=== PATIENT | female | born 1950 | race Caucasian/White ===

== ENCOUNTER 2024-07-17 14:57 | Outpatient (AMB) | payer MEDICARE, SELFPAY ==
[2024-07-17 15:01] VITALS: BP 164/80; PULSE 113; O2SAT 94; BMI 40.4
--- NOTE | 2024-07-17 15:01 | A.OFFVIS_ITS ---
Vital Signs 07/17/24 15:01 Height 5 ft 1 in Weight 213 lb 13.574 oz BMI 40.4 BP 164/80 H Blood Pressure Location Lt brachial Position Sitting Pulse 113 H Pulse Source Pulse Oximeter Pulse Oximetry (%) 94 Oxygen Delivery Method Room Air Intake Visit Reasons: Abnormal CT scan Auto Glass Worker Required: No Manager Personal: Manager Personal offered & declined Allergies aspirin Allergy (Verified 07/17/24 15:17) bleeding iodine Allergy (Verified 07/17/24 15:17) Nausea and Vomiting Penicillins Allergy (Verified 07/17/24 15:17) hives Sulfa (Sulfonamide Antibiotics) Allergy (Verified 07/17/24 15:17) hives Medication List - Last Reconciled 07/17/24 by Mary Kay Pham LPN albuterol sulfate 90 mcg/actuation 1 inh inhalation Q4H PRN fluticasone propionate 50 mcg/actuation (Flonase Allergy Relief) 1 spray intranasal DAILY omeprazole 40 mg PO DAILY HPI Comments Details: 07/17/2024 the patient is here for pulmonary evaluation. The patient is a 74 year woman with a known history of worsening cough. Apparently she was in his usual state health until sometime in April when she started developing significant weakness to the point that she could not even stand. EMS was called to the scene and she was brought to the [facility] ED where she was briefly admitted. The patient did have a a full workup and finally discovered that she had COVID-19. The patient did have a CT scan of the chest during that admission. Initially noncontrast. I did personally reviewed. It appears that she does have enlarged thyroid gland left more than right. In addition to that she has a very narrow trachea with a crescent panchal signs suggesting some degree of proximal tracheomalacia. The resident mid trachea and distal trachea appeared to be completely fine. She also has a 1.3 cm elongated nodule in the right middle lobe area. The next day she did have a CTA that ruled out that this was a vascular structure. Therefore was recommended she have a CT scan 6 months from prior just to make sure to follow it up. The patient has not had any CT scans previously to review. Ultimately she started developing a significant cough after that. The cough is persistent. Is for the most part nonproductive although sometimes she does have some chest congestion. She has had significant laryngospasm that occur after the coughing spells. And sometimes she has loses her breath. She was placed on Breo and also given a course few courses of prednisone. In the Breo she seems to be tolerating okay she also has been using her rescue inhaler often to the point that she tends to be little tachycardic. She is also having some daytime drowsiness. The patient has an elevated [place] score 07/26. Her does state that she has significant snoring. Therefore sleep study will be helpful as well. We did teach her how to use a nebulizer in the office. I do believe a nebulizer will help her with mucus clearance. An Acapella valve will also be requested for c hest PT. will provide her with cough suppressant therapy to keep her from coughing to minimize further injury to her larynx and also proximal trachea. 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 Chronic cough Social History (Updated 07/17/24 @ 15:08 by Mary Kay Pham LPN) Patient Tobacco Use Status: Never used Tobacco Physical Exam Vital Signs: Last Vital Signs Pulse 113 H 07/17/24 15:01 BP 164/80 H 07/17/24 15:01 Pulse Ox 94 07/17/24 15:01 Oxygen Delivery Method Room Air 07/17/24 15:01 BMI result Body Mass Index 40.4 Results Reviewed Results Reviewed: personally review CT chest and CTA 04/2024 with tracheomalecia/crescent panchal sign in the proximal trachea and 1.3 elongated RML density Assessment & Plan Assessment & Plan (1) Chronic cough: Code(s): R05.3 - Chronic cough Category: Medical (2) 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: Code(s): U09.9 - Post COVID-19 condition, unspecified Category: Medical (3) Tracheomalacia: Comment: proximal trachea Code(s): J39.8 - Other specified diseases of upper respiratory tract Category: Medical (4) Pulmonary nodule: Comment: RML 1.3cm, not vascular anomaly based on CTA Code(s): R91.1 - Solitary pulmonary nodule Category: Medical (5) VIOLETTE (obstructive sleep apnea): Code(s): G47.33 - Obstructive sleep apnea (adult) (pediatric) Category: Medical Plan Breo daily start nebulizer with xopenex BID CPT with acapella valve BID cough medicine PSG PFTs Will need a repeat CT chest in 2-3 months F/U 6-8 weeks Orders: Orders RT home sleep study Today G47.33 - Obstructive sleep apnea (adult) (pediatric) PFT pulmonary function test Today R05.3 - Chronic cough Medications: New xsbvnlldzoh-ydgwgqaef-ppbxecve 100-62.5-25 mcg (Trelegy Ellipta) 1 inh inhalation DAILY 30 days 60 ea 11RF J44.9 - Chronic obstructive pulmonary dise ase, unspecified codeine-guaifenesin 10-100 mg/5 mL 10 mL PO Q6H 10 days PRN 300 mL 0RF cough levalbuterol HCl 1.25 mg (3 mL) inhalation BID 30 days 180 mL 6RF J44.9 - Chronic obstructive pulmonary disease, unspecified benzonatate 200 mg PO BID 30 days PRN 60 caps 6RF cough Coding Level of Care Code New Pt Level 5 (50408) Diagnoses Chronic cough R05.3 [id number] syndrome U09.9 Tracheomalacia J39.8 Pulmonary nodule R91.1 VIOLETTE (obstructive sleep apnea) G47.33 Time Spent (min) 60
== END 2024-07-17 16:02 | disposition home or self-care (01) ==
PROVIDERS: PCP Hospitalist; Visit Provider Hospitalist
DX: R05.3 Chronic cough (principal); U09.9 Post COVID-19 condition, unspecified; J39.8 Other specified diseases of upper respiratory tract; R91.1 Solitary pulmonary nodule; G47.33 Obstructive sleep apnea (adult) (pediatric)
CPT/HCPCS: 99205

== ENCOUNTER → 2024-07-17 14:57 | Outpatient (BNVA) | payer MEDICARE, SELFPAY | PROVIDERS: PCP Hospitalist; Visit Provider Hospitalist | DX: R05.3 Chronic cough (principal); R91.1 Solitary pulmonary nodule; J39.8 Other specified diseases of upper respiratory tract; G47.33 Obstructive sleep apnea (adult) (pediatric); U09.9 Post COVID-19 condition, unspecified | CPT/HCPCS: 99202 ==

== ENCOUNTER 2024-07-21 10:33 | Outpatient (REF) | payer MEDICARE, SELFPAY ==
--- NOTE | ~2024-07-21 | US_ITS ---
EXAMINATION: US THYROID CLINICAL INFORMATION: Nontoxic multinodular goiter. COMPARISON: None available. TECHNIQUE: Linear transducer grayscale and color Doppler examination with attention to the region of the thyroid. FINDINGS: SIZE: Measurements of the thyroid lobes and nodules are given in sagittal, anteroposterior and transverse dimensions respectively. Right Thyroid Lobe: 5.0 x 2.3 x 2.8 cm, volume 17.1 mL. Parenchyma: The gland echotexture is heterogeneous. Thyroid vascularity is normal. Left Thyroid Lobe: 5.1 x 3.2 x 3.2 cm, volume 27.6 mL. Parenchyma: The gland echotexture is heterogeneous. Thyroid vascularity is normal. Isthmus: 1.1 cm in maximum AP dimension. Estimated total number of nodules greater than or equal to 1 cm: 3. [employer] nodules are described as follows: 1. Location: Right mid. Size: 1.5 x 1.1 x 1.2 cm, volume 1.0 mL. Nodule characteristics: Composition: Solid (2). Echogenicity: Hypoechoic (2). Shape: Not taller than wide (0). Margins: Smooth (0). Echogenic Foci: None (0). ACR TI-RADS total points: 4 ACR TI-RADS category: 4 2. Location: Right mid/inferior. Size: 0.9 x 1.1 x 0.9 cm, volume 0.5 mL. Nodule characteristics: Composition: Solid (2). Echogenicity: Hyperechoic (1). Shape: Taller than wide (3). Margins: Smooth (0). Echogenic Foci: None (0). ACR TI-RADS total points: 6 ACR TI-RADS category: 4 3. Location: Left inferior. Size: 3.0 x 3.4 x 3.2 cm, volume 17.0 mL. Nodule characteristics: Composition: Solid (2). Echogenicity: Hypoechoic (2). Shape: Taller than wide (3). Margins: Extrathyroidal extension (3). Echogenic Foci: None (0). ACR TI-RADS total points: 10 ACR TI-RADS category: 5 NODES: No lymphadenopathy is seen in the tissue surrounding the thyroid gland. US/US thyroid IMPRESSION: 3.4 cm LEFT TR 5 thyroid nodule and 1.5 cm RIGHT TR 4 thyroid nodule Needs criteria for biopsy. Fine-needle aspiration recommended. Enlarged, heterogeneous multinodular thyroid gland This study was [facility] on [facility], [facility]24 for interpretation. PSA staff will provide results to referring provider at this time. ACR TI-RADS RECOMMENDATION REFERENCE: Ultrasound-guided fine-needle aspiration, followup ultrasound, no further follow up. * TR1 (0 point) and TR2 (2 points): No FNA or follow up. * TR3 (3 points): FNA if more than or equal to 2.5 cm in maximum dimension, followup ultrasound in 1, 3 and 5 years if 1.5 to 2.4 cm in maximum dimension. * TR4 (4-6 points): FNA if more than or equal to 1.5 cm in maximum dimension, followup ultrasound in 1, 2, 3 and 5 years if 1 to 1.4 cm in maximum dimension. * TR5 (more than or equal to 7 points): FNA if more than or equal to 1 cm in maximum dimension, followup ultrasound every year for 5 years if 0.5 to 0.9 cm in maximum dimension. * TR3, TR4 or TR5 nodules that are below the size threshold for followup receive no follow up. Electronically signed by: Edith Moreira MD 09/15/2024 09:11 AM [facility]
== END 2024-07-21 10:34 | disposition home or self-care (01) ==
LOC: HO.US 10:33
PROVIDERS: PCP Hospitalist
DX: E04.2 Nontoxic multinodular goiter (principal)
CPT/HCPCS: 76536

== ENCOUNTER 2024-09-10 12:18 | Outpatient (REF) | payer MEDICARE, SELFPAY ==
--- NOTE | 2024-09-10 12:28 | PFT_ITS ---
Flows: FEV1: 87 % of predicted at 1.62 L FVC: 80 % of predicted at 1.94 L FEV1/FVC: 84 % Bronchodilator response: Bronchodilator testing not performed as patient took albuterol approximately 60 minutes prior to testing. Volumes: Patient unable to perform lung volumes maneuvers. Diffusion capacity: Mildly decreased Impression: No obstructive ventilatory defect. Bronchodilator testing not performed as patient took albuterol approximately 60 minutes prior to testing. Patient unable to perform lung volumes maneuvers. Decreased diffusion capacity suggests emphysema. MTDD
== END 2024-09-10 12:19 | disposition home or self-care (01) ==
LOC: HO.RESP 12:18
PROVIDERS: PCP Hospitalist; Visit Provider Hospitalist
DX: G47.33 Obstructive sleep apnea (adult) (pediatric) (principal); R05.3 Chronic cough
CPT/HCPCS: 94010; 94640; 94727; 94729; 95806

== ENCOUNTER → 2024-09-10 12:28 | Outpatient (BNV) | payer MEDICARE, SELFPAY | PROVIDERS: PCP Hospitalist; Visit Provider Internal Medicine Pulmonary Disease | DX: R05.3 Chronic cough (principal) | CPT/HCPCS: 94060; 94729 ==

== ENCOUNTER 2024-09-17 09:15 | Outpatient (AMB) | payer MEDICARE, SELFPAY ==
--- NOTE | 2024-09-17 09:22 | MHC.OFFVIS ---
Vital Signs 09/17/24 09:25 Weight 200 lb 9.93 oz BP 118/58 L Blood Pressure Location Lt brachial Position Sitting Pulse 86 Pulse Oximetry (%) 96 Oxygen Delivery Method Room Air Intake Visit Reasons: abnormal CT scan Allergies aspirin Allergy (Verified 09/17/24 09:28) bleeding iodine Allergy (Verified 09/17/24 09:) Nausea and Vomiting Penicillins Allergy (Verified 09/17/24 09:28) hives Sulfa (Sulfonamide Antibiotics) Allergy (Verified 09/17/24 09:) hives Medication List - Last Reconciled 09/17/24 by Erika Huerta LPN albuterol sulfate 90 mcg/actuation 1 inh inhalation Q4H PRN benzonatate 200 mg PO BID PRN 30 days fluticasone furoate-vilanterol 200-25 mcg/dose (Breo Ellipta) 1 inh inhalation DAILY fluticasone propionate 50 mcg/actuation (Flonase Allergy Relief) 1 spray intranasal DAILY levalbuterol HCl 1.25 mg (3 mL) inhalation BID 30 days metoprolol succinate ER 25 mg PO DAILY HPI Comments Details: The patient is a 74 year woman with a known history of worsening cough. Apparently she was in his usual state health until sometime in April when she started developing significant weakness to the point that she could not even stand. EMS was called to the scene and she was brought to the [facility] ED where she was briefly admitted. The patient did have a a full workup and finally discovered that she had COVID-19. The patient did have a CT scan of the chest during that admission. Initially noncontrast. I did personally reviewed. It appears that she does have enlarged thyroid gland left more than right. In addition to that she has a very narrow trachea with a crescent panchal signs suggesting some degree of proximal tracheomalacia. The resident mid trachea and distal trachea appeared to be completely fine. She also has a 1.3 cm elongated nodule in the right middle lobe area. The next day she did have a CTA that ruled out that this was a vascular structure. Therefore was recommended she have a CT scan 6 months from prior just to make sure to follow it up. The patient has not had any CT scans previously to review. Ultimately she started developing a significant cough after that. The cough is persistent. Is for the most part nonproductive although sometimes she does have some chest congestion. She has had significant laryngospasm that occur after the coughing spells. And sometimes she has loses her breath. She was placed on Breo and also given a course few courses of prednisone. In the Breo she seems to be tolerating okay she also has been using her rescue inhaler often to the point that she tends to be little tachycardic. She is also having some daytime drowsiness. The patient has an elevated [place] score 11/24. Her does state that she has significant snoring. Therefore sleep study will be helpful as well. We did teach her how to use a nebulizer in the office. I do believe a nebulizer will help her with mucus clearance. An Acapella valve will also be requested for chest PT. will provide her with cough suppressant therapy to keep her from coughing to minimize further injury to her larynx and also proximal trachea. 07/18/2025 the patient is here for a pulmonary follow-up visit. Overall she is feeling better. She is using the nebulizer and also the CPT with a Acapella valve. This has been affecting beneficial. She is also using the inhaler. Her cough is overall better. She is trying the cough technique. She is also using the cough suppressant. She does have evidence of tracheomalacia. In addition to that she does have daytime drowsiness. Her [place] score is elevated 11/24. She did have a sleep study in demonstrated significant sleep apnea. Therefore based on her cardiovascular risk factors with heart disease and has significant daytime drowsiness will be important for her to start CPAP therapy. I briefly spoke to her about it and will go ahead and send a script to the local [facility] in order to provide with the supplies in the expertise. The patient will come back in 3-4 months. I which point the patient will also need a CT scan to follow-up with the pulmonary nodules that she had before. She prefers to have this at [facility]. [facility] Medical History (Updated 07/19/24 @ 20:34 by Raz Amos MD) VIOLETTE (obstructive sleep apnea) Pulmonary nodule Tracheomalacia Oarn-[id number]-[id number] syndrome Chronic cough Social History (Updated 07/17/24 @ 15:08 by Mary Kay Pham LPN) Patient Tobacco Use Status: Never used Tobacco Review of Systems Const Reports daytime sleepiness and Reports snoring Eyes Reports no additional complaints ENT Denies change in voice Card Denies chest pain Resp Reports cough, Reports snoring and Denies wheezing GI Reports no additional complaints Musc Reports myalgias Skin/Breast Denies rash Endo Reports no additional complaints Ricki/Lymph Reports no additional complaints Aller/Immun Denies wheezing Physical Exam Vital Signs: Last Vital Signs Pulse 86 09/17/24 09:25 BP 118/58 L 09/17/24 09:25 Pulse Ox 96 09/17/24 09:25 Oxygen Delivery Method Room Air 09/17/24 09:25 Const General: comfortable HEENT Head: Yes normocephalic Neck Neck: Yes supple Chest Chest palpation & inspection: normal inspection of the chest Resp Effort & Inspection: normal respiratory effort and Actively coughing Auscultation: diminished lung sounds Cardio Heart sounds: S1 normal heart sound present and S2 normal heart sound present GI Palpation (GI): Soft to palpation Skin General skin exam: no rashes or lesions noted Extrem General: No cyanosis Assessment & Plan Assessment & Plan (1) Chronic cough: Code(s): R05.3 - Chronic cough Category: Medical (2) [id number] syndrome: Code(s): U09.9 - Post COVID-19 condition, unspecified Category: Medical (3) Tracheomalacia: Comment: proximal trachea Code(s): J39.8 - Other specified diseases of upper respiratory tract Category: Medical (4) Pulmonary nodule: Comment: RML 1.3cm, not vascular anomaly based on CTA Code(s): R91.1 - Solitary pulmonary nodule Category: Medical (5) VIOLETTE (obstructive sleep apnea): Code(s): G47.33 - Obstructive sleep apnea (adult) (pediatric) Category: Medical Plan Breo daily nebulizer with xopenex BID CPT with acapella valve BID cough medicine start APAP Will need a repeat CT chest. Pt prefers [facility] F/U 3-4 months Orders: Orders CT chest wo IV con 6 Weeks R91.1 - Solitary pulmonary nodule Coding Level of Care Code Est Pt Level 4 (15772) Complex EM visit Add On G2211 Diagnoses Chronic cough R05.3 [id number] syndrome U09.9 Tracheomalacia J39.8 Pulmonary nodule R91.1 VIOLETTE (obstructive sleep apnea) G47.33 Time Spent (min) 17
[2024-09-17 09:25] VITALS: BP 118/58; PULSE 86; O2SAT 96
== END 2024-09-17 09:58 | disposition home or self-care (01) ==
PROVIDERS: PCP Hospitalist; Visit Provider Hospitalist
DX: R05.3 Chronic cough (principal); U09.9 Post COVID-19 condition, unspecified; J39.8 Other specified diseases of upper respiratory tract; R91.1 Solitary pulmonary nodule; G47.33 Obstructive sleep apnea (adult) (pediatric)
CPT/HCPCS: 99214; G2211

== ENCOUNTER → 2024-09-17 09:15 | Outpatient (BNVA) | payer MEDICARE, SELFPAY | PROVIDERS: PCP Hospitalist; Visit Provider Hospitalist | DX: R05.3 Chronic cough (principal); R91.1 Solitary pulmonary nodule; U09.9 Post COVID-19 condition, unspecified; G47.33 Obstructive sleep apnea (adult) (pediatric); J39.8 Other specified diseases of upper respiratory tract | CPT/HCPCS: 99212 ==

== ENCOUNTER 2024-10-30 10:38 | Outpatient (AMB) | payer MEDICARE, SELFPAY ==
[2024-10-30 10:42] VITALS: BP 112/70; PULSE 73; O2SAT 96; BMI 38.3
--- NOTE | 2024-10-30 10:42 | MHC.OFFVIS ---
Vital Signs 10/30/24 10:42 Height 5 ft 1 in Weight 202 lb 13.204 oz BMI 38.3 BP 112/70 Blood Pressure Location Rt brachial Position Sitting Pulse 73 Pulse Source Pulse Oximeter Pulse Oximetry (%) 96 Oxygen Delivery Method Room Air Intake Visit Reasons: Cough Allergies aspirin Allergy (Verified 10/30/24 10:48) bleeding iodine Allergy (Verified 10/30/24 10:48) Nausea and Vomiting Penicillins Allergy (Verified 10/30/24 10:48) hives Sulfa (Sulfonamide Antibiotics) Allergy (Verified 10/30/24 10:48) hives HPI Comments Details: The patient is a 74 year woman with a known history of worsening cough. Apparently she was in his usual state health until sometime in April when she started developing significant weakness to the point that she could not even stand. EMS was called to the scene and she was brought to the [facility] ED where she was briefly admitted. The patient did have a a full workup and finally discovered that she had COVID-19. The patient did have a CT scan of the chest during that admission. Initially noncontrast. I did personally reviewed. It appears that she does have enlarged thyroid gland left more than right. In addition to that she has a very narrow trachea with a crescent panchal signs suggesting some degree of proximal tracheomalacia. The resident mid trachea and distal trachea appeared to be completely fine. She also has a 1.3 cm elongated nodule in the right middle lobe area. The next day she did have a CTA that ruled out that this was a vascular structure. Therefore was recommended she have a CT scan 6 months from prior just to make sure to follow it up. The patient has not had any CT scans previously to review. Ultimately she started developing a significant cough after that. The cough is persistent. Is for the most part nonproductive although sometimes she does have some chest congestion. She has had significant laryngospasm that occur after the coughing spells. And sometimes she has loses her breath. She was placed on Breo and also given a course few courses of prednisone. In the Breo she seems to be tolerating okay she also has been using her rescue inhaler often to the point that she tends to be little tachycardic. She is also having some daytime drowsiness. The patient has an elevated [place] score 11/24. Her does state that she has significant snoring. Therefore sleep study will be helpful as well. We did teach her how to use a nebulizer in the office. I do believe a nebulizer will help her with mucus clearance. An Acapella valve will also be requested for chest PT. will provide her with cough suppressant therapy to keep her from coughing to minimize further injury to her larynx and also proximal trachea. 07/18/2025 the patient is here for a pulmonary follow-up visit. Overall she is feeling better. She is using the nebulizer and also the CPT with a Acapella valve. This has been affecting beneficial. She is also using the inhaler. Her cough is overall better. She is trying the cough technique. She is also using the cough suppressant. She does have evidence of tracheomalacia. In addition to that she does have daytime drowsiness. Her [place] score is elevated 07/26. She did have a sleep study in demonstrated significant sleep apnea. Therefore based on her cardiovascular risk factors with heart disease and has significant daytime drowsiness will be important for her to start CPAP therapy. I briefly spoke to her about it and will go ahead and send a script to the local [employer] company in order to provide with the supplies in the expertise. The patient will come back in 3-4 months. I which point the patient will also need a CT scan to follow-up with the pulmonary nodules that she had before. She prefers to have this at [facility]. 10/30/2024 the patient is here for a pulmonary follow-up visit. She started the CPAP as she has been having hard time tolerating it. Will bring back and forth trying to find her a pressure that she can not tolerate. But her coughing gets worse when she is exhaling and therefore has a hard time. They are wondering a BiPAP but she is already on the lowest pressure 4 cm water so therefore BiPAP would not really play a role. She did have the ERS activated but that did not help either. She has a very sensitive cough right now and therefore would have to control the cough before trying it again. She has responded well to the Tessalon Perles that does not keep her from coughing at nighttime. Therefore will have her try codeine cough syrup will give her a small dose and see if she can tolerate it safely in his she can that we can consider using at nighttime along with her CPAP. She also apparently needs a CT scan of the chest and she has a hard time lying flat. I did have lay flat in the office and she did have some coughing episodes but at least her oxygen and her heart rate were stable. The family has been concerned because she does have some lower extremity edema. This is more than before. Will go ahead and request blood work including a BNP especially with a history heart disease. In addition to this the patient does have a hiatal hernia based on the CT scan that we did review. The patient is already sleeping elevated. She is already stopping her eating at 07:00 o'clock at nighttime and she has has small meals. She has some underlying neurological issues going on in her primary care doctor does wanting to get an MR of the brain but again she has a hard time lying flat so will have to wait for her cough and shortness of breath symptoms to improve before undergoing an MRI. We did again look at the CT scan of the chest that she had a [facility] demonstrating the nodular density in the right middle lobe. And she does have a scheduled CT scan for early December which hopefully the cough is better by then we can have that CT scan done. 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 Chronic cough Social History Patient Tobacco Use Status: Never used Tobacco Review of Systems Const Reports daytime sleepiness and Reports snoring Eyes Reports no additional complaints ENT Denies change in voice Card Denies chest pain and Reports leg edema Resp Reports cough, Reports snoring and Denies wheezing GI Reports no additional complaints Musc Reports myalgias Skin/Breast Denies rash Endo Reports no additional complaints Ricki/Lymph Reports no additional complaints Aller/Immun Denies wheezing Physical Exam Vital Signs: Last Vital Signs Pulse 73 10/30/24 10:42 BP 112/70 10/30/24 10:42 Pulse Ox 96 10/30/24 10:42 Oxygen Delivery Method Room Air 10/30/24 10:42 BMI result Body Mass Index 38.3 Const General: comfortable HEENT Head: Yes normocephalic Neck Neck: Yes supple Chest Chest palpation & inspection: normal inspection of the chest Resp Effort & Inspection: normal respiratory effort and Actively coughing Auscultation: diminished lung sounds Cardio Heart sounds: S1 normal heart sound present and S2 normal heart sound present GI Palpation (GI): Soft to palpation Skin General skin exam: no rashes or lesions noted Extrem General: No cyanosis Results Reviewed Results Reviewed: personally review CT chest and CTA 04/2024 with tracheomalecia/crescent panchal sign in the proximal trachea and 1.3 elongated RML density Assessment & Plan Assessment & Plan (1) Chronic cough: Code(s): R05.3 - Chronic cough Category: Medical (2) 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, unspecified Category: Medical (3) Tracheomalacia: Comment: proximal trachea Code(s): J39.8 - Other specified diseases of upper respiratory tract Category: Medical (4) Pulmonary nodule: Comment: RML 1.3cm, not vascular anomaly based on CTA Code(s): R91.1 - Solitary pulmonary nodule Category: Medical (5) VIOLETTE (obstructive sleep apnea): Code(s): G47.33 - Obstructive sleep apnea (adult) (pediatric) Category: Medical (6) Allergy: Code(s): T78.40XA - Allergy, unspecified, initial encounter Category: Medical Qualifiers: Encounter type: initial encounter Qualified Code(s): T78.40XA - Allergy, unspecified, initial encounter (7) CHF (congestive heart failure): Comment: LE edema, basilar crackles, elevated BNP Code(s): I50.9 - Heart failure, unspecified Category: Medical Qualifiers: Heart failure type: other Qualified Code(s): I50.9 - Heart failure, unspecified Plan Breo daily nebulizer with xopenex BID CPT with acapella valve BID cough medicine: trial codeine cough medicine holding APAP, hopefully retry if codeine helps Will need a repeat CT chest. Once she can lay flat safely bloodwork/allergy testing Diuretics x 3 days F/U 2 months Orders: Orders Resp Allergy Profile Region I 10/30/24 I50.9 - Heart failure, unspecified, R91.1 - Solitary pulmonary nodule, T78.40XA - Allergy, unspecified, initial encounter Basic Metabolic Panel 10/30/24 I50.9 - Heart failure, unspecified, T78.40XA - Allergy, unspecified, initial encounter Erythrocyte Sedimentation Rate 10/30/24 I50.9 - Heart failure, unspecified, T78.40XA - Allergy, unspecified, initial encounter Immunoglobulin E 10/30/24 I50.9 - Heart failure, unspecified, T78.40XA - Allergy, unspecified, initial encounter Complete Blood Count Auto Diff 10/30/24 I50.9 - Heart failure, unspecified, T78.40XA - Allergy, unspecified, initial encounter B Type Natriuretic Peptide 10/30/24 I50.9 - Heart failure, unspecified, T78.40XA - Allergy, unspecified, initial encounter Troponin-I High Sensitivity 10/30/24 I50.9 - Heart failure, unspecified, T78.40XA - Allergy, unspecified, initial encounter Medications: New codeine-guaifenesin 10-100 mg/5 mL 5 mL PO Q6H PRN 200 mL 0RF cough 10 days Coding Level of Care Code Est Pt Level 5 (11964) Diagnoses Chronic cough R05.3 Aydc-BRAEF-11 syndrome U09.9 Tracheomalacia J39.8 Pulmonary nodule R91.1 VIOLETTE (obstructive sleep apnea) G47.33 Allergy, initial encounter T78.40XA Encounter type: initial encounter Other congestive heart failure I50.9 Heart failure type: other Time Spent (min) 60
--- OUTSIDE RECORDS SUMMARY | 2024-10-30 12:08 | XMS_ITS | Clinical Summary ---
[facility] [address] [place] [address] Care Team Providers Care Marriage And Family Social Worker Name Role Phone Valentin Levi MD Primary Care Provider [phone] Surgical History Surgery Date Site/Laterality Comments TOTAL KNEE ARTHROPLASTY 12/2015 Right PROCEDURE: HISTORICAL TOTAL KNEE REPLACE; COMMENT: [place] SHOULDER SURGERY 2012 Left PROCEDURE: HISTORICAL SHOULDER SURGERY; COMMENT: rotator cuff injury, [place]. ELBOW SURGERY 2012 Left PROCEDURE: HISTORICAL ELBOW SURGERY; COMMENT: biceps tendon reattachment, [place]. Medical History Medical History Date Comments Hyperlipidemia DX:Hyperlipidemi a History of knee replacement, total, right 019 DX:History of knee replacement, total, right Family History Medical History Relation Name Comments Esophageal cancer Father at 64 . COPD Mother at 65. Relation Name Status Comments Father Mother Social History Tobacco Use Types Packs/Day Years Used Date Smoking Tobacco: Never Smokeless Tobacco: Never Alcohol Use Standard Drinks/Week Comments No 0 (1 standard drink = 0.6 oz pur e alcohol) Comments Unknown Sex and Gender Information Value Date Recorded Sex Assigned at Not on file Legal Sex Female 5:23 AM EST Gender Identity Not on file Sexual Orientation Not on file Obstetrics History Last Filed Vital Signs Vital Sign Reading Time Taken Comments Blood Pressure 122/76 12/09/2023 1:54 PM EDT Pulse 103 12/09/2023 1:54 PM EDT Temperature - - Respiratory Rate - - Oxygen Saturation - - Inhaled Oxygen Concentration - - Weight 93.9 kg (207 lb 1.6 oz) 12/09/2023 1:54 P M EDT Height 152.4 cm (5') 08/28/2023 1:31 PM EST Body Mass Index 40.45 08/28/2023 1:31 PM EST Plan of Treatment Upcoming Encounters Date Type Department Care Team (Late st Contact Info) Description 11/10/2024 11:00 AM EDT Clinical Support Cardiac and Pulmonary Rehabilitation - [facility] [address] [place] [address] Health Maintenance Due Date Last Done Comments Pneumococcal Vaccine: 50+ Years (1 of 1 - PCV) 1999 Zoster Vaccines (1 of 2) 1999 Cholesterol Screening (Lipid Panel) 08/05/2022 Colorectal Cancer Screening: Stool Based Tests (FOBT/FIT) 08/05/2022 Depression Screening 08/05/2022 Falls Risk Assessment 08/05/2022 Hepatitis C Screening 08/05/2022 Medicare Annual Wellness Visit 08/05/2022 Social Influencers of Health Screening 08/05/2022 COVID-19 Vaccine (2 - 2023-2 5 season) 2024 02/13/2021 Influenza Vaccine (#1) 2024 RSV Immunization Patients 60 + Years Old (1 - 1-dose 75+ series) 2024 Osteoporosis Screening (Bone Density Screening) 04/27/2029 04/27/2019 DTaP,Tdap,and Td Vaccines (3 - Td or Tdap) 05/23/2033 05/23/2023, 10/08/2018 HIB Vaccines Aged Out No longer eligi ble based on patient's age to complete this topic HPV Vaccines Aged Out No longer eligi ble based on patient's age to complete this topic Hepatitis A Vaccines Aged Out No long er eligible based on patient's age to complete this topic Hepatitis B Vaccines Aged Out No long er eligible based on patient's age to complete this topic IPV Vaccines Aged Out No longer eligi ble based on patient's age to complete this topic MMR Vaccines Aged Out No longer eligi ble based on patient's age to complete this topic Meningococcal ACWY Vaccine Aged Out N o longer eligible based on patient's age to complete this topic Meningococcal B Vacine Aged Out No lo nger eligible based on patient's age to complete this topic RSV Immunization Patients Under 20 months Aged Out No longer eligible b ased on patient's age to complete this topic Varicella Vaccines Aged Out No longer eligible based on patient's age to complete this topic Procedures Procedure Name Priority Date/Time Associated Diagnosis Comments DXA BONE DENSITY STUDY 1+ SITS AXIAL SKEL Routine 04/27/2019 2:36 PM EDT Encounter for screening for osteoporosis from Last 3 Months or Most Recently Relevant to Health Maintenance Results * DXA BONE DENSITY STUDY 1+ SITS AXIAL SKEL (04/27/2019 2:36 PM EDT) Anatomical Region Laterality Modality Bone Densitometr y 04/08/2019 11:0 9 AM EDT Narrative 04/27/2019 3:38 PM EDT BONE DENSITY ? Lumbar Spine T-score is +2.6 ?? (SD relative to 20-29 y/o adult) Z-score is +4.6 ??(SD relative to age matched peers) This is normal by criteria defined by the WHO. Left Hip T-score is +1.4 Z-score is +3.3 This is normal by criteria defined by the WHO. Impression: Based on the World Health Organization criteria, Yaquelin Chavez should be classified as having normal bone density. The [facility] Department of Internal Medicine recommends using National Osteoporosis Foundation (NOF) guidelines in treatment decisions related to osteoporosis. NOF guidelines suggest considering treatment for postmenopausal women and men aged 50 or older presenting with the following: History of hip or vertebral fracture. T-score less than or equal to -2.5 (DXA) at the femoral neck, total hip, or spine, after appropriate evaluation to exclude secondary causes. Low bone mass (T-score between -1.0 and -2.5 at the femoral neck or spine) AND a 10-year probability of a hip fracture greater than or equal to 3% OR a 10-year probability of a major osteoporosis-related fracture greater than or equal to 20% based on the [place]-adapted WHO algorithm Please note that all treatment decisions require clinical judgment and consideration of individual patient factors, including patient preferences, co-morbidities, previous drug use, risk factors not captured in the FRAX model (e.g., frailty, falls, vitamin D deficiency, increased bone turnover, interval significant decline in bone density) and possible under- or over-estimation of fracture risk by FRAX. Procedure Note Addison Aranda - 08/21/2022 BONE DENSITY Lumbar Spine T-score is +2.6 (SD relative to 20-29 y/o adult) Z-score is +4.6 (SD relative to age matched peers) This is normal by criteria defined by the WHO. Left Hip T-score is +1.4 Z-score is +3.3 This is normal by criteria defined by the WHO. Impression: Based on the World Health Organization criteria, Yaquelin E Scott shouldbe classified as having normal bone density. The [facility] Department of Internal Medicine recommendsusing National Osteoporosis Foundation (NOF) guidelines in treatmentdecisions related to osteoporosis. NOF guidelines suggest consideringtreatment for postmenopausal women and men aged 50 or older presentingwith the following: History of hip or vertebral fracture. T-score less than or equal to -2.5 (DXA) at the femoral neck, total hip,or spine, after appropriate evaluation to exclude secondary causes. Low bone mass (T-score between -1.0 and -2.5 at the femoral neck or spine)AND a 10-year probability of a hip fracture greater than or equal to 3% ORa 10-year probability of a major osteoporosis-related fracture greaterthan or equal to 20% based on the [place]-adapted WHO algorithm Please note that all treatment decisions require clinical judgment andconsideration of individual patient factors, including patientpreferences, co-morbidities, previous drug use, risk factors not capturedin the FRAX model (e.g., frailty, falls, vitamin D deficiency, increasedbone turnover, interval significant decline in bone density) and possibleunder- or over-estimation of fracture risk by FRAX. Raquel Cheng MD IMCyn[facility] DXA PROCEDURES Final Result from Last 3 Months or Most Recently Relevant to Health Maintenance Insurance [employer] MEDICARE Care Teams Marriage And Family Social Worker Relationship Specialty Start Date End Date Valentin Levi MD [address] [place] [address] PCP - General 05/26/24
--- OUTSIDE RECORDS SUMMARY | 2024-10-30 12:08 | XMS_ITS | Continuity of Care Document ---
Author Organization [place] - [facility], [facility] Address [address] [place] [address] Care Team Providers Care Railway Signal Technician Name Role Phone JOESPHPERRYCHALO CARA Primary Care Provider Assessment Encounter Date Assessment Date Assessment LastModified by Organization Details LastModified Time 09/30/2024 09/30/2024 Hx of cough and COVID in AprilAugust 16 requiring stent and severe COVID with chronic cough. Has had some hoarseness. Swallowing study normal. [email or web address] Not available 09/30/2024 17:12:20 Plan of Treatment Reminders Order Date Submit Date Provider Last Modified By Organization Details Last Modified Time Details Appointments None recorded . Lab None recorded . Referral speech therapy referral [address], [address], 5 11:03:59 Procedures None recorded . Surgeries None recorded . Imaging None recorded . Medication Orders None recorded . Patient TargetsNo targets recorded. Patient InstructionsNo instructions recorded. Reason for Referral Referring Physician: Chris bui, Otolaryngology, Encounter Date: 09/30/2024 Problems Name Problem SNOMED Code Status Onset Date Resolution Date Notes Provider Name and Address Organization Details Recorded Time Sensorineural hearing loss of bilateral ears 714207073 Active 2023 ELIANA LORENZANA [address], [address] [place] - [facility] 4 10:35:36 Unsteady when walking 91115470 Active 2023 VANDANA REHMAN MD [address] [facility],[place] [address], [place], [address], [place] - [facility] 4 11:15:19 Chronic cough 07463663 Active 2024 CHRIS NUNEZ MD [address] [place] [address], [place], [address], [place] - [facility] 5 20:24:15 Vocal nodules in adults 45541644 Active 2024 CHRIS NUNEZ MD [address] [facility],[place] [address], [place], [address], [place] [facility] 15:44:27 Tracheomalacia 07522477 Active 2024 CHRIS NUNEZ MD [address] [facility],[place] [address], [place], [address], [place] [facility] 15:44:41 Problem Notes None recorded. Procedures Surgical History Date Name Laterality Status Provider Name and Address Organization Details Recorded Time 09/30/19 25 Fiberoptic Laryngoscopy (Comprehensive) completed CHRIS WARREN MD [address], [address], [place] - [facility] 09/30/2024 15:44:06 02/06/20 24 Comp Audio with Tymps (86694 & 23597) completed ELIANA LORENZANA [address], [address], [place] [facility] 02/06/2024 10:34:07 total knee replacement completed Brianna Daniels [place] - [facility] 02/06/2024 10:37:01 procedure on shoulder completed Brianna Daniels [place] - [facility] 02/06/2024 10:37:09 complete repair of rotator cuff completed Brianna Daniels [place] [facility] 02/06/2024 10:37:40 procedure on elbow completed Brianna Daniels [place] [facility] 02/06/2024 10:38:13 Imaging Results None recorded. Procedure Notes None recorded. Medical Equipment None Reported. Allergies Allergen ID Allergen Name Allergen Category Reaction Reaction Severity Criticality Documentation Date Start Date Code Code System Note Provider Name and Address Organization Details Recorded Time 518806 Product containin g penicilli n (product) medicatio n Not available Not available Not available 02/06/2024 73617 8001 SNOMED Brianna [place], [place] - [facility] 10:28:43 657498 Substance with sulfonami de structure and antibacte rial mechanism of action (substanc e) medicatio n Not available Not available Not available 02/06/2024 84483 8003 SNOMED Brianna [place], [place] - [facility] 10:28:50 545515 wheat preparati on food,medi cation Not available Not available Not available 02/06/2024 09158 52 RxNorm Brianna [place], [place] - [facility] 10:28:58 185735 soy environme nt,food,m edication Not available Not available Not available 02/06/2024 39519 UNK Brianna [place] - [facility] 10:29:04 025559 shellfish derived food,medi cation Not available Not available Not available 02/06/2024 45295 UNK Brianna [place] - [facility] 4 10:29:41 037935 iodine medicatio n Not available Not available Not available 09/30/2024 5933 RxNorm Brianna [place]ton [place] - [facility] 5 15:46:41 076266 aspirin medicatio n Not available Not available Not available 09/30/2024 1191 RxNorm Brianna [place], [place] - [facility] 5 15:46:48 Medications Name Sig Start Date Stop Date Status Note LastModified by Organization Details LastModified Time atorvastati n 80 mg tablet Take 1 tablet every day by oral route. active Not Available Not Available No t Available Prilosec 20 mg capsule,del ayed release Take 1 capsule every day by oral route. 09/30 completed Not Available Not Available Not Available clopidogrel 75 mg tablet Take 1 tablet every day by oral route. active Not Available Not Available No t Available aspirin 81 mg capsule,del ayed release Take by oral route. active Not Available Not Available No t Available benzonatate 100 mg capsule Take 1 capsule 3 times a day by oral route. active Not Available Not Available No t Available pantoprazol e 40 mg tablet,andrea yed release Take 1 tablet every day by oral route. active Not Available Not Available No t Available losartan 25 mg tablet Take 1 tablet every day by oral route. active Not Available Not Available No t Available Breo Ellipta active Not Available Not Available Not Available metoprolol succinate ER 50 mg capsule sprinkle, ext. release 24 hr Take 1 capsule every day by oral route. active Not Available Not Available No t Available albuterol sulf 90 mcg/actuati on breath activated powder inhaler,sen sor Inhale 2 puffs every 4 hours by inhalatio n route. active Not Available Not Available No t Available Vitals None Recorded Social History None recorded. Functional Status None recorded. Mental Status None recorded. Family History Nothing Reported. Medical History Condition Response Thyroid Problems Y Heart Attack ([place]) Y Arthritis Y Hyperlipidemia Y GERD/Reflux Y Hypertension Y Gynecological HistoryNo gynecological history recorded. Obstetrics History GPAL:G 0 P 0 0 0 0 Past Encounters Encounter ID Performer Location Encounter Start Date Encounter Closed Date Diagnosis/Indication Diagnosis SNOMED-CT Code Diagnosis ICD10 Code Diagnosis Note [id number] CHRIS FREEMAN MD [facility] [address] [address] 09/30/2024 14:39:01 09/30/2024 15:53:55 Chronic cough 21215191 R05.3 Daughter reports chronic cough that was present prior to COVID but has been voice. I do not see any anatomical cause. Consider CT of sinus if sx persist. Vocal nodu les in adults 13907051 J38.2 Daughter reports voice is actually improved. There is small nodule on the right side. Speech is fluent. Daughter concerned about slurred speech Tracheomalacia 60920258 Q32.0 Sent by PCP here for management of tracheomal acia. Unfortunat clarisa this is in the purview of pulmonary or thoracic surgery. Her upper airway is normal except for the vocal nodule. Follow with Pulmonary or Thoracic if needed Health Concerns Section Related Observation LastModified by Organization Detai ls LastModified Time None Recorded Concern Status LastModified by Organization Details LastModified Time None Recorded Payers Encounter Date Sequence Insurance Name Policy Number Policy Ayala Covered Member ID Ayala Member ID Guarantor Name 09/30/2024 1 [facility] (MEDICARE REPLACEMENT/A DVANTAGE - HMO) [id number] Yaquelin Chavez [id number] Yaquelin Chavez Notes Date Note Type Note Provider Name and Address Organization Details Recorded Time 09/30/2024 text/html cough since COVI D 04/2024. Seeing pulmonary-Dr Ellsworth. Denies sinus issuesHad PFTs suggestive of COPD. Reports dx of tracheomalacia on imagingHad mobility issues after COVID and has muscle weakness. No cough today Her recent hospital discharge summary she has a past medical history significant for hypertension hyperlipidemia, reflux, diverticulitis, post-COVID syndrome, hepatic steatosis, cough and dyspnea who was found to have a STEMI requiring stenting of the right coronary artery. Cough improved after starting PPI. MBS was unremarkable. CT scan showed tracheomalacia. CHRIS WARREN MD [address] [place] [address],[place] [address], [place], [address], [facility] - [facility] 09/30/2024 17:13:25 OBGyn Episode No OBEpisode recorded.
--- OUTSIDE RECORDS SUMMARY | 2024-10-30 12:09 | XMS_ITS ---
Author Organization [employer] Address [address] [place] [address] Care Team Providers Care Inclusion Special Educator Name Role Phone LUCILA CORDERO Primary Care Provider Georgi Tierney Unavailable [phone] Allergies Allergen (clinical drug ingredient) Drug/Non Drug Allergy documented on EMR Reaction Allergy Type Onset Date Status Wheat wheat (uncoded) Unknown Allergy Acti ve aspirin Aspirin excessive bleeding Drug Allergy Active Iodine nausea and vomiting Drug Allergy Active Penicillin hives Drug Allergy Active Shellfish (FN) Shellfish-derived Products Unknown Drug Allergy Active Substance with sulfonamide structure and antibacterial mechanism of action (substance) Sulfa Antibiotics hives Drug Allergy Active REASON FOR VISIT slurred speech and confusion Medications Medication SIG (Take, Route, Frequency, Duration) Notes Start Date End Date Status Fluticasone Furoate-Vilanterol 100-25 MCG/ACT 1 puff Inhalation Once a day for 30 days 05/15/2024 Not-Taking predniSONE 10 MG take 4 tablets a day for 3 days, then 3 tablets a day for 3 days, then 2 tablets a day for 3 days, then 1 tablet a day for 3 days Orally Once a day for 12 days 05/15/2024 Not-Taking Symbicort 80-4.5 MCG/ACT 1 puff as neede d Inhalation Twice a day for 30 days 05/21/2024 Not-Taking guaiFENesin-Codeine 200-8 MG/5ML 5 mL as needed Orally every 6 hrs for 14 days 04/29/2024 Not-Taking Azithromycin 250 MG as directed Orally 2 tablets on the first day, then 1 tablet daily for 5 days 04/29/2024 Not-Taking Aspirin 81 MG 1 tablet Orally Once a day for 30 days Active Omeprazole 20 MG 1 capsule 30 minutes before morning meal Orally Once a day for 90 days Not-Taking Breo Ellipta 100-25 MCG/ACT 1 puff Inhalation Once a day for 30 days 05/18/2024 Not-Taking Delsym Cgh/Chest Pineda DM Child 5-100 MG/5ML as directed Orally Not -Taking predniSONE 20 MG 1 tablet Orally Once a day for 7 days 04/29/2024 Not-Taking Breo Ellipta 200-25 MCG/ACT INHALE 1 PUFF INTO THE LUNGS EVERY DAY for 30 Active Nystatin 269354 UNIT/GM 1 application Externally Twice a day for 30 days 09/09/2024 Active Benzonatate 200 MG 1 capsule Orally Thr ee times a day for 30 days 09/09/2024 Active Pantoprazole Sodium 40 MG 1 tablet 1/2 t o 1 hour before morning meal Orally twice a day for 30 days Active Benzonatate 100 MG 1 capsule as needed Orally Three times a day for 7 days 03/31/2024 Active Atorvastatin Calcium 80 MG 1 tablet Oral ly Once a day Active Trelegy Ellipta 200-62.5-25 MCG/ACT 1 puff Inhalation Once a day for 30 days 07/22/2024 Active Albuterol Sulfate HFA 108 (90 Base) MCG/ACT 1 puff as needed Inhalation every 4 hrs for 30 days Active Robitussin Cold Cough+ Chest prn Active Metoprolol Succinate ER 50 MG 1 tablet Orally Once a day Active Clopidogrel Bisulfate 75 MG 1 tablet Orally Once a day Active diphenhydrAMINE HCl 25 MG 1 capsule at b edtime as needed Orally Once a day for 2 days 10/29/2024 Active Problems Problem Type SNOMED Code ICD Code Onset Dates Problem Status W/U Status Risk Notes Problem 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) (8671259529) Post COVID-19 condition, 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) Active confirmed Vital Signs Temperature 96.5 degrees Fahrenheit 10/29/19 25 Oximetry 95 % 10/29/2024 Heart Rate 72 /min 10/29/2024 Blood pressure systolic 130 mm Hg 10/29/19 25 Blood pressure diastolic 80 mm Hg 025 Weight 204.8 lbs 10/29/2024 BMI 59.96 kg/m2 10/29/2024 Height 4'1'' in 10/29/2024 Encounters Encounter Location Date Provider Diagnosis [facility] [address] [place] [address] 10/29/2024 Georgi Tierney Slurred speech R47.8 1 ; Cough, unspecified R05.9 and Post COVID-19 condition, unspecified U09.9 Assessments Encounter Date Diagnosis (ICD Code) Assessment Notes Treatment Notes Treatment Clinical Notes Section Notes 10/29/2024 Slurred speech (ICD-10 - R47.81) 74-yrs with history of post coitus syndrome, hypertension, ST elevation WA status post stent, chronic cough tracheomalacia is here today for multiple complaints including intermittent blurry vision left-sided weakness and unsteady gait and fatigue reported slurred speech and left arm weakness. Patient is currently speaking very clearly making full sentences. is also present, there is no evidence of any neurological deficit. Patient states that it comes and goes, she feels weak and dizzy after she takes her antihypertensives . She is also complaining of ongoing cough. Patient is on metoprolol 50 mg daily and also losartan 25 mg daily reviewed her blood pressure recording at home she drops her blood pressure from 120s and 130 systolically to 101 and 102, patient reports she started feeling dizzy at that time. She be symptomatic with low blood pressure. With ongoing cough and low blood pressure as patient is symptomatic we will stop losartan. We have recommended encourage by mouth fluid intake. We also discussed about MRI of brain although she is on an appropriate treatment for stroke which includes aspirin and Plavix I spoke to patient's daughter and . Patient states she cannot tolerate MRI and cannot lay down. I will order an MRI of the brain have recommended that she takes Benadryl along with a small dose of Ativan to try the imaging however patient does not feel like she can undergo the testing. She also has upcoming CT of the chest per Dr. Amos and she is already worried about her being laying down. Overall fatigue weakness, her neurological exam is unremarkable. Pronator test is negative she is alert and oriented. Most likely post coital syndrome as the symptoms has been present since last year. We would recommend physical therapy and VNA services for blood pressure check and gait stability Lower extremity edema mostly dependent edema sitting in the chair the whole day we recommend out of bed ambulation we also recommended Nam wrap's and elevation History of ST elevation WA status post stent placement mid RCA DS, left main is 45% stenosis but medically treated. Patient was seen by Dr. Santos she will follow up as an outpatient with [facility] in 4-6 weeks. Continue with aspirin, continue Plavix 75 [place] daily atorvastatin 80 mg daily and metoprolol Lung nodulet followed by Dr. Amos pulmonology in [place] .Thyroid nodule she has history of subclinical hypothyroidism, multiple questions were answered today, spoke to patient's and daughter at length 10/29/2024 Cough, unspecified (ICD-10 - R05.9) 74-yrs with history of post coitus syndrome, hypertension, ST elevation [place] status post stent, chronic cough tracheomalacia is here today for multiple complaints including intermittent blurry vision left-sided weakness and unsteady gait and fatigue reported slurred speech and left arm weakness. Patient is currently speaking very clearly making full sentences. is also present, there is no evidence of any neurological deficit. Patient states that it comes and goes, she feels weak and dizzy after she takes her antihypertensives . She is also complaining of ongoing cough. Patient is on metoprolol 50 mg daily and also losartan 25 mg daily reviewed her blood pressure recording at home she drops her blood pressure from 120s and 130 systolically to 101 and 102, patient reports she started feeling dizzy at that time. She be symptomatic with low blood pressure. With ongoing cough and low blood pressure as patient is symptomatic we will stop losartan. We have recommended encourage by mouth fluid intake. We also discussed about MRI of brain although she is on an appropriate treatment for stroke which includes aspirin and Plavix I spoke to patient's daughter and . Patient states she cannot tolerate MRI and cannot lay down. I will order an MRI of the brain have recommended that she takes Benadryl along with a small dose of Ativan to try the imaging however patient does not feel like she can undergo the testing. She also has upcoming CT of the chest per Dr. Amos and she is already worried about her being laying down. Overall fatigue weakness, her neurological exam is unremarkable. Pronator test is negative she is alert and oriented. Most likely post coital syndrome as the symptoms has been present since last year. We would recommend physical therapy and VNA services for blood pressure check and gait stability Lower extremity edema mostly dependent edema sitting in the chair the whole day we recommend out of bed ambulation we also recommended Nam wrap's and elevation History of ST elevation [place] status post stent placement mid RCA DS, left main is 45% stenosis but medically treated. Patient was seen by Dr. Santos she will follow up as an outpatient with [facility] in 4-6 weeks. Continue with aspirin, continue Plavix 75 [place] daily atorvastatin 80 mg daily and metoprolol Lung nodulet followed by Dr. Amos pulmonology in [place] .Thyroid nodule she has history of subclinical hypothyroidism, multiple questions were answered today, spoke to patient's and daughter at length 10/29/2024 Post COVID-19 condition, unspecified (ICD-10 - U09.9) 74-yrs with history of post coitus syndrome, hypertension, ST elevation WA status post stent, chronic cough tracheomalacia is here today for multiple complaints including intermittent blurry vision left-sided weakness and unsteady gait and fatigue reported slurred speech and left arm weakness. Patient is currently speaking very clearly making full sentences. is also present, there is no evidence of any neurological deficit. Patient states that it comes and goes, she feels weak and dizzy after she takes her antihypertensives . She is also complaining of ongoing cough. Patient is on metoprolol 50 mg daily and also losartan 25 mg daily reviewed her blood pressure recording at home she drops her blood pressure from 120s and 130 systolically to 101 and 102, patient reports she started feeling dizzy at that time. She be symptomatic with low blood pressure. With ongoing cough and low blood pressure as patient is symptomatic we will stop losartan. We have recommended encourage by mouth fluid intake. We also discussed about MRI of brain although she is on an appropriate treatment for stroke which includes aspirin and Plavix I spoke to patient's daughter and . Patient states she cannot tolerate MRI and cannot lay down. I will order an MRI of the brain have recommended that she takes Benadryl along with a small dose of Ativan to try the imaging however patient does not feel like she can undergo the testing. She also has upcoming CT of the chest per Dr. Amos and she is already worried about her being laying down. Overall fatigue weakness, her neurological exam is unremarkable. Pronator test is negative she is alert and oriented. Most likely post coital syndrome as the symptoms has been present since last year. We would recommend physical therapy and VNA services for blood pressure check and gait stability Lower extremity edema mostly dependent edema sitting in the chair the whole day we recommend out of bed ambulation we also recommended Nam wrap's and elevation History of ST elevation [place] status post stent placement mid RCA DS, left main is 45% stenosis but medically treated. Patient was seen by Dr. Santos she will follow up as an outpatient with [facility] in 4-6 weeks. Continue with aspirin, continue Plavix 75 [place] daily atorvastatin 80 mg daily and metoprolol Lung nodulet followed by Dr. Amos pulmonology in [place] .Thyroid nodule she has history of subclinical hypothyroidism, multiple questions were answered today, spoke to patient's and daughter at length Plan Of Treatment Medication Medication Name Sig Start Date Stop Date Notes diphenhydrAMINE HCl 25 MG 1 capsule at b edtime as needed Orally Once a day for 2 days 10/29/2024 Pending Test Test Name Order Date MR C[place]illo WO 10/29/2024 Next Appt Details Provider Name:Georgi Tierney, 0 12/22/2024 11:30:00 AM, [address] [place] [address], [id number], Progress Notes * ONDINA YOUSSEFDEEDEEOB: [birth year] (74 yo F)Acc No.[id number]:10/29/2024 Patient:?YAQUELIN YOUSSEF Provider:?Georgi Tierney, :1950???Age:74 Y???Sex:Female D ate:10/29/2024 Phone: Address:[address] [place] [address], [place], [phone] Pcp:LUCILA CORDERO Subjective: * Chief Complaints: * ???Slurred speech and confus ion * HPI: ???Internal Medicine:?Yaquelin is 74 years old lady with acid reflux, arthritis and diverticulitis, hypertension, hiatal hernia, GERD, post covert syndrome, recent diagnosis of tracheomalacia , ST elevation WA in August 2024 and was treated at [facility]. patient received a mid RCA DS also the left main was 45% stenosed however he was medically managed.? patient is here today with her complaining of feeling weak and dizzy and at times she feels her left is weaker she has multiple other complaints including blurry vision which is intermittent, difficulty walking.? She also is complaining of lower extremity edema. patient also has a chronic cough,? ?was seen by pulmonology and recommended to start PPI twice a day she will also be having a pulmonology outpatient follow-up.? Patient was seen by speech therapy and also a barium swallow was done which was unremarkable but there was some question of tracheomalacia.? patient is supposed to be following with pulmonology Dr. Amos for lung mass and needs a CT of the chest however due to persistent cough and not able to lay down imaging could not have been completed.? I have a long discussion with the patient and her daughter over the phone about the multiple complaints.? We also reviewed her blood pressure recordings at home showing that her blood pressure drops from 1 2130 systolically 202 after medications in the morning she takes metoprolol and losartan.? Patient reports that she feels dizzy later in the day.? She also has blurry vision at times.? She is also telling me that the symptoms of weakness and gait instability is since May 2024 after her cope with infection. * ROS:?General/Constitutional:?Overall health?Good.?Change in appetite?denies.?Chills?denies.?Fever?denies.?Night sweats?denies.?Sleep disturbance?denies.?Weight gain?denies.?Weight loss?denies.?Neurologic:?Difficulty speaking?denies.?Dizziness?denies.?Gait abnormality?overall weakness fatigue.?Headache?denies.?Loss of strength?denies.?Memory loss?denies.?Seizures?denies.?Tingling/Numbness?denies .?Ophthalmologic:?Blurred vision?denies.?Discharge?denies.?Dry eye?denies.?Red eye?denies.?ENT:?Change in Voice?Denies.?Cold Symptoms?Denies.?Cough?,Admits.?Dizziness?Denies.?Nasal Congestion?Denies.?Otalgia?Denies.?postnasal drip?Denies.?Blocked ear?denies.?Nosebleed?denies.?Snoring?denies.?Cardiovascular:?Diaphoresis?Denies.?Pedal Edema?Denies.?PND (Paroxsymal nocturnal dyspnea)?Denies.?Chest pain?denies.?Difficulty laying flat?denies.?Dyspnea on exertion?denies.?Heart murmur?denies.?Orthopnea?denies.?Respiratory:?Snoring?denies.?Asthma?denies.?Cough?denies.?Shortness of breath with exertion?denies.?Sputum production?denies.?Wheezing?denies.?Gastrointestinal:?Change in bowel habits?denies.?Constipation?denies.?Decreased appetite?denies.?Diarrhea?denies.?Heartburn?denies.?Nausea?denies.?Vomiting?jass es.?Musculoskeletal:?tingling/numbness?Denies.?myalgias?Denies.?Joint Swelling?Denies.?extremeties?normal.?Arthritis?denies.?Back problems?denies.?Carpal tunnel?denies.?Joint stiffness?denies.?Muscle aches?denies.?Endocrine:?Bowel Changes?Denies.?Breast Discharge?Denies.?poor libido?Denies.?Cold intolerance?denies.?Excessive sweating?denies.?Excessive thirst?denies.?Frequent urination?denies.?Thyroid problems?denies.?Skin:?Bruising?Denies.?Eczema?denies.?Hair changes?denies.?Rash?denies.?Skin lesion(s)?denies.?Psychiatric:?Anxiety?denies.?Depressed mood?denies.?Difficulty sleeping?denies.?Nervous breakdown?denies.?Substance abuse?denies.?Urology:?abnormal menstrual bleeding?denies.?blood in urine?denies.?burning on urination?denies.?difficulty urinating?denies.?discharge?denies.?dysuria?denies.? * Medical History:? * Medications:?TakingMetoprolo l Succinate ER 50 MG Tablet Extended Release 24 Hour 1 tablet Orally Once a day Clopidogrel Bisulfate 75 MG Tablet 1 tablet Orally Once a day Atorvastatin Calcium 80 MG Tablet 1 tablet Orally Once a day Trelegy Ellipta 200-62.5-25 MCG/ACT Aerosol Powder Breath Activated 1 puff Inhalation Once a day Albuterol Sulfate HFA 108 (90 Base) MCG/ACT Aerosol Solution 1 puff as needed Inhalation every 4 hrs Robitussin Cold Cough+ Chest , Notes to Pharmacist: prnBenzonatate 100 MG Capsule 1 capsule as needed Orally Three times a day Breo Ellipta 200-25 MCG/ACT Aerosol Powder Breath Activated INHALE 1 PUFF INTO THE LUNGS EVERY DAY Nystatin 554145 UNIT/GM Powder 1 application Externally Twice a day Benzonatate 200 MG Capsule 1 capsule Orally Three times a day Pantoprazole Sodium 40 MG Tablet Delayed Release 1 tablet 1/2 to 1 hour before morning meal Orally twice a day Aspirin 81 MG Tablet Delayed Release 1 tablet Orally Once a day Taking Metoprolol Succinate ER 50 MG Tablet Extended Release 24 Hour 1 tablet Orally Once a day Taking Clopidogrel Bisulfate 75 MG Tablet 1 tablet Orally Once a day Taking Atorvastatin Calcium 80 MG Tablet 1 tablet Orally Once a day Taking Trelegy Ellipta 200-62.5-25 MCG/ACT Aerosol Powder Breath Activated 1 puff Inhalation Once a day Taking Albuterol Sulfate HFA 108 (90 Base) MCG/ACT Aerosol Solution 1 puff as needed Inhalation every 4 hrs Taking Robitussin Cold Cough+ Chest , Notes to Pharmacist: prnTaking Benzonatate 100 MG Capsule 1 capsule as needed Orally Three times a day Taking Breo Ellipta 200-25 MCG/ACT Aerosol Powder Breath Activated INHALE 1 PUFF INTO THE LUNGS EVERY DAY Taking Nystatin 346001 UNIT/GM Powder 1 application Externally Twice a day Taking Benzonatate 200 MG Capsule 1 capsule Orally Three times a day Taking Pantoprazole Sodium 40 MG Tablet Delayed Release 1 tablet 1/2 to 1 hour before morning meal Orally twice a day Taking Aspirin 81 MG Tablet Delayed Release 1 tablet Orally Once a day Not-TakingOmeprazole 20 MG Capsule Delayed Release 1 capsule 30 minutes before morning meal Orally Once a day Breo Ellipta 100-25 MCG/ACT Aerosol Powder Breath Activated 1 puff Inhalation Once a day Delsym Cgh/Chest Pineda DM Child 5-100 MG/5ML Liquid as directed Orally predniSONE 20 MG Tablet 1 tablet Orally Once a day guaiFENesin-Codeine 200-8 MG/5ML Liquid 5 mL as needed Orally every 6 hrs Azithromycin 250 MG Tablet as directed Orally 2 tablets on the first day, then 1 tablet daily Fluticasone Furoate-Vilanterol 100-25 MCG/ACT Aerosol Powder Breath Activated 1 puff Inhalation Once a day predniSONE 10 MG Tablet take 4 tablets a day for 3 days, then 3 tablets a day for 3 days, then 2 tablets a day for 3 days, then 1 tablet a day for 3 days Orally Once a day Symbicort 80-4.5 MCG/ACT Aerosol 1 puff as needed Inhalation Twice a day Not-Taking Omeprazole 20 MG Capsule Delayed Release 1 capsule 30 minutes before morning meal Orally Once a day Not-Taking Breo Ellipta 100-25 MCG/ACT Aerosol Powder Breath Activated 1 puff Inhalation Once a day Not-Taking Delsym [facility]/Chest Pineda DM Child 5-100 MG/5ML Liquid as directed Orally Not-Taking predniSONE 20 MG Tablet 1 tablet Orally Once a day Not-Taking guaiFENesin-Codeine 200-8 MG/5ML Liquid 5 mL as needed Orally every 6 hrs Not- Taking Azithromycin 250 MG Tablet as directed Orally 2 tablets on the first day, then 1 tablet daily Not-Taking Fluticasone Furoate-Vilanterol 100-25 MCG/ACT Aerosol Powder Breath Activated 1 puff Inhalation Once a day Not-Taking predniSONE 10 MG Tablet take 4 tablets a day for 3 days, then 3 tablets a day for 3 days, then 2 tablets a day for 3 days, then 1 tablet a day for 3 days Orally Once a day Not-Taking Symbicort 80-4.5 MCG/ACT Aerosol 1 puff as needed Inhalation Twice a day DiscontinuedLosartan Potassium 25 MG Tablet TAKE 1 TABLET BY MOUTH EVERY DAY FOR 30 DAYS Medication List reviewed and reconciled with the patientDiscontinued Losartan Potassium 25 MG Tablet TAKE 1 TABLET BY MOUTH EVERY DAY FOR 30 DAYS Medication List reviewed and reconciled with the patient * Allergies:?Aspirin: excessiv e bleeding - AllergyPenicillin: hives - AllergySulfa Antibiotics: hives - AllergyIodine: nausea and vomiting - AllergyShellfish- derived Products: Allergywheat: Allergyno[Allergies Verified] Objective: * Vitals:?Temp:96.5F, Oxygen s at %:95%, HR:72/min, BP:130/80mm Hg, Wt:204.8lbs, BMI:59.96Index, Ht: 4'1''. * Examination: ???General Examination: ?Psychiatry?Normal.?GENERAL APPEARANCE:?Well developed, well nourished, in no acute distress.?MUSCULOSKELETAL:?Normal.?HEAD:?Normocephalic, atraumatic.?EYES:?Pupils equal, round, reactive to light and accommodation, sclera non-icteric.?EARS:?Normal.?ORAL CAVITY:?Normal.?THROAT:?Clear.?OROPHARYNX?Normal.?SINUSES?Normal.?NECK/THYROID:?Neck supple, full range of motion, no cervical lymphadenopathy.?SKIN:?Warm and dry, no suspicious lesions.?HEART:?S1, S2 normal, grade 1/6 systolic murmur at right sternal border.?LUNGS:?normal.?BREASTS:?__.?ABDOMEN:?Soft, nontender, nondistended, bowel sounds present, normal.?EXTREMITIES:?Normal.?PERIPHERAL PULSES:?Normal.?NEUROLOGIC:?Nonfocal,? appropriate?motor strength normal upper and lower extremities, sensory exam intact.?FEMALE GENITOURINARY:?__.?MALE GENITOURINARY:?__.?PODIATRIC:?Normal.?Senior Engineering Team Leader? .? Assessment: * Assessment: 1.?Slurred speech - R47.81?? ?2.?Cough, unspecified - R05.9???3.?Post COVID-19 condition, unspecified - U09.9??? 74-yrs? with history of post coitus syndrome, hypertension, ST elevation [place] status post stent, chronic cough tracheomalacia is here today for multiple complaints including intermittent blurry vision left-sided weakness and unsteady gait and fatigue reported slurred speech and left arm weakness.? Patient is currently speaking very clearly making full sentences.? is also present, there is no evidence of any neurological deficit. Patient states that it comes and goes, she feels weak and dizzy after she takes her antihypertensives.? She is also complaining of ongoing cough. Patient is on metoprolol 50 mg daily and also losartan 25 mg daily reviewed her blood pressure recording at home she drops her blood pressure from 120s and 130 systolically to 101 and 102, patient reports she started feeling dizzy at that time.? She be symptomatic with low blood pressure.? With ongoing cough and low blood pressure as patient is symptomatic we will stop losartan.? We have recommended encourage by mouth fluid intake. We also discussed about MRI of brain although she is on an appropriate treatment for stroke which includes aspirin and Plavix I spoke to patient's daughter and .? Patient states she cannot tolerate MRI and cannot lay down.? I will order an MRI of the brain have recommended that she takes Benadryl along with a small dose of Ativan to try the imaging however patient does not feel like she can undergo the testing.? She also has upcoming CT of the chest per Dr. Amos and she is already worried about her being laying down. Overall fatigue weakness, her neurological exam is unremarkable.? Pronator test is negative she is alert and oriented.? Most likely post coital syndrome as the symptoms has been present since last year. We would recommend physical therapy and VNA services for blood pressure check and gait stability Lower extremity edema mostly dependent edema sitting in the chair the whole day we recommend out of bed ambulation we also recommended Nam wrap's and elevation History of ST elevation [place] status post stent placement mid RCA DS, left main is 45% stenosis but medically treated.? Patient was seen by Dr. Santos she will follow up as an outpatient with [facility] in 4-6 weeks.? Continue with aspirin, continue Plavix 75 [place] daily atorvastatin 80 mg daily and metoprolol? Lung nodulet? followed by Dr. Amos pulmonology in [place] .Thyroid nodule she has history of subclinical hypothyroidism,? multiple questions were answered today, spoke to patient's and daughter at length Plan: * Treatment: 2.?Cough, unspecified? Start diphenhydrAMINE HCl Capsule, 25 MG, 1 capsule at bedtime as needed, Orally, Once a day, 2 days, 2 Capsule, Refills 0, Notes: use before going for MRI.?? * Procedure Codes:?3079F DIAST BP 80-89 MM [id number] SYST BP GE 130 - 139MM HG * * Sign off status: Completed true * Provider:?Georgi Tierney, Date:?10/29/2024 Generated for Corbin johnston/Senia/Vanessaitting on:?10/30/2024 12:08 PM EST History and Physical Notes * HPI (History of Present Illness) Category Sub-Category Detail Notes Category Not es Internal Medicine Yaquelin is 74 years old lady with acid reflux, arthritis and diverticulitis, hypertension, hiatal hernia, GERD, post covert syndrome, recent diagnosis of tracheomalacia , ST elevation [place] in August 2024 and was treated at [facility]. patient received a mid RCA DS also the left main was 45% stenosed however he was medically managed. patient is here today with her complaining of feeling weak and dizzy and at times she feels her left is weaker she has multiple other complaints including blurry vision which is intermittent, difficulty walking. She also is complaining of lower extremity edema. patient also has a chronic cough, was seen by pulmonology and recommended to start PPI twice a day she will also be having a pulmonology outpatient follow-up. Patient was seen by speech therapy and also a barium swallow was done which was unremarkable but there was some question of tracheomalacia. patient is supposed to be following with pulmonology Dr. Amos for lung mass and needs a CT of the chest however due to persistent cough and not able to lay down imaging could not have been completed. I have a long discussion with the patient and her daughter over the phone about the multiple complaints. We also reviewed her blood pressure recordings at home showing that her blood pressure drops from 1 2130 systolically 202 after medications in the morning she takes metoprolol and losartan. Patient reports that she feels dizzy later in the day. She also has blurry vision at times. She is also telling me that the symptoms of weakness and gait instability is since May 2024 after her cope with infection. Examination Category Sub-Category Detail Notes Category Not es General Examination GENERAL APPEARANCE: Well dev eloped, well nourished, in no acute distress HEAD: Normocephalic, atrau matic EYES: Pupils equal, round, reactive to light and accommodation, sclera non-icteric EARS: Normal THROAT: Clear NECK/THYROID: Neck supple, full ra nge of motion, no cervical lymphadenopathy HEART: S1, S2 normal, grade 1/6 systolic murmur at right sternal border LUNGS: normal ABDOMEN: Soft, nontender, non distended, bowel sounds present, normal NEUROLOGIC: Nonfocal, appropriat e motor strength normal upper and lower extremities, sensory exam intact SKIN: Warm and dry, no nuzhat picious lesions EXTREMITIES: Normal PERIPHERAL PULSES: Normal BREASTS: __ MUSCULOSKELETAL: Normal MALE GENITOURINARY: __ FEMALE GENITOURINARY: __ ORAL CAVITY: Normal PODIATRIC: Normal Psychiatry Normal OROPHARYNX Normal SINUSES Normal Senior Engineering Team Leader
--- OUTSIDE RECORDS SUMMARY | 2024-10-30 12:09 | XMS_ITS ---
Author Organization [facility] Address [address] [place] [address] Care Team Providers Care Developer Prover Mechanical Name Role Phone LUCILA CORDERO Primary Care Provider [phone] REASON FOR VISIT FYI for the appointment Encounters Encounter Location Date Provider Diagnosis [facility] [address] [address] 10/28/2024 LUCILA CORDERO Plan Of Treatment Next Appt Details Provider Name:Georgi Tierney, 0 12/22/2024 11:30:00 AM, [address] [place] [address], [place], [address], Progress Notes * MAMTA YOUSSEFOB: 9 (74 yo F)Acc No.[id number]:10/28/2024 Patient:?JUAN YOUSSEF :1950???Age:74 Y???Sex:Female Phone: Address:[address] [facility], [place] [address] * true * Date:? Generated for Printi ng/Faventura/eTransmitting on:?10/30/2024 12:09 PM EST
--- OUTSIDE RECORDS SUMMARY | 2024-10-30 12:09 | XMS_ITS | Data Portability ---
Author Organization [place] [facility] Address [address] [facility] [address] [place] [address] Care Team Providers Care Car Spotter Name Role Phone CARA FELTON Primary Care Provider [phone] Assessment Encounter Date Assessment Date Assessment LastModified [...] . Referral speech therapy referral 2024 025 [facility], [address] [place] [address], [address], 11:03:59 Procedures None recorded . Surgeries None recorded . Imaging None recorded . Medication Orders None recorded . Patient TargetsNo targets recorded. Patient InstructionsNo instructions recorded. Reason for Referral Referring Physician: Chris bui, Otolaryngology, Encounter Date: 09/30/2024 Results Created Date Observation Date Name Description Value Unit Range Abnormal Flag Note LastModifiedBy Organization Detail LastModifiedTime 02/12/20 24 audio gram No observ ation record ed. BARCODE Not Available 2023 12:37:41 Result Notes None recorded. Problems Name Problem SNOMED Code Status Onset Date Resolution Date Notes Provider Name and Address Organization Details Recorded Time Sensorineural hearing loss of bilateral ears 473780932 Active 2023 ELIANA LORENZANA [address] [facility],[address] [place], [address], [place] - [facility] 4 10:35:36 Unsteady when walking 70021685 Active 2023 VANDANA REHMAN MD [address] [facility],[place] [address], [place], [address], [place] - [facility] 4 11:15:19 Chronic cough 60504341 Active 2024 CHRIS NUNEZ MD [address] [facility],[place] [address], [place], [address], [place] - [facility] 5 20:24:15 Vocal nodules in adults 53845049 Active 2024 CHRIS NUNEZ MD [address] [facility],[place] [address], [place], [address], [place] - [facility] 5 15:44:27 Tracheomalacia 62820611 Active 2024 CHRIS NUNEZ MD [address] [facility],[place] [address], [place], [address], [place] - [facility] 15:44:41 Problem Notes None recorded. Procedures Surgical History Date Name Laterality Status Provider Name and Address Organization Details Recorded Time 09/30/19 25 Fiberoptic Laryngoscopy (Comprehensive) completed CHRIS WARREN MD [address], [address], [place] - [facility] 09/30/2024 15:44:06 02/06/20 24 Comp Audio with Tymps (59032 & 07896) completed ELIANA LORENZANA [address] [facility],[place] [address], [place], [address], [place] - [facility] 02/06/2024 10:34:07 total knee replacement completed Brianna Daniels [place] - [facility] 02/06/2024 10:37:01 procedure on shoulder completed Brianna Daniels [place] - [facility] 02/06/2024 10:37:09 complete repair of rotator cuff completed Brianna Daniels [place] [facility] 02/06/2024 10:37:40 procedure on elbow completed Brianna Daniels [facility] 02/06/2024 10:38:13 Imaging Results Imaging Date Name Status LastModified by Organiz ation Details LastModified Time 02/12/2024 audiogram completed BARCODE Information no t available 02/12/2024 12:37:41 Procedure Notes None recorded. Medical Equipment None Reported. Allergies Allergen ID Allergen Name Allergen Category Reaction Reaction Severity Criticality Documentation Date Start Date Code Code System Note Provider Name and Address Organization Details Recorded Time 059138 Product containin g penicilli n (product) medicatio n Not available Not available Not available 02/06/2024 87099 8001 SNOMED Brianna pennington [place] [facility] 4 10:28:43 606038 Substance with sulfonami de structure and antibacte rial mechanism of action (substanc e) medicatio n Not available Not available Not available 02/06/2024 78748 8003 SNOMED Brianna pennington [place] [facility] 4 10:28:50 588164 wheat preparati on food,medi cation Not available Not available Not available 02/06/2024 51002 52 RxNorm Brianna pennington [place] [facility] 4 10:28:58 456489 soy environme nt,food,m edication Not available Not available Not available 02/06/2024 81267 UNK Brianna pennington [place] [facility] 4 10:29:04 923595 shellfish derived food,medi cation Not available Not available Not available 02/06/2024 57251 UNK Brianna pennington [place] [facility] 4 10:29:41 009213 iodine medicatio n Not available Not available Not available 09/30/2024 5933 RxNorm Brianna pennington [place] [facility] 5 15:46:41 338252 aspirin medicatio n Not available Not available Not available 09/30/2024 1191 RxNorm Brianna pennington [place] [facility] 15:46:48 Medications Name Sig Start Date Stop [...] History Nothing Reported. Medical History Condition Response Arthritis Y GERD/Reflux Y Heart Attack ([place]) Y Hyperlipidemia Y Thyroid Problems Y Hypertension Y Gynecological HistoryNo gynecological history recorded. Obstetrics History GPAL:G 0 P 0 0 0 0 Past Encounters Encounter ID Performer Location Encounter Start Date Encounter Closed Date Diagnosis/Indication Diagnosis SNOMED-CT Code Diagnosis ICD10 Code Diagnosis Note [id number] ELIANA LORENZANA [facility] [address] [address] 02/06/2024 10:09:46 02/06/2024 11:15:27 Sensorineural hearing loss of bilateral ears 012176434 H90.3 Audiologic al evaluation results:[facility] ear:{{Norm al auditory thresholds Normal sloping at Normal sloping at 2kHz to a mild to severe#}} {{ SNHL* C HL MHL }} with {{excellen t* good fa ir poor no t measurable }} speech discrimina tion.Left ear:{{Norm al auditory thresholds Normal sloping at Normal sloping at 2kHz to a mild to severe#}} {{ SNHL* C HL MHL }} with {{excellen t* good fa ir poor no t measurable }} speech discrimina tion. Tympanomet ry:Right Ear:{{Type A* Type As Type Ad Type C Type C, shallow & rounded Ty pe B Type B with large volume Cou ld not maintain a hermetic seal}}Left Ear:{{Type A Type As* Type Ad Type C Type C, shallow & rounded Ty pe B Type B with large volume Cou ld not maintain a hermetic seal}} 3000 VANDANA REHMAN MD [facility] [address] [address] 02/06/2024 10:09:46 02/06/2024 11:15:27 Unsteady when walking 63995774 R26.89 Patient referred for evaluation of dizziness , but she is actually not dizzy at all. She is unsteady while ambulatory . She is only symptomati c while standing or ambulating , she is asymptomat ic when she is sitting or laying down. We discussed how this is more likely to be a musculoske letal or neurologic al issue rather than an inner ear problem. I am referring her to [facility] for vestibular rehabilita tion therapy which may help with strengthen ing and coordinati on of the lower extremitie s. If symptoms worsen, would recommend neurology evaluation to assess for lower extremity neuropathy . Recommend strongly against the use of meclizine or other vestibular suppressan ts as this will certainly make her symptoms worse. Sensorineu ral hearing loss of bilateral ears 937936175 H90.3 Audiologic al evaluation results:[facility] ear:{{Norm al auditory thresholds Normal sloping at Normal sloping at 2kHz to a mild to severe#}} {{ SNHL* C HL MHL }} with {{excellen t* good fa ir poor no t measurable }} speech discrimina tion.Left ear:{{Norm al auditory thresholds Normal sloping at Normal sloping at 2kHz to a mild to severe#}} {{ SNHL* C HL MHL }} with {{excellen t* good fa ir poor no t measurable }} speech discrimina tion. Tympanomet ry:Right Ear:{{Type A* Type As Type Ad Type C Type C, shallow & rounded Ty pe B Type B with large volume Cou ld not maintain a hermetic seal}}Left Ear:{{Type A Type As* Type Ad Type C Type C, shallow & rounded Ty pe B Type B with large volume Cou ld not maintain a hermetic seal}} Patient is an excellent candidate to consider binaural amplificat ion. She is interested in learning more about this, so we will set her up for a hearing aid evaluation . [id number] CHRIS FREEMAN MD [facility] [address] [address] 09/30/2024 14:39:01 09/30/2024 15:53:55 Chronic cough 99005770 R05.3 Daughter reports chronic cough that was present prior to COVID but has been voice. I do not see any anatomical cause. Consider CT of sinus if sx persist. Vocal nodu les in adults 76155688 J38.2 Daughter reports voice is actually improved. There is small nodule on the right side. Speech is fluent. Daughter concerned about slurred speech Tracheomalacia 33415120 Q32.0 Sent by PCP here for management of tracheomal acia. Unfortunat clarisa this is in the purview of pulmonary or thoracic surgery. Her upper airway is normal except for the vocal nodule. Follow with Pulmonary or Thoracic if needed Health Concerns Section Related Observation LastModified by Organization Detai ls LastModified Time None Recorded Concern Status LastModified by Organization Details LastModified Time None Recorded Advance Directives Directive None Recorded Payers Encounter Date Sequence Insurance Name Policy Number Policy Ayala Covered Member ID Ayala Member ID Guarantor Name 02/06/2024 1 [facility] (MEDICARE REPLACEMENT/A DVANTAGE - HMO) [id number] Yaquelin Chavez [id number] Yaquelin Chavez 02/06/2024 1 [facility] (MEDICARE REPLACEMENT/A DVANTAGE - HMO) [id number] Yaquelin Chavez [id number] Yaquelin Chavez 09/30/2024 1 [facility] (MEDICARE REPLACEMENT/A DVANTAGE - HMO) [id number] Yaquelin Chavez [id number] Yaquelin Chavez Notes Date Note Type Note Provider Name and Address Organization Details Recorded Time 02/06/2024 text/html 73-year-old srinath aguilar who comes in today for evaluation of unsteadiness on her feet. Patient was hospitalized in August with diverticulitis. She was on 2 different antibiotics which apparently had side effects of dizziness. Ever since then, she has been feeling unsteadiness while ambulatory.. She reports that when she is walking she feels unsteady and wobbly to the point where she is now using a cane to ambulate. She finds that when she sits or lays down she is completely asymptomatic. She notes no back, hip, knee, ankle, or foot pain. No numbness or tingling in her feet. She has noticed some lower extremity swelling lately. VANDANA REHMAN MD [address] [place] [address],[address], [address], [facility] - [facility] 02/06/2024 11:18:17 09/30/2024 text/html cough since COVI D 04/2024. [...] CT scan showed tracheomalacia. CHRIS WARREN MD [address] [facility],[place] [address], [place], [address], [facility] - [facility] 09/30/2024 17:13:25 OBGyn Episode No OBEpisode recorded.
--- OUTSIDE RECORDS SUMMARY | 2024-10-30 12:09 | XMS_ITS ---
Author Organization [facility] Address [address] [facility] [address] [place] [address] Care Team Providers Care Head Of Housekeeping Name Role Phone LUCILA CORDERO Primary Care Provider Georgi Tierney Unavailable [phone] Encounters Encounter Location Date Provider Diagnosis [address] [place] [address] 10/29/2024 Georgi Tierney Plan Of Treatment Next Appt Details Provider Name:Georgi Tierney, 0 12/22/2024 11:30:00 AM, [address] [facility] [address], [place], [address], Progress Notes * MAMTA YOUSSEFOB: 9 (74 yo F)Acc No.[id number]:10/29/2024 Patient:?JUAN YOUSSEF :1950???Age:74 Y???Sex:Female Phone: Address:[address] [place] [address], [place] [address] * * Date:?
== END 2024-10-30 11:44 | disposition home or self-care (01) ==
PROVIDERS: PCP Hospitalist; Visit Provider Hospitalist
DX: R05.3 Chronic cough (principal); U09.9 Post COVID-19 condition, unspecified; J39.8 Other specified diseases of upper respiratory tract; R91.1 Solitary pulmonary nodule; G47.33 Obstructive sleep apnea (adult) (pediatric); T78.40XA Allergy, unspecified, initial encounter; I50.9 Heart failure, unspecified
CPT/HCPCS: 99215

== ENCOUNTER 2024-10-30 10:38 | Outpatient (REF) | payer MEDICARE, SELFPAY ==
[2024-10-30 12:14] LABS: MANUAL DIFF FLAG NO
[2024-10-30 12:41] LABS: Basophils Percent Auto 0.2 % (0-2); Eosinophils Absolute Auto 0.6 X10*3/uL (0.0-0.4); Eosinophils Percent Auto 7.1 % (0-4); Hematocrit 37.7 % (37.0-47.0); Hemoglobin 11.8 g/dl (12.0-16.0); Imm Gran Abs Auto 0.03 X10*3/uL (0.00-0.03); Imm Gran Pct Auto 0.4 % (0.0-0.4); Lymphocytes Absolute Auto 1.6 X10*3/uL (1.2-4.9); Lymphocytes Percent Auto 19.8 % (20-40); Mean Corpuscular HGB Conc 31.3 g/dl (31.0-35.0); Mean Corpuscular Volume 79.9 fL (80.0-98.0); Mean Platelet Volume 12.7 fL (9.4-12.3); Monocytes Absolute Auto 0.5 X10*3/uL (0.1-1.2); Monocytes Percent Auto 6.1 % (2-11); Neutrophils Absolute Auto 5.5 x10*3/uL (2.0-8.3); Neutrophils Percent Auto 66.4 % (45-73); Platelet Count 220 X10*3/uL (160-400); Red Blood Count 4.72 X10*6/uL (4.20-5.50); Red Cell Distribution Width 15.4 % (11.0-16.0); White Blood Count 8.3 X10*3/uL (4.8-10.8)
[2024-10-30 13:08] LABS: Anion Gap 13 (12-20); Blood Urea Nitrogen 10 mg/dL (9-16); Calcium 9.5 mg/dL (8.4-10.2); Carbon Dioxide 24 mmol/L (22-29); Chloride 110 mmol/L (96-108); Estimated Glomerular Filt Rate > 60; Glucose Random 71 mg/dL (60-115); Potassium 4.1 mmol/L (3.3-5.1); Sodium 143 mmol/L (135-145)
[2024-10-30 13:13] LABS: Troponin-I High Sensitivity 5.8 ng/L (<3.5-17.0)
[2024-10-30 13:17] LABS: B Type Natriuretic Peptide 165 pg/mL (<100)
[2024-10-30 13:21] LABS: Erythrocyte Sedimentation Rate 19 MM/HR (0-20)
--- OUTSIDE RECORDS SUMMARY | 2024-10-30 14:02 | XMS_ITS | Clinical Summary ---
Author Organization [facility] Address [address] [place] [address] Care Team Providers Care Needle Grinder Name Role Phone Valentin Levi MD Primary Care Provider [phone] Surgical History Surgery Date Site/Laterality Comments TOTAL [...] and Pulmonary Rehabilitation - [facility] [address] [place] [address] Health Maintenance Due Date Last Done [...] classified as having normal bone density. [facility] Department of Internal Medicine recommends using National [...] classified as having normal bone density. [facility] Department of Internal Medicine recommendsusing National Osteoporosis [...] Maintenance Insurance [employer] MEDICARE Care Teams Needle Grinder Relationship Specialty Start Date End Date Valentin Levi MD [address] [place] [address] PCP - General 05/26/24
--- OUTSIDE RECORDS SUMMARY | 2024-10-30 14:02 | XMS_ITS | Patient Health Record ---
Author Organization [facility] Address [address] [place] [address] Care Team Providers Care Program Director Air Talent Name Role Phone LUCILA CORDERO Primary Care Provider Reid Tierneypat Unavailable [phone] GaneshsindyKaity loganmauriceanthony Unavailable [phone] Allergies Allergen (clinical drug ingredient) Drug/Non Drug [...] (substance) Sulfa Antibiotics hives Drug Allergy Active Results Component Value Reference Range Notes Basic Metabolic Panel ([id number] Reviewed date:07/07/2024 03:16:45 PM Interpretation: Performing Lab:[facility], [address] [place] [address], Phone - [phone], Director - Maame Notes/Report: Glucose 97 70-99 mg/dL BUN 11 8-27 mg/dL Creatinine 1.02 0.57-1.00 mg/dL eGFR 57 >59 mL/min/1.73 BUN/Creatinine Ratio 11 12-28 Sodium 142 134-144 mmol/L Potassium 4.4 3.5-5.2 mmol/L Chloride 104 96-106 mmol/L Carbon Dioxide, Total 19 20-29 mmol/L TSH+Free [id number] Reviewed date:05/02/2024 01:14:51 AM Interpretation: Performing Lab:[facility] [place], [address], [address], [place], Phone - [phone], Director - [facility] Notes/Report: TSH 0.526 0.450-4.500 uIU/mL T4,Free(Direct) 1.17 0.82-1.77 ng/dL Viral Hepatitis HBV, HCV-144 025 Reviewed date:05/02/2024 01:15:01 AM Interpretation: Performing Lab:[facility], [address], [address], [place], Phone - [phone], Director - [facility] Notes/Report: HBsAg Screen Negative Negative Hep B Surface Ab, Qual TNP Duplicate procedure ordered. Non Reactive: Not immune to HBV infection. Equivocal: Unable to determine if anti-HBs is present at levels consistent with immunity. Reactive: Anti-HBs concentration detected at greater than 10 mIU/mL. Individual is considered to be immune to infection with HBV. Hep B Core Ab, Tot Negative Negative HCV Ab Non Reactive Non Reactive Interpretation: Not infected with HCV unless early or acute infection is suspected (which may be delayed in an immunocompromised individual), or other evidence exists to indicate HCV infection. Hep B Core Ab, IgM-[id number] Reviewed date:05/02/2024 01:15:18 AM Interpretation: Performing Lab:[facility], [address], [address], [place], Phone - [phone], Director - [facility] Notes/Report: Hep B Core Ab, IgM Negative Negative Hep Be Ag-[id number] Reviewed date:05/20/2024 03:59:47 PM Interpretation: Performing Lab:[facility] [place], [address], [address], [place], Phone - [phone], Director - [facility] Notes/Report: Hep Be Ag Negative Negative Hepatitis B Surf Ab Quant-00 6530 Reviewed date:05/20/2024 03:59:30 PM Interpretation: Performing Lab:[facility] [place], [address], [address], [place], Phone - [phone], Director - [facility] Notes/Report: Hepatitis B Surf Ab Quant <3.5 Immunity>10 mIU /mL Status of Immunity Anti-HBs Level Inconsistent with Immunity 0.0 - 10.0 Consistent with Immunity >10.0 ALT (SGPT)-[id number] Reviewed date:05/02/2024 01:15:35 AM Interpretation: Performing Lab:[facility] [place], [address], [address], [place], Phone - [phone], Director - [facility] Notes/Report: ALT (SGPT) 20 0-32 IU/L AST (SGOT)-[id number] Reviewed date:05/02/2024 01:15:26 AM Interpretation: Performing Lab:[facility] [place], [address], [address], [place], Phone - [phone], Director - [facility] Notes/Report: AST (SGOT) 17 0-40 IU/L Thyroid Panel-[id number] Reviewed date:05/02/2024 01:14:42 AM Interpretation: Performing Lab:[facility], [address], [address], [place], Phone - [phone], Director - [facility] Notes/Report: Thyroxine (T4) 7.8 4.5-12.0 ug/dL T3 Uptake 24 24-39 % Free Thyroxine Index 1.9 1.2-4.9 Reason For Referral Reason Evaluation and manag ement Diagnosis 1 Gastro-esophageal re flux disease without esophagitis (K21.9) Referral Organization [facility] Referring Provider First Name LUCILA Referring Provider Last Name FEDERICA Referring Provider Speciality Internal edicine Referred Provider Specialty Gastroentero logy General Notes Referral faxed to [facility] Gastroenterology - Dept will call patient for scheduling.Rakan Latraya 04/01/2024 08:11:55 AM > Referral Priority Routine Reason Evaluation and manag ement Diagnosis 1 Unsteadiness on feet (R26.81) Referral Organization [facility] Referring Provider First Name LUCILA Referring Provider Last Name FEDERICA Referring Provider Speciality Internal edicine Referred Provider Specialty Physical The rapist General Notes Referral faxed to [facility] Physical Therapy in [place]- Dept will call patient for scheduling.Rakan Latraya 04/01/2024 08:13:41 AM > Referral Priority Routine Reason Please evaluate and treat Diagnosis 1 Unsteadiness on feet (R26.81) Referral Organization [facility] Referring Provider First Name LUCILA Referring Provider Last Name [facility] Referring Provider Speciality Internal edicine Referred Provider Specialty Physical The rapist General Notes Referral faxed to [facility] at [phone] as requested by the patient. Please contact the patient to schedule an appt.Isabelle Kayla 04/01/2024 08:30:16 AM > Referral Priority Routine Reason cough post covid- Diagnosis 1 Cough (R05.9) Referral Organization [facility] Referring Provider First Name Sanjiv Referring Provider Last Name Onur Referred Provider Specialty Pulmonology General Notes faxed to [facility] Yvonne Young Brittney 04/29/2024 03:37:25 PM > Referral Priority Routine Reason Evaluation and manag ement Diagnosis 1 Pain in right wrist (M25.531) Diagnosis 2 Pain in left wrist ( M25.532) Referral Organization [facility] Referring Provider First Name LUCILA Referring Provider Last Name [facility] Referring Provider Speciality [facility] Referred Provider Specialty Occupational Therapy General Notes Referral sent to [facility] in [place]- Office will call patient for scheduling.Rakan Latraya 05/14/2024 12:24:23 PM > Referral Priority Routine Reason Evaluation and manag ement Diagnosis 1 Solitary pulmonary n odule (R91.1) Referral Organization [facility] Referring Provider First Name LUCILA Referring Provider Last Name FEDERICA Referring Provider Speciality Internal edicine Referred Provider Specialty Pulmonary Di seases General Notes URGENT Referral faxe d to [facility] Pulmonary. I spoke with Lana who states they are not contracted with the patient's insurance. Isabelle Kayla 05/18/2024 02:16:36 PM >, Urgent referral faxed to [facility]. They are closed today so I could not call to schedule an appt. Isabelle Kayla 05/18/2024 02:23:13 PM > Referral Priority Urgent Reason THYROID NODULE - CT done at [facility] Diagnosis 1 Nontoxic single thyr oid nodule (E04.1) Referral Organization [facility] Referring Provider First Name LUCILA Referring Provider Last Name [facility] Referring Provider Speciality Internal edformerly [facility] Referred Provider Specialty Intervention al Radiology General Notes Referral sent to [facility] IR - Office will call patient for scheduling.Rakan Latraya 05/21/2024 10:48:26 AM > Referral Priority Routine Reason Evaluation and manag ement Diagnosis 1 Pain in unspecified hand (M79.643) Referral Organization [facility] Referring Provider First Name GAYTAN Referring Provider Last Name CONSUELO Referring Provider Speciality Internal edicine Referred Provider Specialty Hand Surgery General Notes Referral faxed to [facility] - Office will call patient for scheduling., Maday Bledsoe 06/23/2024 01:03:08 PM > Referral Priority Routine Reason please evaluate and treat Diagnosis 1 Slurred speech (R47. 81) Referral Organization [facility] Referring Provider First Name Sanjiv Referring Provider Last Name Onur Referred Provider Specialty Speech and l samanta therapist Clinical Notes Faxed to [facility], they will contact ptDavis Brittney 07/02/2024 09:38:23 AM > Referral Priority Routine Reason Please evaluate and treat Diagnosis 1 Solitary pulmonary n odule (R91.1) Referral Organization [facility] Referring Provider First Name Sanjiv Referring Provider Last Name Onur Referred Provider Specialty Pulmonary Di seases General Notes Referral faxed to [facility]. The office will call the patient to schedule., Donna Walton 07/07/2024 03:32:16 PM > Referral Priority Urgent Reason Dr. 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 Please contact the patient to schedule. Referral Priority Routine Medications Medication SIG (Take, Route, Frequency, Duration) Notes Start Date End Date Status Breo Ellipta 100-25 MCG/ACT 1 puff Inhalation Once a day for 30 days 05/18/2024 Not-Taking diphenhydrAMINE HCl 25 MG 1 capsule at b edtime as needed Orally Once a day for 2 days 10/29/2024 Active Delsym Cgh/Chest Pineda DM Child 5-100 MG/5ML as directed Orally Not -Taking Albuterol Sulfate HFA 108 (90 Base) MCG/ACT 1 puff as needed Inhalation every 4 hrs for 30 days Active predniSONE 20 MG 1 tablet Orally Once a day for 7 days 04/29/2024 Not-Taking Robitussin Cold Cough+ Chest prn Active guaiFENesin-Codeine 200-8 MG/5ML 5 mL as needed Orally every 6 hrs for 14 days 04/29/2024 Not-Taking Benzonatate 100 MG 1 capsule as needed Orally Three times a day for 7 days 03/31/2024 Active Azithromycin 250 MG as directed Orally 2 tablets on the first day, then 1 tablet daily for 5 days 04/29/2024 Not-Taking Breo Ellipta 200-25 MCG/ACT INHALE 1 PUFF INTO THE LUNGS EVERY DAY for 30 Active Fluticasone Furoate-Vilanterol 100-25 MCG/ACT 1 puff Inhalation Once a day for 30 days 05/15/2024 Not-Taking Nystatin 684512 UNIT/GM 1 application Externally Twice a day for 30 days 09/09/2024 Active predniSONE 10 MG take 4 tablets a day for 3 days, then 3 tablets a day for 3 days, then 2 tablets a day for 3 days, then 1 tablet a day for 3 days Orally Once a day for 12 days 05/15/2024 Not-Taking Benzonatate 200 MG 1 capsule Orally Thr ee times a day for 30 days 09/09/2024 Active Symbicort 80-4.5 MCG/ACT 1 puff as neede d Inhalation Twice a day for 30 days 05/21/2024 Not-Taking Metoprolol Succinate ER 50 MG 1 tablet Orally Once a day Active Pantoprazole Sodium 40 MG 1 tablet 1/2 t o 1 hour before morning meal Orally twice a day for 30 days Active Clopidogrel Bisulfate 75 MG 1 tablet Orally Once a day Active Aspirin 81 MG 1 tablet Orally Once a day for 30 days Active Atorvastatin Calcium 80 MG 1 tablet Oral ly Once a day Active Omeprazole 20 MG 1 capsule 30 minutes before morning meal Orally Once a day for 90 days Not-Taking Trelegy Ellipta 200-62.5-25 MCG/ACT 1 puff Inhalation Once a day for 30 days 07/22/2024 Active Social History Tobacco Use: Social History Observation Description Date Details (start date - stop date) Never Smoker NA - NA Tobacco Use/Smoking Question Answer Notes Are you a nonsmoker Problems Problem Type SNOMED Code ICD Code Onset Dates Problem Status W/U Status Risk Notes Problem Non-toxic single thyroid nodule (383462271) Nontoxic single thyroid nodule (E04.1) Active confirmed Problem Non-toxic multinodular goiter (22556476) Nontoxic multinodular goiter (E04.2) Active confirmed Problem Mixed hyperlipidemia (383239893) Mixed hyperlipidemia (E78.2) Active confirmed Problem Essential hypertension (73199409) Essential (primary) hypertension (I10) Active confirmed Problem Gastro-esophageal reflux disease without esophagitis (831695271) Gastro-esophageal reflux disease without esophagitis (K21.9) Active confirmed Problem Diaphragmatic hernia (93586903) Diaphragmatic hernia without obstruction or gangrene (K44.9) Active confirmed Problem Diverticulitis of colon (546251481) Diverticulitis of large intestine without perforation or abscess without bleeding (K57.32) Active confirmed Problem Fatty liver (196513482) Fatty (change of) liver, not elsewhere classified (K76.0) Active confirmed Problem Osteoarthritis (212927546) Polyosteoarthriti s, unspecified (M15.9) Active confirmed Problem Congenital tracheomalacia (71928976) 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) Active confirmed Problem Abnormal gait (51984412) Unsteadiness on feet (R26.81) Active confirmed Problem Abnormal gait (25702889) Other abnormalities of gait and mobility (R26.89) Active confirmed Problem Solitary pulmonary nodule (812738127) Solitary pulmonary nodule (R91.1) Active confirmed Problem Imaging result abnormal (410519822) Abnormal findings on diagnostic imaging of other specified body structures (R93.89) Active confirmed Problem 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) (6957566653) Snlf-XHIOZ-43 condition (B94.8) Active confirmed Problem Chronic vrrx-QPFVP-46 syndrome (disorder) (1592108226) Dzzx-TVLGP-49 syndrome (B94.8) Active confirmed Problem 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) (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) Post COVID-19 condition, 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) Active confirmed Vital Signs Heart Rate 72 /min 10/29/2024 Temperature 96.5 degrees Fahrenheit 10/29/2024 Blood pressure diastolic 80 mm Hg 10/29/2024 Oximetry 95 % 10/29/2024 Height 4'1'' in 10/29/2024 Blood pressure systolic 130 mm Hg 10/29/2024 Weight 204.8 lbs 10/29/2024 BMI 59.96 kg/m2 10/29/2024 Encounters Encounter Location Date Provider Diagnosis [address] [address] 03/31/2024 LUCILA CORDERO Gastro-esophageal reflux disease without esophagitis K21.9 ; Mixed hyperlipidemia E78.2 ; Polyosteoarthritis, unspecified M15.9 ; Diverticulitis of large intestine without perforation or abscess without bleeding K57.32 and Cough, unspecified R05.[address] [address] 04/29/2024 [facility] Hospital discharge follow-up Z09 ; Abnormal findings on diagnostic imaging of other specified body structures R93.89 ; Cough R05.9 ; Nontoxic multinodular goiter E04.2 ; Fatty (change of) liver, not elsewhere classified K76.0 and Diaphragmatic hernia without obstruction or gangrene K44.[address] [address] 05/15/2024 LUCILA CORDERO Jzzp-HDBHF-40 syndro me B94.8 ; Cough, unspecified R05.9 ; Solitary pulmonary nodule R91.1 ; Nontoxic single thyroid nodule E04.1 ; Other abnormalities of gait and mobility R26.89 and Pain in right wrist M25.[address] [address] 06/30/2024 [facility] Solitary pulmonary nodule R91.1 ; Nontoxic single thyroid nodule E04.1 ; Other abnormalities of gait and mobility R26.89 ; Pain in right wrist M25.531 ; Slurred speech R47.81 ; Edema, unspecified R60.9 ; Essential (primary) hypertension I10 and Gastro-esophageal reflux disease without esophagitis K21.[address] [address] 07/07/2024 [facility] Essential (primary) hypertension I10 ; Cough R05.9 and Gastro-esophageal reflux disease without esophagitis K21.9 [facility] [address] [place] [address] 07/22/2024 Ghadeer Mazloum Essential (primary) hypertension I10 and Cough, unspecified R05.9 [facility] [address] [place] [address] 09/03/2024 [facility] Hospital discharge follow-up Z09 [facility] [address] [place] [address] 10/29/2024 [facility] Slurred speech R47.8 1 ; Cough, unspecified R05.9 and Post COVID-19 condition, unspecified U09.9 [facility] [address] [place] [address] 10/29/2024 [facility] [address] [place] [address] 03/31/2024 GAYTANZAINAB CORDERO Cough, unspecified R05.9 [facility] [address] [place] [address] 04/01/2024 [facility] [address] [place] [address] 04/17/2024 [facility] [address] [place] [address] 04/28/2024 Sanjiv Wolfeum [facility] [address] [place] [address] 05/11/2024 [facility] [address] [place] [address] 05/15/[address] [place] [address] 05/20/2024 Sanjiv Mohr Other specified abnormal immunological findings in serum R76.8 [facility] [address] [place] [address] 06/22/2024 [facility] [address] [place] [address] 07/03/2024 [facility] [address] [place] [address] 07/07/2024 Ghadeer Mazloum Nontoxic multinodula r goiter E04.2 [facility] [address] [place] [address] 07/09/2024 Ghadeer Mazloum Nontoxic multinodula r goiter E04.2 [facility] [address] [place] [address] 07/13/2024 [facility] [address] [place] [address] 07/14/2024 [facility] [address] [place] [address] 08/27/2024 [facility] [address] [place] [address] 08/28/2024 [facility] [address] [place] [address] 09/09/2024 [facility] [address] [place] [address] 09/16/2024 [facility] [address] [place] [address] 09/24/2024 [facility] [address] [place] [address] 10/23/2024 [facility] [address] [place] [address] 10/28/2024 [facility] [address] [place] [address] 10/28/2024 [facility] [address] [place] [address] 05/01/2024 [facility] [address] [place] [address] 05/05/2024 [facility] [address] [place] [address] 05/16/2024 [facility] [address] [place] [address] 05/18/2024 GAYTAN L Cough R05.9 [facility] [address] [place] [address] 05/20/2024 [facility] [address] [place] [address] 05/21/2024 [facility] [address] [place] [address] 05/21/2024 Sanjiv Mohr Srqa-QGPIL-92 condit ion B94.8 [facility] [address] [place] [address] 06/09/2024 [facility] [address] [place] [address] 06/24/2024 [facility] [address] [place] [address] 07/02/2024 [facility] [address] [place] [address] 07/07/2024 [facility] [address] [place] [address] 07/10/2024 Ghadeer Ganeshloum [facility] [address] [place] [address] 07/16/2024 [facility] [address] [place] [address] 07/23/2024 GAYTAN GUL Cough R05.9 and Gastro-esophageal reflux disease without esophagitis K21.9 [facility] [address] [place] [address] 07/24/2024 [facility] [address] [place] [address] 08/04/2024 GAYTAN GUL Essential (primary) hypertension I10 [facility] [address] [place] [address] 08/05/2024 GAYTAN GUL Essential (primary) hypertension I10 [facility] [address] [place] [address] 08/14/2024 [facility] [address] [place] [address] 08/14/2024 [facility] Cough R05.9 [facility] [address] [place] [address] 08/16/2024 [facility] [address] [place] [address] 09/04/2024 [facility] [address] [place] [address] 09/08/2024 [facility] [address] [place] [address] 09/09/2024 [facility] [address] [place] [address] 09/16/2024 Sanjiv Mohr [facility] [address] [place] [address] 09/18/2024 [facility] [address] [place] [address] 09/25/2024 [facility] [address] [place] [address] 09/25/2024 [facility] [address] [place] [address] 10/23/2024 LUCILA CORDERO Assessments Encounter Date Diagnosis (ICD Code) Assessment Notes Treatment Notes Treatment Clinical Notes Section Notes 03/31/2024 Mixed hyperlipidemia (ICD-10 - E78.2) Mrs. Peña is a 73-year-old lady with GERD, history of diverticulitis and arthritis of bilateral hands/thumb here to establish care. Plan is as follows: Hyperlipidemia. Last lipid panel was running high. Suggested dietary modifications. Recheck lipid panel. GERD. Stable on Omeprazole 20 MG. Referred to GI for further management and evaluation and for possible endoscopy. Gait instability. Referred to Physical therapy. Cough. Discussed it may take some time for symptoms to clear. Start Benzonatate 100 MG TID PRN for 7 days along with Fluticasone nasal spray. Advised appropriate hydration. Screening blood work before next appointment. General health concerns discussed with patient. Scribe services used to formulate this note under HIPAA compliance and under [place] law mandated for scribe services. Patient aware of service. Verbal consent and written consent taken from the patient. Patient understands and verbalizes understanding of the scribes services and all questions answered regarding scribes services. Patient agrees to use of scribes services. 03/31/2024 Gastro-esophageal reflux disease without esophagitis (ICD-10 - K21.9) Mrs. Peña is a 73-year-old lady with GERD, history of diverticulitis and arthritis of bilateral hands/thumb here to establish care. Plan is as follows: Hyperlipidemia. Last lipid panel was running high. Suggested dietary modifications. Recheck lipid panel. GERD. Stable on Omeprazole 20 MG. Referred to GI for further management and evaluation and for possible endoscopy. Gait instability. Referred to Physical therapy. Cough. Discussed it may take some time for symptoms to clear. Start Benzonatate 100 MG TID PRN for 7 days along with Fluticasone nasal spray. Advised appropriate hydration. Screening blood work before next appointment. General health concerns discussed with patient. Scribe services used to formulate this note under HIPAA compliance and under [place] law mandated for scribe services. Patient aware of service. Verbal consent and written consent taken from the patient. Patient understands and verbalizes understanding of the scribes services and all questions answered regarding scribes services. Patient agrees to use of scribes services. 04/29/2024 Abnormal findings on diagnostic imaging of other specified body structures (ICD-10 - R93.89) Mrs. Peña is a 73-year-old lady with GERD, history of diverticulitis and arthritis of bilateral hands/thumb here for cough post COVID and she was recently admitted to the hospital for worsening cough. Plan as follows: Abnormal CT scan, chest Cough - Incidental finding of Tubular appearing density in the RML measuring up to 1.3 cm. Per report, finding can represent a pulmonary arterial varix rather than true pulmonary nodule, also a borderline enlarged right hilar lymph node. CT with contrast is ordered. - CTA was performed in the hospital. No evidence of PE or PNA - She continues to endorse worsening cough, she is running low grade fever today. Lungs are remarkable for diminished breath sounds throughout. I ordered an X-ray to r/o PNA. I have started patient on Zpack and prednisone for cough. Resumed her on Guaifenesin-codei ne for 14 days. - Given recent COVID and lingering cough. I referred to pulmonology for possible long COVID. Multinodular Thyroid: - Incidental finding of multinodular enlarged left thyroid gland with thyroid nodules greater than 1.5 cm. U/S of thyroid is ordered along with TFT. Hepatic Steatosis: - Incidental finding on chest CT. Ordered hepatic function along with hepatitis panel. Right Diaphragmatic hernia: - Incidental finding on CT. Small hiatel hernia. I have rendered the services for this patient under direct supervision of Dr. Cordero, who did not see the patient but was available upon request 04/29/2024 Hospital discharge follow-up (ICD-10 - Z09) Mrs. Peña is a 73-year-old lady with GERD, history of diverticulitis and arthritis of bilateral hands/thumb here for cough post COVID and she was recently admitted to the hospital for worsening cough. Plan as follows: Abnormal CT scan, chest Cough - Incidental finding of Tubular appearing density in the RML measuring up to 1.3 cm. Per report, finding can represent a pulmonary arterial varix rather than true pulmonary nodule, also a borderline enlarged right hilar lymph node. CT with contrast is ordered. - CTA was performed in the hospital. No evidence of PE or PNA - She continues to endorse worsening cough, she is running low grade fever today. Lungs are remarkable for diminished breath sounds throughout. I ordered an X-ray to r/o PNA. I have started patient on Zpack and prednisone for cough. Resumed her on Guaifenesin-codei ne for 14 days. - Given recent COVID and lingering cough. I referred to pulmonology for possible long COVID. Multinodular Thyroid: - Incidental finding of multinodular enlarged left thyroid gland with thyroid nodules greater than 1.5 cm. U/S of thyroid is ordered along with TFT. Hepatic Steatosis: - Incidental finding on chest CT. Ordered hepatic function along with hepatitis panel. Right Diaphragmatic hernia: - Incidental finding on CT. Small hiatel hernia. I have rendered the services for this patient under direct supervision of Dr. Cordero, who did not see the patient but was available upon request 05/15/2024 [id number] syndrome (ICD-10 - B94.8) Yanique is 73 years old lady with acid reflux, fatty liver, mixed type edema. She was recently hospitalized at [facility] for coronavirus 19 infection. Today she complains of gait instability/sarah ce problems, persistent cough, slurring of speech, wrist pain, skin lesion on the right drake area. She also had CT of the chest in the hospital and was positive for most likely right pulmonary nodule 1.3 cm and thyroid nodule 1.5 cm. Plan is as follows Post Covid syndrome. She has persistent cough and discussed with the patient and her family that it may persist from 6 weeks to 12 weeks. She has taken a course of antibiotics and prednisone in the recent past with no improvement. Her recent chest x-ray was negative. We will give her prednisone taper and will start her on controller inhaler and she will continue albuterol inhaler as needed Pulmonary nodule. Appears to be benign-appearing nodule but patient never had previous x-rays or CT scan to compare. She will be given referral to Dr. Abebe at [facility] pulmonology Thyroid nodule. She will be sent for ultrasound guided thyroid biopsy by interventional radiology Gait instability/wrist pain. She will have home physical therapy and occupational therapy. Slurred speech. Discussed with the patient and with family that she may have vascular changes which can be better understood by doing MRI of the brain but she is not interested at this point and we will do speech therapy. Right drake lesion. At this point advised to keep the area clean and do not use any topical ointments and observe and if there is no scabbing she will inform us. Diaphragmatic hernia. Continue PPIs. Due to current global pandemic of Covid -19 this visit was conducted over telephone in line with National Social Distancing Guidelines. Data gathered during this visit by patient self-report. Patient provided verbal consent to conduct the visit by telemedicine. Patient understands that it is a billable visit. Patient located in a home setting in [facility] during this telemedicine visit. Provider located at [facility] in [place] in [facility] 05/15/2024 Cough, unspecified (ICD-10 - R05.9) Yanique is 73 years old lady with acid reflux, fatty liver, mixed type edema. She was recently hospitalized at [facility] for coronavirus 19 infection. Today she complains of gait instability/sarah ce problems, persistent cough, slurring of speech, wrist pain, skin lesion on the right drake area. She also had CT of the chest in the hospital and was positive for most likely right pulmonary nodule 1.3 cm and thyroid nodule 1.5 cm. Plan is as follows Post Covid syndrome. She has persistent cough and discussed with the patient and her family that it may persist from 6 weeks to 12 weeks. She has taken a course of antibiotics and prednisone in the recent past with no improvement. Her recent chest x-ray was negative. We will give her prednisone taper and will start her on controller inhaler and she will continue albuterol inhaler as needed Pulmonary nodule. Appears to be benign-appearing nodule but patient never had previous x-rays or CT scan to compare. She will be given referral to Dr. Abebe at [facility] pulmonology Thyroid nodule. She will be sent for ultrasound guided thyroid biopsy by interventional radiology Gait instability/wrist pain. She will have home physical therapy and occupational therapy. Slurred speech. Discussed with the patient and with family that she may have vascular changes which can be better understood by doing MRI of the brain but she is not interested at this point and we will do speech therapy. Right drake lesion. At this point advised to keep the area clean and do not use any topical ointments and observe and if there is no scabbing she will inform us. Diaphragmatic hernia. Continue PPIs. Due to current global pandemic of Covid -19 this visit was conducted over telephone in line with National Social Distancing Guidelines. Data gathered during this visit by patient self-report. Patient provided verbal consent to conduct the visit by telemedicine. Patient understands that it is a billable visit. Patient located in a home setting in [facility] during this telemedicine visit. Provider located at [facility] in [place] in [facility] 05/18/2024 Cough (ICD-10 - R05.9) 05/20/2024 Other specified abnormal immunological findings in serum (ICD-10 - R76.8) 05/21/2024 [id number] condition (ICD-10 - B94.8) 03/31/2024 Cough, unspecified (ICD-10 - R05.9) 07/23/2024 Cough (ICD-10 - R05.9) 08/04/2024 Essential (primary) hypertension (ICD-10 - I10) 08/05/2024 Essential (primary) hypertension (ICD-10 - I10) 08/14/2024 Cough (ICD-10 - R05.9) 09/03/2024 Hospital discharge follow-up (ICD-10 - Z09) 74-year-old lady with history of hypertension hyperlipidemia GERD post Kober syndrome hepatic steatosis who was admitted to [facility] on 08/16/24 for management of cough and shortness of breath she was found to have a ST elevation UT patient is here for a post hospital discharge, she was discharged on 08/23/24. ST elevation UT status post stent placement mid RCA DS, left main is 45% stenosis but medically treated. Patient was seen by Dr. Santos she will follow up as an outpatient with district cardiology in 4-6 weeks. Continue with aspirin, continue Plavix 75 [place] daily atorvastatin 80 mg daily she was also started in the hospital on metoprolol 50 mg daily. She currently does not have any chest pain or shortness of breath continue medical management. she has [facility]NA coming to the house, when she is more stable she will be going outpatient for a cardiac rehab Chronic cough could be a combination of multiple issues including tracheomalacia, post Azeem syndrome, hiatal hernia, and GERD. She was seen by speech and also had a barium swallow testing which was unremarkable. We will give an ENT referral for management of tracheomalacia. I discussed with daughter and the patient that they will be not much to offer in terms of tracheomalacia. She is also supposed to be following up with pulmonology at [facility] however the daughter told me that they are going to Dr. Amos pulmonology in [place]. Thyroid nodule she has history of subclinical hypothyroidism, in the past there was a question of a biopsy, at the time this was not followed up as patient went to the hospital and had an ST elevation UT. Currently she is on aspirin and Plavix. Since there is no acute issue with a thyroid nodule this can be biopsied at a better time when she is recovering from her cardiac rehab/recent MRI. Hyperlipidemia continue with atorvastatin 80 mg every daily. multiple questions were answered, patient and daughter had some concerns about thyroid nodule also they were concerned about this patient in the past has cognition issue and some tremors there was an MRI brain ordered but that was not done as patient had cough and could not lay straight. Again this can be done once patient is more stable cardiac aguilar. I explained to the daughter that if there was question of stroke she is on the appropriate treatment in terms of aspirin Plavix and statins 10/29/2024 Slurred speech (ICD-10 - R47.81) 74-yrs with history of post coitus syndrome, hypertension, ST elevation UT status post stent, chronic cough tracheomalacia is [...] wrap's and elevation History of ST elevation UT status post stent placement mid RCA DS, left main is 45% stenosis but medically treated. Patient was seen by Dr. Santos she will follow up as an outpatient with district cardiology in 4-6 weeks. Continue with aspirin, continue Plavix 75 [place] daily atorvastatin 80 mg daily and metoprolol Lung nodulet followed by Dr. Amos pulmonology in [place] .Thyroid nodule she has history of subclinical hypothyroidism, multiple questions were answered today, spoke to patient's and daughter at length 07/07/2024 Cough (ICD-10 - R05.9) Juan is 73 years old lady with acid reflux, arthritis and diverticulitis Is here for BP follow-up accompanied by her . Plan as follows: HTN: - BP is still running high in the office today. I will start patient on Losartan, avoided Lisinopril due to possible S/E of cough which is currently having hard time with. - Advised on reducing salt intake, hydration, exercising and weight loss. Cough: - We will refer patient again to Pulmonary to perform PFTS to r/o pulmonary diseases. However, given a clear mucus, no fever, chills, increased dyspnea on exertion and lungs are CTAB making it less concern for a flare up/infection. She had an Xray done about a week ago for the same sxs of cough, and it was unremarkable. DDx: worsening GERD, Long COVID. To r/o worsening GERD I will increase omeprazole to 40mg once daily for one week and patient will evaluate herself. If sxs persist despite increase omeprazole then that is when she will start on Breo Ellipta increased dosage and evaluate her sxs. Meanwhile, we will be awaiting pulmonary referral for PFTS - If cough persists despite current management I will consider CT of the lungs. I have rendered the services for this patient under direct supervision of Dr. Cordero, who did not see the patient but was available upon request 07/07/2024 Nontoxic multinodular goiter (ICD-10 - E04.2) 07/09/2024 Nontoxic multinodular goiter (ICD-10 - E04.2) 07/22/2024 Essential (primary) hypertension (ICD-10 - I10) Juan is 74 years old lady with acid reflux, arthritis and diverticulitis Is here for BP follow-up accompanied by her . Plan as follows Hypertension - Blood pressure on retake is within acceptable limits. Continue on losartan 25 mg. Advised cutting down on sodium intake, hydration and exercising. Cough - Previous CAT scan done at the hospital showed tubular appearing density in the right middle lobe measuring 1.3 cm with pulmonary arterial varix, enlarged right hilar lymph node. She is currently on albuterol inhaler, nebulizer solution, and inhaled corticosteroid high dose. She is following up with Dr. Amos who ordered PFTs and sleep study. I have rendered the services for this patient under direct supervision of Dr. Cordero, who did not see the patient but was available upon request 06/30/2024 Solitary pulmonary nodule (ICD-10 - R91.1) Yanique is 74 years old lady with acid reflux, fatty liver, mixed type edema is here for follow-up. She was recently hospitalized at [facility] for coronavirus 19 infection. Today she complains of gait instability/sarah ce problems, persistent cough, slurring of speech, wrist pain, skin lesion on the right drake area. She also had CT of the chest in the hospital and was positive for most likely right pulmonary nodule 1.3 cm and thyroid nodule 1.5 cm. Plan is as follows Pulmonary nodule. -Appears to be benign-appearing nodule but patient never had previous x-rays or CT scan to compare. She will be given referral to [facility] pulmonology Thyroid nodule. - Incidental finding of 1.5cm. She has a referral to IR for ultrasound guided thyroid biopsy by interventional radiology, and we have also referred her before for U/S. TSH was done in April and it was WNL. Gait instability/wrist pain. - She will has PT. She did notice improvement. She uses the walker - She also has a referral to hand surgeon for wrist pain. Slurred speech. - MRI is ordered. We will also send a referral to speech therapy. Edema; - STates that her face is puffy, and her legs are swollen. PE is remarkable for 2+ pitting edema otherwise lungs are CTAB. Possible due to recent prednisone with taper. I will also check for BMP and CXR to r/o abnormalities. - Advised on hydration, exercising and elevating the legs. Can also use compression stockings. HTN: - Blood pressure is elevated on repeat. No history of elevated BP. At home, it is usually normal. She was recently on prednisone taper. We will check BP in one week. Advised patient on Continuing to Monitor Blood pressure at home, reduce salt intake, exercise and weight loss. Diaphragmatic hernia. -Continue PPIs. I have rendered the services for this patient under direct supervision of Dr. Cordero, who did not see the patient but was available upon request 07/07/2024 Essential (primary) hypertension (ICD-10 - I10) Juan is 73 years old lady with acid reflux, arthritis and diverticulitis Is here for BP follow-up accompanied by her . Plan as follows: HTN: - BP is still running high in the office today. I will start patient on Losartan, avoided Lisinopril due to possible S/E of cough which is currently having hard time with. - Advised on reducing salt intake, hydration, exercising and weight loss. Cough: - We will refer patient again to Pulmonary to perform PFTS to r/o pulmonary diseases. However, given a clear mucus, no fever, chills, increased dyspnea on exertion and lungs are CTAB making it less concern for a flare up/infection. She had an Xray done about a week ago for the same sxs of cough, and it was unremarkable. DDx: worsening GERD, Long COVID. To r/o worsening GERD I will increase omeprazole to 40mg once daily for one week and patient will evaluate herself. If sxs persist despite increase omeprazole then that is when she will start on Breo Ellipta increased dosage and evaluate her sxs. Meanwhile, we will be awaiting pulmonary referral for PFTS - If cough persists despite current management I will consider CT of the lungs. I have rendered the services for this patient under direct supervision of Dr. Cordero, who did not see the patient but was available upon request 07/07/2024 Gastro-esophageal reflux disease without esophagitis (ICD-10 - K21.9) Juan is 73 years old lady with acid reflux, arthritis and diverticulitis Is here for BP follow-up accompanied by her . Plan as follows: HTN: - BP is still running high in the office today. I will start patient on Losartan, avoided Lisinopril due to possible S/E of cough which is currently having hard time with. - Advised on reducing salt intake, hydration, exercising and weight loss. Cough: - We will refer patient again to Pulmonary to perform PFTS to r/o pulmonary diseases. However, given a clear mucus, no fever, chills, increased dyspnea on exertion and lungs are CTAB making it less concern for a flare up/infection. She had an Xray done about a week ago for the same sxs of cough, and it was unremarkable. DDx: worsening GERD, Long COVID. To r/o worsening GERD I will increase omeprazole to 40mg once daily for one week and patient will evaluate herself. If sxs persist despite increase omeprazole then that is when she will start on Breo Ellipta increased dosage and evaluate her sxs. Meanwhile, we will be awaiting pulmonary referral for PFTS - If cough persists despite current management I will consider CT of the lungs. I have rendered the services for this patient under direct supervision of Dr. Cordero, who did not see the patient but was available upon request 07/22/2024 Cough, unspecified (ICD-10 - R05.9) Juan is 74 years old lady with acid reflux, arthritis and diverticulitis Is here for BP follow-up accompanied by her . Plan as follows Hypertension - Blood pressure on retake is within acceptable limits. Continue on losartan 25 mg. Advised cutting down on sodium intake, hydration and exercising. Cough - Previous CAT scan done at the hospital showed tubular appearing density in the right middle lobe measuring 1.3 cm with pulmonary arterial varix, enlarged right hilar lymph node. She is currently on albuterol inhaler, nebulizer solution, and inhaled corticosteroid high dose. She is following up with Dr. Amos who ordered PFTs and sleep study. I have rendered the services for this patient under direct supervision of Dr. 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 Patient was seen by Dr. Santos she will follow up as an outpatient with district cardiology in 4-6 weeks. Continue with aspirin, continue Plavix 75 [place] daily atorvastatin 80 mg daily and metoprolol Lung nodulet followed by Dr. Amos pulmonology in [place] .Thyroid nodule she has history of subclinical hypothyroidism, multiple questions were answered today, spoke to patient's and daughter at length 05/15/2024 Solitary pulmonary nodule (ICD-10 - R91.1) Yanique is 73 years old lady with acid reflux, fatty liver, mixed type edema. She was recently hospitalized at [facility] for coronavirus 19 infection. Today she complains of gait instability/sarah ce problems, persistent cough, slurring of speech, wrist pain, skin lesion on the right drake area. She also had CT of the chest in the hospital and was positive for most likely right pulmonary nodule 1.3 cm and thyroid nodule 1.5 cm. Plan is as follows Post Covid syndrome. She has persistent cough and discussed with the patient and her family that it may persist from 6 weeks to 12 weeks. She has taken a course of antibiotics and prednisone in the recent past with no improvement. Her recent chest x-ray was negative. We will give her prednisone taper and will start her on controller inhaler and she will continue albuterol inhaler as needed Pulmonary nodule. Appears to be benign-appearing nodule but patient never had previous x-rays or CT scan to compare. She will be given referral to Dr. Abebe at [facility] pulmonology Thyroid nodule. She will be sent for ultrasound guided thyroid biopsy by interventional radiology Gait instability/wrist pain. She will have home physical therapy and occupational therapy. Slurred speech. Discussed with the patient and with family that she may have vascular changes which can be better understood by doing MRI of the brain but she is not interested at this point and we will do speech therapy. Right drake lesion. At this point advised to keep the area clean and do not use any topical ointments and observe and if there is no scabbing she will inform us. Diaphragmatic hernia. Continue PPIs. Due to current global pandemic of Covid -19 this visit was conducted over telephone in line with National Social Distancing Guidelines. Data gathered during this visit by patient self-report. Patient provided verbal consent to conduct the visit by telemedicine. Patient understands that it is a billable visit. Patient located in a home setting in [facility] during this telemedicine visit. Provider located at [facility] in [place] in [facility] 06/30/2024 Nontoxic single thyroid nodule (ICD-10 - E04.1) Yanique is 74 years old lady with acid reflux, fatty liver, mixed type edema is here for follow-up. She was recently hospitalized at [facility] for coronavirus 19 infection. Today she complains of gait instability/sarah ce problems, persistent cough, slurring of speech, wrist pain, skin lesion on the right drake area. She also had CT of the chest in the hospital and was positive for most likely right pulmonary nodule 1.3 cm and thyroid nodule 1.5 cm. Plan is as follows Pulmonary nodule. -Appears to be benign-appearing nodule but patient never had previous x-rays or CT scan to compare. She will be given referral to [facility] pulmonology Thyroid nodule. - Incidental finding of 1.5cm. She has a referral to IR for ultrasound guided thyroid biopsy by interventional radiology, and we have also referred her before for U/S. TSH was done in April and it was WNL. Gait instability/wrist pain. - She will has PT. She did notice improvement. She uses the walker - She also has a referral to hand surgeon for wrist pain. Slurred speech. - MRI is ordered. We will also send a referral to speech therapy. Edema; - STates that her face is puffy, and her legs are swollen. PE is remarkable for 2+ pitting edema otherwise lungs are CTAB. Possible due to recent prednisone with taper. I will also check for BMP and CXR to r/o abnormalities. - Advised on hydration, exercising and elevating the legs. Can also use compression stockings. HTN: - Blood pressure is elevated on repeat. No history of elevated BP. At home, it is usually normal. She was recently on prednisone taper. We will check BP in one week. Advised patient on Continuing to Monitor Blood pressure at home, reduce salt intake, exercise and weight loss. Diaphragmatic hernia. -Continue PPIs. I have rendered the services for this patient under direct supervision of Dr. Cordero, who did not see the patient but was available upon request 04/29/2024 Cough (ICD-10 - R05.9) Mrs. Peña is a 73-year-old lady with GERD, history of diverticulitis and arthritis of bilateral hands/thumb here for cough post COVID and she was recently admitted to the hospital for worsening cough. Plan as follows: Abnormal CT scan, chest Cough - Incidental finding of Tubular appearing density in the RML measuring up to 1.3 cm. Per report, finding can represent a pulmonary arterial varix rather than true pulmonary nodule, also a borderline enlarged right hilar lymph node. CT with contrast is ordered. - CTA was performed in the hospital. No evidence of PE or PNA - She continues to endorse worsening cough, she is running low grade fever today. Lungs are remarkable for diminished breath sounds throughout. I ordered an X-ray to r/o PNA. I have started patient on Zpack and prednisone for cough. Resumed her on Guaifenesin-codei ne for 14 days. - Given recent COVID and lingering cough. I referred to pulmonology for possible long COVID. Multinodular Thyroid: - Incidental finding of multinodular enlarged left thyroid gland with thyroid nodules greater than 1.5 cm. U/S of thyroid is ordered along with TFT. Hepatic Steatosis: - Incidental finding on chest CT. Ordered hepatic function along with hepatitis panel. Right Diaphragmatic hernia: - Incidental finding on CT. Small hiatel hernia. I have rendered the services for this patient under direct supervision of Dr. Cordero, who did not see the patient but was available upon request 03/31/2024 Polyosteoarthritis , unspecified (ICD-10 - M15.9) Mrs. Peña is a 73-year-old lady with GERD, history of diverticulitis and arthritis of bilateral hands/thumb here to establish care. Plan is as follows: Hyperlipidemia. Last lipid panel was running high. Suggested dietary modifications. Recheck lipid panel. GERD. Stable on Omeprazole 20 MG. Referred to GI for further management and evaluation and for possible endoscopy. Gait instability. Referred to Physical therapy. Cough. Discussed it may take some time for symptoms to clear. Start Benzonatate 100 MG TID PRN for 7 days along with Fluticasone nasal spray. Advised appropriate hydration. Screening blood work before next appointment. General health concerns discussed with patient. Scribe services used to formulate this note under HIPAA compliance and under [place] law mandated for scribe services. Patient aware of service. Verbal consent and written consent taken from the patient. Patient understands and verbalizes understanding of the scribes services and all questions answered regarding scribes services. Patient agrees to use of scribes services. 03/31/2024 Diverticulitis of large intestine without perforation or abscess without bleeding (ICD-10 - K57.32) Mrs. Peña is a 73-year-old lady with GERD, history of diverticulitis and arthritis of bilateral hands/thumb here to establish care. Plan is as follows: Hyperlipidemia. Last lipid panel was running high. Suggested dietary modifications. Recheck lipid panel. GERD. Stable on Omeprazole 20 MG. Referred to GI for further management and evaluation and for possible endoscopy. Gait instability. Referred to Physical therapy. Cough. Discussed it may take some time for symptoms to clear. Start Benzonatate 100 MG TID PRN for 7 days along with Fluticasone nasal spray. Advised appropriate hydration. Screening blood work before next appointment. General health concerns discussed with patient. Scribe services used to formulate this note under HIPAA compliance and under [place] law mandated for scribe services. Patient aware of service. Verbal consent and written consent taken from the patient. Patient understands and verbalizes understanding of the scribes services and all questions answered regarding scribes services. Patient agrees to use of scribes services. 05/15/2024 Nontoxic single thyroid nodule (ICD-10 - E04.1) Yanique is 73 years old lady with acid reflux, fatty liver, mixed type edema. She was recently hospitalized at [facility] for coronavirus 19 infection. Today she complains of gait instability/sarah ce problems, persistent cough, slurring of speech, wrist pain, skin lesion on the right drake area. She also had CT of the chest in the hospital and was positive for most likely right pulmonary nodule 1.3 cm and thyroid nodule 1.5 cm. Plan is as follows Post Covid syndrome. She has persistent cough and discussed with the patient and her family that it may persist from 6 weeks to 12 weeks. She has taken a course of antibiotics and prednisone in the recent past with no improvement. Her recent chest x-ray was negative. We will give her prednisone taper and will start her on controller inhaler and she will continue albuterol inhaler as needed Pulmonary nodule. Appears to be benign-appearing nodule but patient never had previous x-rays or CT scan to compare. She will be given referral to Dr. Abebe at [facility] pulmonology Thyroid nodule. She will be sent for ultrasound guided thyroid biopsy by interventional radiology Gait instability/wrist pain. She will have home physical therapy and occupational therapy. Slurred speech. Discussed with the patient and with family that she may have vascular changes which can be better understood by doing MRI of the brain but she is not interested at this point and we will do speech therapy. Right drake lesion. At this point advised to keep the area clean and do not use any topical ointments and observe and if there is no scabbing she will inform us. Diaphragmatic hernia. Continue PPIs. Due to current global pandemic of Covid -19 this visit was conducted over telephone in line with National Social Distancing Guidelines. Data gathered during this visit by patient self-report. Patient provided verbal consent to conduct the visit by telemedicine. Patient understands that it is a billable visit. Patient located in a home setting in [facility] during this telemedicine visit. Provider located at [facility] in [place] in [facility] 06/30/2024 Other abnormalities of gait and mobility (ICD-10 - R26.89) Yanique is 74 years old lady with acid reflux, fatty liver, mixed type edema is here for follow-up. She was recently hospitalized at [facility] for coronavirus 19 infection. Today she complains of gait instability/sarah ce problems, persistent cough, slurring of speech, wrist pain, skin lesion on the right drake area. She also had CT of the chest in the hospital and was positive for most likely right pulmonary nodule 1.3 cm and thyroid nodule 1.5 cm. Plan is as follows Pulmonary nodule. -Appears to be benign-appearing nodule but patient never had previous x-rays or CT scan to compare. She will be given referral to [facility] pulmonology Thyroid nodule. - Incidental finding of 1.5cm. She has a referral to IR for ultrasound guided thyroid biopsy by interventional radiology, and we have also referred her before for U/S. TSH was done in April and it was WNL. Gait instability/wrist pain. - She will has PT. She did notice improvement. She uses the walker - She also has a referral to hand surgeon for wrist pain. Slurred speech. - MRI is ordered. We will also send a referral to speech therapy. Edema; - STates that her face is puffy, and her legs are swollen. PE is remarkable for 2+ pitting edema otherwise lungs are CTAB. Possible due to recent prednisone with taper. I will also check for BMP and CXR to r/o abnormalities. - Advised on hydration, exercising and elevating the legs. Can also use compression stockings. HTN: - Blood pressure is elevated on repeat. No history of elevated BP. At home, it is usually normal. She was recently on prednisone taper. We will check BP in one week. Advised patient on Continuing to Monitor Blood pressure at home, reduce salt intake, exercise and weight loss. Diaphragmatic hernia. -Continue PPIs. I have rendered the services for this patient under direct supervision of Dr. 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 Peña is a 73-year-old lady with GERD, history of diverticulitis and arthritis of bilateral hands/thumb here for cough post COVID and she was recently admitted to the hospital for worsening cough. Plan as follows: Abnormal CT scan, chest Cough - Incidental finding of Tubular appearing density in the RML measuring up to 1.3 cm. Per report, finding can represent a pulmonary arterial varix rather than true pulmonary nodule, also a borderline enlarged right hilar lymph node. CT with contrast is ordered. - CTA was performed in the hospital. No evidence of PE or PNA - She continues to endorse worsening cough, she is running low grade fever today. Lungs are remarkable for diminished breath sounds throughout. I ordered an X-ray to r/o PNA. I have started patient on Zpack and prednisone for cough. Resumed her on Guaifenesin-codei ne for 14 days. - Given recent COVID and lingering cough. I referred to pulmonology for possible long COVID. Multinodular Thyroid: - Incidental finding of multinodular enlarged left thyroid gland with thyroid nodules greater than 1.5 cm. U/S of thyroid is ordered along with TFT. Hepatic Steatosis: - Incidental finding on chest CT. Ordered hepatic function along with hepatitis panel. Right Diaphragmatic hernia: - Incidental finding on CT. Small hiatel hernia. I have rendered the services for this patient under direct supervision of Dr. Cordero, who did not see the patient but was available upon request 10/29/2024 Post COVID-19 condition, unspecified (ICD-10 - U09.9) 74-yrs with history of post coitus syndrome, hypertension, ST elevation UT status post stent, chronic cough tracheomalacia is [...] wrap's and elevation History of ST elevation UT status post stent placement mid RCA DS, left main is 45% stenosis but medically treated. Patient was seen by Dr. Santos she will follow up as an outpatient with district cardiology in 4-6 weeks. Continue with aspirin, continue Plavix 75 Fouzia daily atorvastatin 80 mg daily and metoprolol Lung nodulet followed by Dr. Amos pulmonology in [place] .Thyroid nodule she has history of subclinical hypothyroidism, multiple questions were answered today, spoke to patient's and daughter at length 04/29/2024 Fatty (change of) liver, not elsewhere classified (ICD-10 - K76.0) Mrs. Peña is a 73-year-old lady with GERD, history of diverticulitis and arthritis of bilateral hands/thumb here for cough post COVID and she was recently admitted to the hospital for worsening cough. Plan as follows: Abnormal CT scan, chest Cough - Incidental finding of Tubular appearing density in the RML measuring up to 1.3 cm. Per report, finding can represent a pulmonary arterial varix rather than true pulmonary nodule, also a borderline enlarged right hilar lymph node. CT with contrast is ordered. - CTA was performed in the hospital. No evidence of PE or PNA - She continues to endorse worsening cough, she is running low grade fever today. Lungs are remarkable for diminished breath sounds throughout. I ordered an X-ray to r/o PNA. I have started patient on Zpack and prednisone for cough. Resumed her on Guaifenesin-codei ne for 14 days. - Given recent COVID and lingering cough. I referred to pulmonology for possible long COVID. Multinodular Thyroid: - Incidental finding of multinodular enlarged left thyroid gland with thyroid nodules greater than 1.5 cm. U/S of thyroid is ordered along with TFT. Hepatic Steatosis: - Incidental finding on chest CT. Ordered hepatic function along with hepatitis panel. Right Diaphragmatic hernia: - Incidental finding on CT. Small hiatel hernia. I have rendered the services for this patient under direct supervision of Dr. Cordero, who did not see the patient but was available upon request 05/15/2024 Other abnormalities of gait and mobility (ICD-10 - R26.89) Yanique is 73 years old lady with acid reflux, fatty liver, mixed type edema. She was recently hospitalized at [facility] for coronavirus 19 infection. Today she complains of gait instability/sarah ce problems, persistent cough, slurring of speech, wrist pain, skin lesion on the right drake area. She also had CT of the chest in the hospital and was positive for most likely right pulmonary nodule 1.3 cm and thyroid nodule 1.5 cm. Plan is as follows Post Covid syndrome. She has persistent cough and discussed with the patient and her family that it may persist from 6 weeks to 12 weeks. She has taken a course of antibiotics and prednisone in the recent past with no improvement. Her recent chest x-ray was negative. We will give her prednisone taper and will start her on controller inhaler and she will continue albuterol inhaler as needed Pulmonary nodule. Appears to be benign-appearing nodule but patient never had previous x-rays or CT scan to compare. She will be given referral to Dr. Abebe at [facility] pulmonology Thyroid nodule. She will be sent for ultrasound guided thyroid biopsy by interventional radiology Gait instability/wrist pain. She will have home physical therapy and occupational therapy. Slurred speech. Discussed with the patient and with family that she may have vascular changes which can be better understood by doing MRI of the brain but she is not interested at this point and we will do speech therapy. Right drake lesion. At this point advised to keep the area clean and do not use any topical ointments and observe and if there is no scabbing she will inform us. Diaphragmatic hernia. Continue PPIs. Due to current global pandemic of Covid -19 this visit was conducted over telephone in line with National Social Distancing Guidelines. Data gathered during this visit by patient self-report. Patient provided verbal consent to conduct the visit by telemedicine. Patient understands that it is a billable visit. Patient located in a home setting in [facility] during this telemedicine visit. Provider located at [facility] in [place] in [facility] 06/30/2024 Pain in right wrist (ICD-10 - M25.531) Yanique is 74 years old lady with acid reflux, fatty liver, mixed type edema is here for follow-up. She was recently hospitalized at [facility] for coronavirus 19 infection. Today she complains of gait instability/sarah ce problems, persistent cough, slurring of speech, wrist pain, skin lesion on the right drake area. She also had CT of the chest in the hospital and was positive for most likely right pulmonary nodule 1.3 cm and thyroid nodule 1.5 cm. Plan is as follows Pulmonary nodule. -Appears to be benign-appearing nodule but patient never had previous x-rays or CT scan to compare. She will be given referral to [facility] pulmonology Thyroid nodule. - Incidental finding of 1.5cm. She has a referral to IR for ultrasound guided thyroid biopsy by interventional radiology, and we have also referred her before for U/S. TSH was done in April and it was WNL. Gait instability/wrist pain. - She will has PT. She did notice improvement. She uses the walker - She also has a referral to hand surgeon for wrist pain. Slurred speech. - MRI is ordered. We will also send a referral to speech therapy. Edema; - STates that her face is puffy, and her legs are swollen. PE is remarkable for 2+ pitting edema otherwise lungs are CTAB. Possible due to recent prednisone with taper. I will also check for BMP and CXR to r/o abnormalities. - Advised on hydration, exercising and elevating the legs. Can also use compression stockings. HTN: - Blood pressure is elevated on repeat. No history of elevated BP. At home, it is usually normal. She was recently on prednisone taper. We will check BP in one week. Advised patient on Continuing to Monitor Blood pressure at home, reduce salt intake, exercise and weight loss. Diaphragmatic hernia. -Continue PPIs. I have rendered the services for this patient under direct supervision of Dr. Cordero, who did not see the patient but was available upon request 03/31/2024 Cough, unspecified (ICD-10 - R05.9) Mrs. Peña is a 73-year-old lady with GERD, history of diverticulitis and arthritis of bilateral hands/thumb here to establish care. Plan is as follows: Hyperlipidemia. Last lipid panel was running high. Suggested dietary modifications. Recheck lipid panel. GERD. Stable on Omeprazole 20 MG. Referred to GI for further management and evaluation and for possible endoscopy. Gait instability. Referred to Physical therapy. Cough. Discussed it may take some time for symptoms to clear. Start Benzonatate 100 MG TID PRN for 7 days along with Fluticasone nasal spray. Advised appropriate hydration. Screening blood work before next appointment. General health concerns discussed with patient. Scribe services used to formulate this note under HIPAA compliance and under [place] law mandated for scribe services. Patient aware of service. Verbal consent and written consent taken from the patient. Patient understands and verbalizes understanding of the scribes services and all questions answered regarding scribes services. Patient agrees to use of scribes services. 05/15/2024 Pain in right wrist (ICD-10 - M25.531) Yanique is 73 years old lady with acid reflux, fatty liver, mixed type edema. She was recently hospitalized at [facility] for coronavirus 19 infection. Today she complains of gait instability/sarah ce problems, persistent cough, slurring of speech, wrist pain, skin lesion on the right drake area. She also had CT of the chest in the hospital and was positive for most likely right pulmonary nodule 1.3 cm and thyroid nodule 1.5 cm. Plan is as follows Post Covid syndrome. She has persistent cough and discussed with the patient and her family that it may persist from 6 weeks to 12 weeks. She has taken a course of antibiotics and prednisone in the recent past with no improvement. Her recent chest x-ray was negative. We will give her prednisone taper and will start her on controller inhaler and she will continue albuterol inhaler as needed Pulmonary nodule. Appears to be benign-appearing nodule but patient never had previous x-rays or CT scan to compare. She will be given referral to Dr. Abebe at [facility] pulmonology Thyroid nodule. She will be sent for ultrasound guided thyroid biopsy by interventional radiology Gait instability/wrist pain. She will have home physical therapy and occupational therapy. Slurred speech. Discussed with the patient and with family that she may have vascular changes which can be better understood by doing MRI of the brain but she is not interested at this point and we will do speech therapy. Right drake lesion. At this point advised to keep the area clean and do not use any topical ointments and observe and if there is no scabbing she will inform us. Diaphragmatic hernia. Continue PPIs. Due to current global pandemic of Covid -19 this visit was conducted over telephone in line with National Social Distancing Guidelines. Data gathered during this visit by patient self-report. Patient provided verbal consent to conduct the visit by telemedicine. Patient understands that it is a billable visit. Patient located in a home setting in [facility] during this telemedicine visit. Provider located at [facility] in [place] in [facility] 06/30/2024 Slurred speech (ICD-10 - R47.81) Yanique is 74 years old lady with acid reflux, fatty liver, mixed type edema is here for follow-up. She was recently hospitalized at [facility] for coronavirus 19 infection. Today she complains of gait instability/sarah ce problems, persistent cough, slurring of speech, wrist pain, skin lesion on the right drake area. She also had CT of the chest in the hospital and was positive for most likely right pulmonary nodule 1.3 cm and thyroid nodule 1.5 cm. Plan is as follows Pulmonary nodule. -Appears to be benign-appearing nodule but patient never had previous x-rays or CT scan to compare. She will be given referral to [facility] pulmonology Thyroid nodule. - Incidental finding of 1.5cm. She has a referral to IR for ultrasound guided thyroid biopsy by interventional radiology, and we have also referred her before for U/S. TSH was done in April and it was WNL. Gait instability/wrist pain. - She will has PT. She did notice improvement. She uses the walker - She also has a referral to hand surgeon for wrist pain. Slurred speech. - MRI is ordered. We will also send a referral to speech therapy. Edema; - STates that her face is puffy, and her legs are swollen. PE is remarkable for 2+ pitting edema otherwise lungs are CTAB. Possible due to recent prednisone with taper. I will also check for BMP and CXR to r/o abnormalities. - Advised on hydration, exercising and elevating the legs. Can also use compression stockings. HTN: - Blood pressure is elevated on repeat. No history of elevated BP. At home, it is usually normal. She was recently on prednisone taper. We will check BP in one week. Advised patient on Continuing to Monitor Blood pressure at home, reduce salt intake, exercise and weight loss. Diaphragmatic hernia. -Continue PPIs. I have rendered the services for this patient under direct supervision of Dr. Cordero, who did not see the patient but was available upon request 04/29/2024 Diaphragmatic hernia without obstruction or gangrene (ICD-10 - K44.9) Mrs. Peña is a 73-year-old lady with GERD, history of diverticulitis and arthritis of bilateral hands/thumb here for cough post COVID and she was recently admitted to the hospital for worsening cough. Plan as follows: Abnormal CT scan, chest Cough - Incidental finding of Tubular appearing density in the RML measuring up to 1.3 cm. Per report, finding can represent a pulmonary arterial varix rather than true pulmonary nodule, also a borderline enlarged right hilar lymph node. CT with contrast is ordered. - CTA was performed in the hospital. No evidence of PE or PNA - She continues to endorse worsening cough, she is running low grade fever today. Lungs are remarkable for diminished breath sounds throughout. I ordered an X-ray to r/o PNA. I have started patient on Zpack and prednisone for cough. Resumed her on Guaifenesin-codei ne for 14 days. - Given recent COVID and lingering cough. I referred to pulmonology for possible long COVID. Multinodular Thyroid: - Incidental finding of multinodular enlarged left thyroid gland with thyroid nodules greater than 1.5 cm. U/S of thyroid is ordered along with TFT. Hepatic Steatosis: - Incidental finding on chest CT. Ordered hepatic function along with hepatitis panel. Right Diaphragmatic hernia: - Incidental finding on CT. Small hiatel hernia. I have rendered the services for this patient under direct supervision of Dr. Cordero, who did not see the patient but was available upon request 06/30/2024 Edema, unspecified (ICD-10 - R60.9) Yanique is 74 years old lady with acid reflux, fatty liver, mixed type edema is here for follow-up. She was recently hospitalized at [facility] for coronavirus 19 infection. Today she complains of gait instability/sarah ce problems, persistent cough, slurring of speech, wrist pain, skin lesion on the right drake area. She also had CT of the chest in the hospital and was positive for most likely right pulmonary nodule 1.3 cm and thyroid nodule 1.5 cm. Plan is as follows Pulmonary nodule. -Appears to be benign-appearing nodule but patient never had previous x-rays or CT scan to compare. She will be given referral to [facility] pulmonology Thyroid nodule. - Incidental finding of 1.5cm. She has a referral to IR for ultrasound guided thyroid biopsy by interventional radiology, and we have also referred her before for U/S. TSH was done in April and it was WNL. Gait instability/wrist pain. - She will has PT. She did notice improvement. She uses the walker - She also has a referral to hand surgeon for wrist pain. Slurred speech. - MRI is ordered. We will also send a referral to speech therapy. Edema; - STates that her face is puffy, and her legs are swollen. PE is remarkable for 2+ pitting edema otherwise lungs are CTAB. Possible due to recent prednisone with taper. I will also check for BMP and CXR to r/o abnormalities. - Advised on hydration, exercising and elevating the legs. Can also use compression stockings. HTN: - Blood pressure is elevated on repeat. No history of elevated BP. At home, it is usually normal. She was recently on prednisone taper. We will check BP in one week. Advised patient on Continuing to Monitor Blood pressure at home, reduce salt intake, exercise and weight loss. Diaphragmatic hernia. -Continue PPIs. I have rendered the services for this patient under direct supervision of Dr. Cordero, who did not see the patient but was available upon request 06/30/2024 Essential (primary) hypertension (ICD-10 - I10) Yaniqeu is 74 years old lady with acid reflux, fatty liver, mixed type edema is here for follow-up. She was recently hospitalized at [facility] for coronavirus 19 infection. Today she complains of gait instability/sarah ce problems, persistent cough, slurring of speech, wrist pain, skin lesion on the right drake area. She also had CT of the chest in the hospital and was positive for most likely right pulmonary nodule 1.3 cm and thyroid nodule 1.5 cm. Plan is as follows Pulmonary nodule. -Appears to be benign-appearing nodule but patient never had previous x-rays or CT scan to compare. She will be given referral to [facility] pulmonology Thyroid nodule. - Incidental finding of 1.5cm. She has a referral to IR for ultrasound guided thyroid biopsy by interventional radiology, and we have also referred her before for U/S. TSH was done in April and it was WNL. Gait instability/wrist pain. - She will has PT. She did notice improvement. She uses the walker - She also has a referral to hand surgeon for wrist pain. Slurred speech. - MRI is ordered. We will also send a referral to speech therapy. Edema; - STates that her face is puffy, and her legs are swollen. PE is remarkable for 2+ pitting edema otherwise lungs are CTAB. Possible due to recent prednisone with taper. I will also check for BMP and CXR to r/o abnormalities. - Advised on hydration, exercising and elevating the legs. Can also use compression stockings. HTN: - Blood pressure is elevated on repeat. No history of elevated BP. At home, it is usually normal. She was recently on prednisone taper. We will check BP in one week. Advised patient on Continuing to Monitor Blood pressure at home, reduce salt intake, exercise and weight loss. Diaphragmatic hernia. -Continue PPIs. I have rendered the services for this patient under direct supervision of Dr. Cordero, who did not see the patient but was available upon request 06/30/2024 Gastro-esophageal reflux disease without esophagitis (ICD-10 - K21.9) Yanique is 74 years old lady with acid reflux, fatty liver, mixed type edema is here for follow-up. She was recently hospitalized at [facility] for coronavirus 19 infection. Today she complains of gait instability/sarah ce problems, persistent cough, slurring of speech, wrist pain, skin lesion on the right drake area. She also had CT of the chest in the hospital and was positive for most likely right pulmonary nodule 1.3 cm and thyroid nodule 1.5 cm. Plan is as follows Pulmonary nodule. -Appears to be benign-appearing nodule but patient never had previous x-rays or CT scan to compare. She will be given referral to [facility] pulmonology Thyroid nodule. - Incidental finding of 1.5cm. She has a referral to IR for ultrasound guided thyroid biopsy by interventional radiology, and we have also referred her before for U/S. TSH was done in April and it was WNL. Gait instability/wrist pain. - She will has PT. She did notice improvement. She uses the walker - She also has a referral to hand surgeon for wrist pain. Slurred speech. - MRI is ordered. We will also send a referral to speech therapy. Edema; - STates that her face is puffy, and her legs are swollen. PE is remarkable for 2+ pitting edema otherwise lungs are CTAB. Possible due to recent prednisone with taper. I will also check for BMP and CXR to r/o abnormalities. - Advised on hydration, exercising and elevating the legs. Can also use compression stockings. HTN: - Blood pressure is elevated on repeat. No history of elevated BP. At home, it is usually normal. She was recently on prednisone taper. We will check BP in one week. Advised patient on Continuing to Monitor Blood pressure at home, reduce salt intake, exercise and weight loss. Diaphragmatic hernia. -Continue PPIs. I have rendered the services for this patient under direct supervision of Dr. Cordero, who did not see the patient but was available upon request Plan Of Treatment Pending Test Test Name Order Date CT Scan : Chest with contrast 04/29/2024 Ultrasound : Neck 04/29/2024 MRI : Brain without Contrast 06/30/2024 MR Brain WO 10/29/2024 US Thyroid 07/09/2024 Ultrasound: Needle Biopsy Thyroid-Rad Xray: Chest-Standard Frontal & Lat 06/30 Xray: Chest-Standard Frontal & Lat 04/29 Hepatitis B Surf Ab Quant-[id number] Hep B Core Ab, [id number] 04/29/2024 Next Appt Details Provider Name:Georgi Tierney, 0 12/22/2024 11:30:00 AM, [address] [place] [address], [place], [address], Insurance Providers Payer Name Payer Address Payer Phone Subscriber Number Group Number Insured Name Patient Relationship to Insured Coverage Start Date Coverage End Date [employer] MEDICARE COMPLETE [address] [address] [place] [address] [id number] JUAN YOUSSEF Self - patient is the insured Medical (General) History Medical History History ICD Code GERD arthritis, bilateral hand/thumb diverticulitis Surgical History Surgery Date(Month/Year) right total knee replacement left rotator cuff repair, left bicep mus dana -work related
[2024-11-02 23:08] LABS: Class Alternaria alternata 0; Class Aspergillus fumigatus 0; Class Bermuda Grass 0; Class Birch 0; Class Cat Dander 0; Class Cladosporium herbarum 0; Class Cockroach 0; Class Common Ragweed 0; Class Cottonwood 0; Class Derm. pterony 0; Class Dermatophagoides farinae 0; Class Dog Dander 0; Class Elm 0; Class Maple Box Elder 0; Class Mountain Cedar 0; Class Mouse Urine Protein 0; Class Mugwort 0; Class Oak 0; Class Penicillium crysogenum 0; Class Rough Pigweed 0; Class Sheep Sorrel 0; Class Sycamore 0; Class Timothy Grass 0; Class Walnut Tree 0; Class White Ash 0; Class White Mulberry 0; D001 IgE D pteronyssinus <0.10 kU/L; D002 - IgE D farinae <0.10 kU/L; E001 - IgE Cat Dander <0.10 kU/L; E005 - IgE Dog Dander <0.10 kU/L; E072-IgE Mouse Urine <0.10 kU/L; G002 IgE Bermuda Grass <0.10 kU/L; G006 - IgE Timothy Grass <0.10 kU/L; I006-IgE Cockroach, German <0.10 kU/L; Immunoglobulin E 2 kU/L (<OR=114); M001 IgE Penicillium chrysogen <0.10 kU/L; M002 - IgE Cladosporium herbar <0.10 kU/L; M003 - IgE Aspergillus fumigat <0.10 kU/L; M006 - IgE Alternaria alternat <0.10 kU/L; T001 IgE Maple/Box Elder <0.10 kU/L; T003 IgE Common Silver Birch <0.10 kU/L; T006 - IgE Cedar, Mountain <0.10 kU/L; T007 - IgE Oak, White <0.10 kU/L; T008 IgE Elm, American <0.10 kU/L; T010 - IgE Walnut <0.10 kU/L; T011 - IgE Maple Leaf Sycamore <0.10 kU/L; T014 - IgE Cottonwood <0.10 kU/L; T015 - IgE Ash, White <0.10 kU/L; T070 - IgE White Mulberry <0.10 kU/L; W001 - IgE Ragweed, Short <0.10 kU/L; W006 - IgE Mugwort <0.10 kU/L; W014 IgE Pigweed, Common <0.10 kU/L; W018 IgE Sheep Sorrel <0.10 kU/L
== END 2024-10-30 10:39 | disposition home or self-care (01) ==
LOC: HO.LAB 10:38
PROVIDERS: PCP Hospitalist; Visit Provider Hospitalist
DX: R05.3 Chronic cough (principal); I50.9 Heart failure, unspecified; R91.1 Solitary pulmonary nodule; T78.40XA Allergy, unspecified, initial encounter; U09.9 Post COVID-19 condition, unspecified; J39.8 Other specified diseases of upper respiratory tract; G47.33 Obstructive sleep apnea (adult) (pediatric)
CPT/HCPCS: 36415; 80048; 82785; 83880; 84484; 85025; 85652; 86003; 99212

== ENCOUNTER 2024-12-09 12:34 | Outpatient (REF) | payer MEDICARE, SELFPAY ==
--- NOTE | ~2024-12-09 | CT_ITS ---
EXAMINATION: CT CHEST WITHOUT IV CONTRAST INDICATION: R91.1 - Solitary pulmonary nodule COMPARISON: There are no prior studies available for comparison. TECHNIQUE: Helical CT scan of the chest was performed without intravenous contrast. Coronal and sagittal reformatted images were generated and reviewed. This CT exam was performed with one or more of the following dose reduction techniques: automated exposure control, adjustment of the mA and/or kV according to patient size, use of iterative reconstruction technique. DLP: 191 mGy-cm CHEST: THYROID: There is heterogeneous enlargement of the left thyroid lobe compatible with a nodule as noted on thyroid ultrasound 07/21/2024. Please see ultrasound report. LUNGS: There is an area of probable linear scarring in the right middle lobe which contains an ovoid 11 x 5 mm nodule (series 4, image 70). No additional pulmonary nodules are identified. MEDIASTINUM: There is no mediastinal lymphadenopathy. JES: Evaluation of the hilar regions is limited by lack of intravenous contrast material. CARDIOVASCULATURE: The heart is normal in size. There is no pericardial effusion. The thoracic aorta is normal in caliber. DEGREE OF CORONARY CALCIFICATION: severe PLEURA: There is no pleural effusion. No pneumothorax. MAIN AIRWAYS: The mainstem bronchi and proximal branches are patent. AXILLA: There are prominent bilateral axillary lymph nodes, the largest of which is on the right measuring up to 1.6 cm in size. BONES AND SOFT TISSUES: Unremarkable UPPER ABDOMEN: The visualized portions of the liver, spleen, and adrenals have an unremarkable unenhanced appearance. There is a small hiatal hernia. CT/CT chest wo IV con IMPRESSION: 11 x 8 mm nodule in the right middle lobe with associated scarring. Comparison with prior outside studies is recommended. Electronically signed by: Sidney Elder MD 12/09/2024 03:40 PM EDT
--- OUTSIDE RECORDS SUMMARY | 2024-12-09 14:32 | XMS_ITS ---
Author Organization [facility] Address [address] [address] Care Team Providers Care Codifier Name Role Phone LUCILA CORDERO Primary Care Provider [phone] REASON FOR VISIT Pantoprazole clarification Medications Medication SIG (Take, Route, Frequency, Duration) Notes Start Date End Date Status Pantoprazole Sodium 40 MG 1 tablet on an empty stomach Orally twice a day for 30 days Active Encounters Encounter Location Date Provider Diagnosis [facility] [address] [address] 12/02/2024 LUCILA CORDERO Plan Of Treatment Medication Medication Name Sig Start Date Stop Date Notes Pantoprazole Sodium 40 MG 1 tablet on an empty stomach Orally twice a day for 30 days Next Appt Details Provider Name:Georgi Tierney, John 12/22/2024 11:30:00 AM, [address] [place] [address], [place], [address], Progress Notes * MAMTA YOUSSEFOB: (74 yo F)Acc No.[id number]:12/02/2024 Patient:?JUAN YOUSSEF :1950???Age:74 Y???Sex:Female Phone: Address:[address] [place] [id number] * Refills? Refill Pantoprazole Sodium Tablet Delayed Release, 40 MG, Orally, 60 Tablet, 1 tablet on an empty stomach, twice a day, 30 days, Refills=5 * true * Date:? Generated for Printi vickie/Faanng/eTransmitting on:?12/09/2024 02:32 PM EDT
--- OUTSIDE RECORDS SUMMARY | 2024-12-09 14:32 | XMS_ITS ---
Author Organization [facility] Address [address] [place] [address] Care Team Providers Care Fruit Grower Name Role Phone LUCILA CORDERO Primary Care Provider [phone] REASON FOR VISIT meds Encounters Encounter Location Date Provider Diagnosis [facility] [address] [address] 12/01/2024 LUCILA CORDERO Plan Of Treatment Medication Medication Name Sig Start Date Stop Date Notes Omeprazole 20 MG 1 capsule 30 minutes before morning meal Orally Once a day Next Appt Details Provider Name:Georgi Tierney, 0 12/22/2024 11:30:00 AM, [address] [place] [address], [place], [address], Progress Notes * MAMTA YOUSSEFOB: 9 (74 yo F)Acc No.[id number]:12/01/2024 Patient:?JUAN YOUSSEF :1950???Age:74 Y???Sex:Female Phone: Address:[address] [place] [address] * Refills? Stop Omeprazole Capsule Delayed Release, 20 MG, Orally, 1 capsule 30 minutes before morning meal, Once a day * true * Date:? Generated for Corbin johnston/Senia/eTransmitting on:?12/09/2024 02:32 PM EDT
--- OUTSIDE RECORDS SUMMARY | 2024-12-09 14:32 | XMS_ITS ---
Author Organization [facility] Address [address] [place] [address] Care Team Providers Care Tattoo Designer Name Role Phone LUCILA CORDERO Primary Care Provider [phone] REASON FOR VISIT Med Review Req Encounters Encounter Location Date Provider Diagnosis [facility] [address] [address] 12/04/2024 LUCILA CORDERO Plan Of Treatment Next Appt Details Provider Name:Georgi Tierney, 0 12/22/2024 11:30:00 AM, [address] [place] [address], [place], [address], Progress Notes * MAMTA YOUSSEFOB: (74 yo F)Acc No.[id number]:12/04/2024 Patient:?JUAN YOUSSEF :1950???Age:74 Y???Sex:Female Phone: Address:[address] [place] [address], [place] [address] * true * Date:? Generated for Urszulai vickie/Senia/eTransmitting on:?12/09/2024 02:32 PM EDT
--- OUTSIDE RECORDS SUMMARY | 2024-12-09 14:32 | XMS_ITS | Data Portability ---
Author Organization [place] [facility] Address [address] [place] [address] Care Team Providers Care Paint Crew Supervisor Name Role Phone CARA FELTON Primary Care Provider Assessment Encounter Date Assessment [...] . Referral speech therapy referral 2024 025 [facility], [address] [place] [address], [address] Floor, [place], [address], 5 11:03:59 Procedures None recorded . 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 Procedures Surgical History Date Name Laterality Status Provider Name and Address Organization Details Recorded Time 09/30/19 25 Fiberoptic Laryngoscopy (Comprehensive) completed CHRIS WARREN MD [address], [address], [place] - [facility] 09/30/2024 15:44:06 02/06/20 24 Comp Audio with Tymps (67923 & 59523) completed ELIANA LORENZANA [address], [address], [place] - [facility] 02/06/2024 10:34:07 total knee replacement completed Brianna Daniels [place] - [facility] 02/06/2024 10:37:01 procedure on shoulder completed Brianna Daniels [place] - [facility] 02/06/2024 10:37:09 complete repair of rotator cuff completed Brianna Daniels [place] [facility] 02/06/2024 10:37:40 procedure on elbow completed Brianna Daniels [facility] 02/06/2024 10:38:13 Imaging Results Imaging Date Name Status LastModified by Organiz ation Details LastModified Time 02/12/2024 audiogram completed [facility] Information no t available 02/12/2024 12:37:41 Procedure Notes None recorded. Medical Equipment None Reported. Allergies Allergen ID Allergen Name Allergen Category Reaction Reaction Severity Criticality Documentation Date Start Date Code Code System Note Provider Name and Address Organization Details Recorded Time 390010 Product containin g penicilli n (product) medicatio n Not available Not available Not available 02/06/2024 89281 8001 SNOMED Brianna pennington [facility] 4 10:28:43 592744 Substance with sulfonami de structure and antibacte rial mechanism of action (substanc e) medicatio n Not available Not available Not available 02/06/2024 28639 8003 SNOMED Brianna pennington [place] [facility] 4 10:28:50 162060 wheat preparati on food,medi cation Not available Not available Not available 02/06/2024 31938 52 RxNorm Brianna pennington [facility] 4 10:28:58 386444 soy environme nt,food,m edication Not available Not available Not available 02/06/2024 53607 UNK Brianna pennington [place] [facility] 4 10:29:04 089653 shellfish derived food,medi cation Not available Not available Not available 02/06/2024 78884 UNK Brianna pennington [place] [facility] 4 10:29:41 354100 iodine medicatio n Not available Not available Not available 09/30/2024 5933 RxNorm Brianna pennington [place] [facility] 5 15:46:41 252429 aspirin medicatio n Not available Not available Not available 09/30/2024 1191 RxNorm Brianna pennington [place] [facility] 15:46:48 Medications Name Sig Start Date [...] Response Arthritis Y GERD/Reflux Y Heart Attack (LA) Y Hyperlipidemia Y Thyroid Problems Y Hypertension Y Gynecological HistoryNo gynecological history recorded. Obstetrics History GPAL:G 0 P 0 0 0 0 Past Encounters Encounter ID Performer Location Encounter Start Date Encounter Closed Date Diagnosis/Indication Diagnosis SNOMED-CT Code Diagnosis ICD10 Code Diagnosis Note [id number] ELIANA LORENZANA [facility] [address] [address] 02/06/2024 10:09:46 02/06/2024 11:15:27 Sensorineural hearing loss of bilateral ears 182716476 H90.3 Audiologic al evaluation results:[facility] ear:{{Norm al auditory thresholds Normal sloping at [...] seal}} 3000 VANDANA REHMAN MD [facility] [address] [place] [address] 02/06/2024 10:09:46 02/06/2024 11:15:27 Unsteady when walking 72828522 R26.89 Patient referred for evaluation of dizziness [...] ear problem. I am referring her to AT for vestibular rehabilita tion therapy which may help with strengthen ing and coordinati on of the lower extremitie s. If symptoms worsen, would recommend neurology evaluation to assess for lower extremity neuropathy . Recommend strongly against the use of meclizine or other vestibular suppressan ts as this will certainly make her symptoms worse. Sensorineu ral hearing loss of bilateral ears 201077068 H90.3 Audiologic al evaluation results:[facility] ear:{{Norm [...] up for a hearing aid evaluation . [id number] CHIRS FREEMAN MD [facility] [address] [address] 09/30/2024 14:39:01 09/30/2024 15:53:55 Chronic cough 42124047 R05.3 Daughter reports chronic cough that was present prior to COVID but has been voice. I do not see any anatomical cause. Consider CT of sinus if sx persist. Vocal nodu les in adults 21507549 J38.2 Daughter reports voice is actually improved. There is small nodule on the right side. Speech is fluent. Daughter concerned about slurred speech Tracheomalacia 50768536 Q32.0 Sent by PCP here for management [...] Ayala Member ID Guarantor Name 02/06/2024 1 [facility] (MEDICARE REPLACEMENT/A DVANTAGE - HMO) [id number] Yaquelin Chavez [id number] Yaquelin Chavez 02/06/2024 1 [facility] (MEDICARE REPLACEMENT/A DVANTAGE - HMO) [id number] Yaquelin Chavez [id number] Yaquelin Chavez 09/30/2024 1 [facility] (MEDICARE REPLACEMENT/A DVANTAGE - HMO) [id number] Yaquelin Chavez [id number] Yaquelin Chavez Notes Date Note Type Note [...] lower extremity swelling lately. VANDANA REHMAN MD [address] [place] [address],[address], [address], [place] - [facility] 02/06/2024 11:18:17 09/30/2024 text/html cough since [...] scan showed tracheomalacia. CHRIS WARREN MD [address], [address], [facility] - [facility] 09/30/2024 17:13:25 OBGyn Episode No OBEpisode recorded.
--- OUTSIDE RECORDS SUMMARY | 2024-12-09 14:33 | XMS_ITS ---
Author Name CRISP Organization Unknown Encounters Encounter Type Encounter Reason Primary Diagnosis Location Date Ambulatory ST elevation (STEMI) myocardial infarction of unspecified site (CMS/HCC V24, CMS/HCC V28) ST elevation (STEMI) myocardial infarction of unspecified site (CMS/HCC V24, CMS/HCC V28) [facility] 12/07/[address] elevation (STEMI) myocardial infarction of unspecified site (CMS/HCC V24, CMS/HCC V28) ST elevation (STEMI) myocardial infarction of unspecified site (CMS/HCC V24, CMS/HCC V28) [facility] 12/03/[address] elevation (STEMI) myocardial infarction of unspecified site (CMS/HCC V24, CMS/HCC V28) ST elevation (STEMI) myocardial infarction of unspecified site (CMS/HCC V24, CMS/HCC V28) [facility] 12/02/[address] elevation (STEMI) myocardial infarction of unspecified site (CMS/HCC V24, CMS/HCC V28) ST elevation (STEMI) myocardial infarction of unspecified site (CMS/HCC V24, CMS/HCC V28) [facility] 11/30/[address] elevation (STEMI) myocardial infarction of unspecified site ST elevation (STEMI) myocardial infarction of unspecified site [facility] 11/26/[address] elevation (STEMI) myocardial infarction of unspecified site ST elevation (STEMI) myocardial infarction of unspecified site [facility] 11/25/[address] elevation (STEMI) myocardial infarction of unspecified site ST elevation (STEMI) myocardial infarction of unspecified site [facility] 11/23/[address] elevation (STEMI) myocardial infarction of unspecified site ST elevation (STEMI) myocardial infarction of unspecified site [facility] 11/19/[address] elevation (STEMI) myocardial infarction of unspecified site ST elevation (STEMI) myocardial infarction of unspecified site [facility] 11/18/[address] elevation (STEMI) myocardial infarction of unspecified site ST elevation (STEMI) myocardial infarction of unspecified site [facility] 11/16/[address] elevation (STEMI) myocardial infarction of unspecified site ST elevation (STEMI) myocardial infarction of unspecified site [facility] 11/12/[address] elevation (STEMI) myocardial infarction of unspecified site ST elevation (STEMI) myocardial infarction of unspecified site [facility] 11/11/[address] elevation (STEMI) myocardial infarction of unspecified site ST elevation (STEMI) myocardial infarction of unspecified site [facility] 11/10/2024 Care Team Organization Name Specialty Phone Email Start Date End Da josi [facility] 11/10/2024
--- OUTSIDE RECORDS SUMMARY | 2024-12-09 14:33 | XMS_ITS | Patient Health Record ---
Author Organization [facility] Address [address] [place] [address] [address] [place] [address] Care Team Providers Care Video Software Engineer Name Role Phone LUCILA CORDERO Primary Care Provider [phone] VanessaReid cravenpat Unavailable [phone] Onur Kaityotf Unavailable [phone] Allergies Allergen (clinical drug ingredient) Drug/Non Drug [...] Active Results Component Value Reference Range Notes Thyroid Panel-[id number] Reviewed date:05/02/2024 01:14:42 AM Interpretation: Performing Lab:[facility] Grossman Nicole [address], [address], [place], Phone - [phone], [facility] - [facility] Notes/Report: Thyroxine (T4) 7.8 4.5-12.0 ug/dL T3 Uptake 24 24-39 % Free Thyroxine Index 1.9 1.2-4.9 AST (SGOT)-[id number] Reviewed date:05/02/2024 01:15:26 AM Interpretation: Performing Lab:[facility]co[facility] Grossman [address], [address], [place], Phone - [phone], [facility] Notes/Report: AST (SGOT) 17 0-40 IU/L ALT (SGPT)-[id number] Reviewed date:05/02/2024 01:15:35 AM Interpretation: Performing Lab:[facility] Enma Garcia [address], [address], [place], Phone - [phone], [facility] [place] Notes/Report: ALT (SGPT) 20 0-32 IU/L Hepatitis B Surf Ab Quant-00 6530 Reviewed date:05/20/2024 03:59:30 PM Interpretation: Performing Lab:[facility]ha, En[address], [address], [place], Phone - [phone], [facility] [place] Notes/Report: Hepatitis B Surf Ab Quant <3.5 Immunity>10 mIU /mL Status of Immunity Anti-HBs Level Inconsistent with Immunity 0.0 - 10.0 Consistent with Immunity >10.0 Hep Be Ag-[id number] Reviewed date:05/20/2024 03:59:47 PM Interpretation: Performing Lab:[facility] Radha, [address], [address], [place], Phone - [phone], [facility] [place] Notes/Report: Hep Be Ag Negative Negative Hep B Core Ab, IgM-[id number] Reviewed date:05/02/2024 01:15:18 AM Interpretation: Performing Lab:Labcodelfina Garcia, [address], [address], [place], Phone - [phone], [facility] [place] Notes/Report: Hep B Core Ab, IgM Negative Negative Viral Hepatitis HBV, HCV-144 025 Reviewed date:05/02/2024 01:15:01 AM Interpretation: Performing Lab:Jacindadelfina Radha, [address], [address], [place], Phone - [phone], [facility] [place] Notes/Report: HBsAg Screen Negative Negative Hep B [...] other evidence exists to indicate HCV infection. TSH+Free [id number] Reviewed date:05/02/2024 01:14:51 AM Interpretation: Performing Lab:[facility], [address], [address], [place], Phone - [phone], Director - [facility] Notes/Report: TSH 0.526 0.450-4.500 uIU/mL T4,Free(Direct) 1.17 0.82-1.77 ng/dL Basic Metabolic Panel (7)-30 3758 Reviewed date:07/07/2024 03:16:45 PM Interpretation: Performing Lab:[facility] Cesar, [address], [place], Phone - [phone], Director - [place] Notes/Report: Glucose 97 70-99 mg/dL BUN 11 8-27 mg/dL Creatinine 1.02 0.57-1.00 mg/dL eGFR 57 >59 mL/min/1.73 BUN/Creatinine Ratio 11 12-28 Sodium 142 134-144 mmol/L Potassium 4.4 3.5-5.2 mmol/L Chloride 104 96-106 mmol/L Carbon Dioxide, Total 19 20-29 mmol/L Reason For Referral Reason Evaluation and manag ement Diagnosis 1 Gastro-esophageal re flux disease without esophagitis (K21.9) Referral Organization [facility] Referring Provider First Name LUCILA Referring Provider Last Name FEDERICA Referring Provider Speciality Internal edicine Referred Provider Specialty Gastroentero logy General Notes Referral faxed to [facility] Gastroenterology - Dept will call patient for scheduling.Rakan Latraya 04/01/2024 08:11:55 AM > Referral Priority Routine Reason Evaluation and manag ement Diagnosis 1 Unsteadiness on feet (R26.81) Referral Organization [facility] Referring Provider First Name LUCILA Referring Provider Last Name FEDERICA Referring Provider Speciality Internal edicine Referred Provider Specialty Physical The rapist General Notes Referral faxed to [facility] in [place]- Dept will call patient for scheduling.Rakan Latraya 04/01/2024 08:13:41 AM > Referral Priority Routine Reason Please evaluate and treat Diagnosis 1 Unsteadiness on feet (R26.81) Referral Organization [facility] Referring Provider First Name LUCILA Referring Provider Last Name FEDERICA Referring Provider Speciality Internal edicine Referred Provider Specialty Physical The rapist General Notes Referral faxed to [facility] at [phone] as requested by the patient. Please contact the patient to schedule an appt.Isabelle Kayla 04/01/2024 08:30:16 AM > Referral Priority Routine Reason cough post covid- Diagnosis 1 Cough (R05.9) Referral Organization [facility] Referring Provider First Name Sanjiv Referring Provider Last Name Onur Referred Provider Specialty Pulmonology General Notes [place] [facility] Yvonne Young Brittney 04/29/2024 03:37:25 PM > Referral Priority Routine Reason Evaluation and manag ement Diagnosis 1 Pain in right wrist (M25.531) Diagnosis 2 Pain in left wrist ( M25.532) Referral Organization [facility] Referring Provider First Name LUCILA Referring Provider Last Name [facility] Referring Provider Speciality Internal edcounts include 234 beds at the [facility] Referred Provider Specialty Occupational Therapy General Notes Referral sent to [facility] in [place]- Office will call patient for scheduling.Rakan Latraya 05/14/2024 12:24:23 PM > Referral Priority Routine Reason Evaluation and manag ement Diagnosis 1 Solitary pulmonary n odule (R91.1) Referral Organization [facility] Referring Provider First Name LUCILA Referring Provider Last Name FEDERICA Referring Provider Speciality Internal edicine Referred Provider Specialty Pulmonary Di seases General Notes URGENT Referral faxe d to [facility]. I spoke with Lana who states they are not contracted with the patient's insurance. Isabelle Kayla 05/18/2024 02:16:36 PM >, Urgent referral faxed to [facility]. They are closed today so I could not call to schedule an appt. Isabelle Kayla 05/18/2024 02:23:13 PM > Referral Priority Urgent Reason THYROID NODULE - CT done at [facility] Diagnosis 1 Nontoxic single thyr oid nodule (E04.1) Referral Organization [facility] Referring Provider First Name LUCILA Referring Provider Last Name [facility] Referring Provider Speciality Internal edcounts include 234 beds at the [facility] Referred Provider Specialty Intervention al Radiology General Notes Referral sent to [facility] - Office will call patient for scheduling.Rakan Latraya 05/21/2024 10:48:26 AM > Referral Priority Routine Reason Evaluation and manag ement Diagnosis 1 Pain in unspecified hand (M79.643) Referral Organization [facility] Referring Provider First Name GAYTAN Referring Provider Last Name CONSUELO Referring Provider Speciality Internal edicine Referred Provider Specialty Hand Surgery General Notes Referral faxed to [facility] - Office will call patient for scheduling., Maday Bledsoe 06/23/2024 01:03:08 PM > Referral Priority Routine Reason please evaluate and treat Diagnosis 1 Slurred speech (R47. 81) Referral Organization [facility] Referring Provider First Name Sanjiv Referring Provider Last Name Onur Referred Provider Specialty Speech and l samanta therapist Clinical Notes Faxed to [facility], they will contact ptDavis Brittney 07/02/2024 09:38:23 AM > Referral Priority Routine Reason Please evaluate and treat Diagnosis 1 Solitary pulmonary n odule (R91.1) Referral Organization [facility] Referring Provider First Name Sanjiv Referring Provider Last Name Onur Referred Provider Specialty Pulmonary Di seases General Notes Referral faxed to [facility]. The office will call the patient to schedule., Donna Walton 07/07/2024 03:32:16 PM > Referral Priority Urgent Reason Dr. 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) Referral Organization [facility] Referring Provider First Name Georgi Referring Provider [...] tablet daily for 5 days 04/29/2024 Not-Taking Fluticasone Furoate-Vilanterol 100-25 MCG/ACT 1 puff Inhalation Once a day for 30 days 05/15/2024 Not-Taking Nystatin 438013 UNIT/GM 1 application Externally Twice a day [...] a day for 30 days 05/21/2024 Not-Taking Aspirin 81 MG 1 tablet Orally Once a day for 30 days Active Benzonatate 200 MG 1 capsule Orally Thr ee times a day for 30 days 09/09/2024 Active Pantoprazole Sodium 40 MG 1 tablet Orall y Once a day for 90 days Active Trelegy Ellipta 200-62.5-25 MCG/ACT 1 puff Inhalation Once a day for 30 days 07/22/2024 Active Metoprolol Succinate ER 50 MG 1 tablet Orally Once a day for 30 days Active Atorvastatin Calcium 80 MG 1 tablet Oral ly Once a day for 30 days Active Clopidogrel Bisulfate 75 MG 1 tablet Orally Once a day for 30 days Active Breo Ellipta 200-25 MCG/ACT INHALE 1 PUFF INTO THE LUNGS EVERY DAY for 30 days Active Social History Tobacco Use: Social History Observation Description Date Details (start date - stop date) Never Smoker NA - NA Tobacco Use/Smoking Question Answer Notes Are you a nonsmoker Problems Problem Type SNOMED Code ICD Code Onset Dates Problem Status W/U Status Risk Notes Problem Non-toxic single thyroid nodule (427046260) Nontoxic single thyroid nodule (E04.1) Active confirmed Problem Non-toxic multinodular goiter (71890738) Nontoxic multinodular goiter (E04.2) Active confirmed Problem Mixed hyperlipidemia (607752726) Mixed hyperlipidemia (E78.2) Active confirmed Problem Essential hypertension (51121998) Essential (primary) hypertension (I10) Active confirmed Problem Gastro-esophageal reflux disease without esophagitis (762328872) Gastro-esophageal reflux disease without esophagitis (K21.9) Active confirmed Problem Diaphragmatic hernia (07049871) Diaphragmatic hernia without obstruction or gangrene (K44.9) Active confirmed Problem Diverticulitis of colon (476696774) Diverticulitis of large intestine without perforation or abscess without bleeding (K57.32) Active confirmed Problem Fatty liver (011074484) Fatty (change of) liver, not elsewhere classified (K76.0) Active confirmed Problem Osteoarthritis (413265044) Polyosteoarthriti s, unspecified (M15.9) Active confirmed Problem 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) Active confirmed Problem Abnormal gait (61290999) Unsteadiness on feet (R26.81) Active confirmed Problem Abnormal gait (79160202) Other abnormalities of gait and mobility (R26.89) Active confirmed Problem Solitary pulmonary nodule (111310883) Solitary pulmonary nodule (R91.1) Active confirmed Problem Imaging result abnormal (612304029) Abnormal findings on diagnostic imaging of other specified body structures (R93.89) Active confirmed Problem 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) Plmg-CUMKS-21 condition (B94.8) Active confirmed Problem Chronic htco-HJRYI-18 syndrome (disorder) (1866792219) Mcrt-BBTHM-78 syndrome (B94.8) Active confirmed Problem 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, 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) Active confirmed Vital Signs Heart Rate 72 /min 10/29/2024 Temperature 96.5 degrees Fahrenheit 10/29/2024 Blood pressure diastolic 80 mm Hg 10/29/2024 Oximetry 95 % 10/29/2024 Height 4'1'' in 10/29/2024 Blood pressure systolic 130 mm Hg 10/29/2024 Weight 204.8 lbs 10/29/2024 BMI 59.96 kg/m2 10/29/2024 Encounters Encounter Location Date Provider Diagnosis [address] [place] [address] 03/31/2024 GAYTAN FEDERICAYvonne Gastro-esophageal reflux disease without esophagitis K21.9 ; Mixed hyperlipidemia E78.2 ; Polyosteoarthritis, unspecified M15.9 ; Diverticulitis of large intestine without perforation or abscess without bleeding K57.32 and Cough, unspecified R05.[address] [place] [address] 04/29/2024 [facility] discharge follow-up Z09 ; Abnormal findings on diagnostic imaging of other specified body structures R93.89 ; Cough R05.9 ; Nontoxic multinodular goiter E04.2 ; Fatty (change of) liver, not elsewhere classified K76.0 and Diaphragmatic hernia without obstruction or gangrene K44.[address] [address] 05/15/2024 LUCILA STALLWORTHYvonne Cbon-GMMUY-87 syndro me B94.8 ; Cough, unspecified R05.9 ; Solitary pulmonary nodule R91.1 ; Nontoxic single thyroid nodule E04.1 ; Other abnormalities of gait and mobility R26.89 and Pain in right wrist M25.[address] [address] 06/30/2024 [facility] Solitary pulmonary nodule R91.1 ; Nontoxic single thyroid nodule E04.1 ; Other abnormalities of gait and mobility R26.89 ; Pain in right wrist M25.531 ; Slurred speech R47.81 ; Edema, unspecified R60.9 ; Essential (primary) hypertension I10 and Gastro-esophageal reflux disease without esophagitis K21.[address] [place] [address] 07/07/2024 [facility] Essential (primary) hypertension I10 ; Cough R05.9 and Gastro-esophageal reflux disease without esophagitis K21.9 [facility] [address] [place] [address] 07/22/2024 Ghadeer Mazloum Essential (primary) hypertension I10 and Cough, unspecified R05.9 [facility] [address] [place] [address] 09/03/2024 [facility] discharge follow-up Z09 [facility] [address] [place] [address] 10/29/2024 [facility] Slurred speech R47.8 1 ; Cough, unspecified R05.9 and Post COVID-19 condition, unspecified U09.9 [facility] [address] [facility] [address] [place] [address] 03/31/2024 [facility] Cough, unspecified R05.9 [facility] [address] [place] [address] 04/01/2024 [facility] [address] [facility] [address] [place] [address] 04/17/2024 [facility] [address] [facility] [address] [place] [address] 04/28/2024 Ghadeer Ganeshloum [facility] [address] [facility] [address] [place] [address] 05/11/2024 [facility] [address] [facility] [address] [facility] [address] [place] [address] 05/15/2024 [facility] [address] [facility] [address] [place] [address] 05/20/2024 Ghadeer Mazloum Other specified abnormal immunological findings in serum R76.8 [facility] [address] [facility] [address] [place] [address] 06/22/2024 [facility] [address] [facility] [address] [facility] [address] [place] [address] 07/03/[address] [place] [address] 07/07/2024 Ghadeer Mazloum Nontoxic multinodula r goiter E04.2 [facility] [address] [place] [address] 07/09/2024 Ghadeer Mazloum Nontoxic multinodula r goiter E04.2 [facility] [address] [place] [address] 07/13/2024 [facility] [address] [place] [address] 07/14/2024 [facility] [address] [place] [address] 08/27/2024 [facility] [address] [place] [address] 08/28/2024 [facility] [address] [place] [address] 09/09/2024 [facility] [address] [place] [address] 09/16/2024 [facility] [address] [place] [address] 09/24/2024 [facility] [address] [place] [address] 10/23/2024 [facility] [address] [place] [address] 10/28/2024 [facility] [address] [place] [address] 10/28/2024 [facility] [address] [place] [address] 10/29/2024 [facility] [address] [place] [address] 12/01/2024 [facility] [address] [place] [address] 12/01/2024 [facility] [address] [place] [address] 12/04/2024 [facility] [address] [place] [address] 05/01/2024 [facility] [address] [place] [address] 05/05/2024 [facility] [address] [place] [address] 05/16/2024 [facility] [address] [place] [address] 05/18/2024 [facility] Cough R05.9 [facility] [address] [place] [address] 05/20/2024 [facility] [address] [place] [address] 05/21/2024 [facility] [address] [place] [address] 05/21/2024 Sanjiv Mohr Yhok-OUKNC-41 condit ion B94.8 [facility] [address] [place] [address] 06/09/2024 [facility] [address] [place] [address] 06/24/2024 [facility] [address] [place] [address] 07/02/2024 [facility] [address] [place] [address] 07/07/2024 [facility] [address] [place] [address] 07/10/2024 [facility] [address] [place] [address] [facility]/16[facility] [address] [place] [address] 07/23/2024 GAYTAN GUL Cough R05.9 and Gastro-esophageal reflux disease without esophagitis K21.9 [facility] [address] [place] [address] 07/24/2024 [facility] [address] [place] [address] 08/04/2024 GAYTAN GUL Essential (primary) hypertension I10 [facility] [address] [place] [address] 08/05/2024 GAYTAN GUL Essential (primary) hypertension I10 [facility] [address] [place] [address] 08/14/2024 [facility] [address] [place] [address] 08/14/2024 GAYTAN GUL Cough R05.9 [facility] [address] [place] [address] 08/16/2024 [facility] [address] [place] [address] 09/04/2024 GAYTAN L [facility] [address] [place] [address] 09/08/2024 GAYTAN [facility] [address] [place] [address] 09/09/2024 [facility] [address] [place] [address] 09/16/2024 [facility] [address] [place] [address] 09/18/[address] [place] [address] 09/25/[address] [place] [address] 09/25/[address] [place] [address] 10/23/[address] [place] [address] 11/06/[address] [place] [address] 11/26/2024 GAYTAN FEDERICAL Cough R05.[address] [place] [address] 11/27/2024 GAYTAN [facility] Cough, unspecified R05.[address] [place] [address] 12/01/[address] [place] [address] 12/02/2024 GAYTAN GU Assessments Encounter Date Diagnosis (ICD Code) Assessment [...] this note under HIPAA compliance and under [place] law mandated for scribe services. Patient aware [...] this note under HIPAA compliance and under [place] law mandated for scribe services. Patient aware [...] patient but was available upon request 05/15/2024 Mcbq-PMOJB-01 syndrome (ICD-10 - B94.8) Yanique is 73 years old lady with acid reflux, fatty liver, mixed type edema. She was recently hospitalized at [facility] for coronavirus 19 infection. Today she [...] be given referral to Dr. Abebe at [facility] pulmonology Thyroid nodule. She will be [...] Patient located in a home setting in [facility] [place] during this telemedicine visit. Provider located at [facility] in [place] in [facility] [place] 05/15/2024 Cough, unspecified (ICD-10 - R05.9) Yanique is 73 years old lady with acid reflux, fatty liver, mixed type edema. She was recently hospitalized at [facility] for coronavirus 19 infection. Today she [...] be given referral to Dr. Abebe at [facility] pulmonology Thyroid nodule. She will be [...] Patient located in a home setting in [facility] [place] [facility] during this telemedicine visit. Provider located at [facility] in [place] in [place] 05/18/2024 Cough (ICD-10 - R05.9) 05/20/2024 Other specified abnormal immunological findings in serum (ICD-10 - R76.8) 05/21/2024 Faib-GULGS-12 condition (ICD-10 - B94.8) 03/31/2024 Cough, unspecified (ICD-10 - R05.9) 07/23/2024 Cough (ICD-10 - R05.9) 08/04/2024 Essential (primary) hypertension (ICD-10 - I10) 08/05/2024 Essential (primary) hypertension (ICD-10 - I10) 08/14/2024 Cough (ICD-10 - R05.9) 09/03/2024 Hospital discharge follow-up (ICD-10 - Z09) 74-year-old lady with history of hypertension hyperlipidemia GERD post Kober syndrome hepatic steatosis who was admitted to [facility] on 08/16/24 for management of cough and shortness of breath she was found to have a ST elevation SD patient is here for a post hospital discharge, she was discharged on 08/23/24. ST elevation SD status post stent placement mid RCA DS, [...] to be following up with pulmonology at [facility] however the daughter told me that they are going to Dr. Amos pulmonology in [place]. Thyroid nodule she has history of subclinical hypothyroidism, in the past there was a question of a biopsy, at the time this was not followed up as patient went to the hospital and had an ST elevation SD. Currently she is on aspirin and Plavix. [...] of post coitus syndrome, hypertension, ST elevation SD status post stent, chronic cough tracheomalacia is [...] wrap's and elevation History of ST elevation SD status post stent placement mid RCA DS, left main is 45% stenosis but medically treated. Patient was seen by Dr. Santos she will follow up as an outpatient with district cardiology in 4-6 weeks. Continue with aspirin, continue Plavix 75 [place] daily atorvastatin 80 mg daily and metoprolol Lung nodulet followed by Dr. Amos pulmonology in [place] .Thyroid nodule she has history of subclinical [...] for follow-up. She was recently hospitalized at [facility] for coronavirus 19 infection. Today she [...] compare. She will be given referral to [facility] pulmonology Thyroid nodule. - Incidental finding [...] the patient but was available upon request 11/26/2024 Cough (ICD-10 - R05.9) 11/27/2024 Cough, unspecified (ICD-10 - R05.9) 07/07/2024 Gastro-esophageal reflux disease without esophagitis (ICD-10 [...] of post coitus syndrome, hypertension, ST elevation SD status post stent, chronic cough tracheomalacia is [...] wrap's and elevation History of ST elevation SD status post stent placement mid RCA DS, left main is 45% stenosis but medically treated. Patient was seen by Dr. Santos she will follow up as an outpatient with district cardiology in 4-6 weeks. Continue with aspirin, continue Plavix 75 [place] daily atorvastatin 80 mg daily and metoprolol Lung nodulet followed by Dr. Amos pulmonology in [place] .Thyroid nodule she has history of subclinical hypothyroidism, multiple questions were answered today, spoke to patient's and daughter at length 05/15/2024 Solitary pulmonary nodule (ICD-10 - R91.1) Yanique is 73 years old lady with acid reflux, fatty liver, mixed type edema. She was recently hospitalized at [facility] for coronavirus 19 infection. Today she [...] be given referral to Dr. Abebe at [facility] pulmonology Thyroid nodule. She will be [...] Patient located in a home setting in [facility] during this telemedicine visit. Provider located at [facility] in [place] in [facility] 06/30/2024 Nontoxic single thyroid nodule (ICD-10 - E04.1) Yanique is 74 years old lady with acid reflux, fatty liver, mixed type edema is here for follow-up. She was recently hospitalized at [facility] for coronavirus 19 infection. Today she [...] compare. She will be given referral to [facility] pulmonology Thyroid nodule. - Incidental finding [...] this note under HIPAA compliance and under [place] law mandated for scribe services. Patient aware [...] this note under HIPAA compliance and under [place] law mandated for scribe services. Patient aware [...] type edema. She was recently hospitalized at [facility] for coronavirus 19 infection. Today she [...] be given referral to Dr. Abebe at [facility] pulmonology Thyroid nodule. She will be [...] Patient located in a home setting in [facility] during this telemedicine visit. Provider located at [facility] in [facility] 06/30/2024 Other abnormalities of gait and mobility (ICD-10 - R26.89) Yanique is 74 years old lady with acid reflux, fatty liver, mixed type edema is here for follow-up. She was recently hospitalized at [facility] for coronavirus 19 infection. Today she [...] compare. She will be given referral to [facility] pulmonology Thyroid nodule. - Incidental finding [...] of post coitus syndrome, hypertension, ST elevation SD status post stent, chronic cough tracheomalacia is [...] out of bed ambulation we also recommended Anm wrap's and elevation History of ST elevation SD status post stent placement mid RCA DS, left main is 45% stenosis but medically treated. Patient was seen by Dr. Santos she will follow up as an outpatient with district cardiology in 4-6 weeks. Continue with aspirin, continue Plavix 75 Fouzia daily atorvastatin 80 mg daily and metoprolol Lung nodulet followed by Dr. Amos pulmonology in [place] .Thyroid nodule she has history of subclinical [...] type edema. She was recently hospitalized at [facility] for coronavirus 19 infection. Today she [...] be given referral to Dr. Abebe at [facility] pulmonology Thyroid nodule. She will be [...] Patient located in a home setting in [facility] during this telemedicine visit. Provider located at [facility] in [place] in [facility] 06/30/2024 Pain in right wrist (ICD-10 - M25.531) Yanique is 74 years old lady with acid reflux, fatty liver, mixed type edema is here for follow-up. She was recently hospitalized at [facility] for coronavirus 19 infection. Today she [...] compare. She will be given referral to [facility] pulmonology Thyroid nodule. - Incidental finding [...] this note under HIPAA compliance and under [place] law mandated for scribe services. Patient aware [...] type edema. She was recently hospitalized at [facility] for coronavirus 19 infection. Today she [...] be given referral to Dr. Abebe at [facility] pulmonology Thyroid nodule. She will be [...] Patient located in a home setting in [facility] during this telemedicine visit. Provider located at [facility] in [place] in [facility] 06/30/2024 Slurred speech (ICD-10 - R47.81) Yanique is 74 years old lady with acid reflux, fatty liver, mixed type edema is here for follow-up. She was recently hospitalized at [facility] for coronavirus 19 infection. Today she [...] compare. She will be given referral to [facility] pulmonology Thyroid nodule. - Incidental finding [...] for follow-up. She was recently hospitalized at [facility] for coronavirus 19 infection. Today she [...] compare. She will be given referral to [facility] pulmonology Thyroid nodule. - Incidental finding [...] 06/30/2024 Essential (primary) hypertension (ICD-10 - I10) Yanique is 74 years old lady with acid reflux, fatty liver, mixed type edema is here for follow-up. She was recently hospitalized at [facility] for coronavirus 19 infection. Today she [...] compare. She will be given referral to [facility] pulmonology Thyroid nodule. - Incidental finding [...] for follow-up. She was recently hospitalized at [facility] for coronavirus 19 infection. Today she [...] compare. She will be given referral to [facility] pulmonology Thyroid nodule. - Incidental finding [...] Biopsy Thyroid-Rad Xray: Chest-Standard Frontal & Lat 04/29 Xray: Chest-Standard Frontal & Lat 06/30 Hepatitis B Surf Ab Quant-[id number] Hep B Core Ab, [id number] 04/29/2024 Next Appt Details Provider Name:Georgi Tierney, 0 12/22/2024 11:30:00 AM, [address] [place] [address], [phone], Insurance Providers Payer Name Payer Address Payer Phone Subscriber Number Group Number Insured Name Patient Relationship to Insured Coverage Start Date Coverage End Date [employer] MEDICARE COMPLETE [address] [address] [place] [phone] [id number] JUAN YOUSSEF Self - patient is the insured Medical (General) History Medical History History ICD Code GERD arthritis, bilateral hand/thumb diverticulitis Surgical History Surgery Date(Month/Year) right total knee replacement left rotator cuff repair, left bicep mus dana -work related
== END 2024-12-09 12:35 | disposition home or self-care (01) ==
LOC: HO.CT 12:34
PROVIDERS: PCP Hospitalist; Visit Provider Hospitalist
DX: R91.1 Solitary pulmonary nodule (principal)
CPT/HCPCS: 71250

== ENCOUNTER → 2024-12-09 12:36 | Outpatient (BNV) | payer MEDICARE, SELFPAY | PROVIDERS: PCP Hospitalist; Visit Provider Radiology Diagnostic Radiology | DX: R91.1 Solitary pulmonary nodule (principal) | CPT/HCPCS: 71250 ==

== ENCOUNTER 2024-12-29 10:56 | Outpatient (AMB) | payer MEDICARE, SELFPAY ==
--- NOTE | 2024-12-29 11:01 | A.OFFVIS_ITS ---
Vital Signs 12/29/24 11:02 Height 5 ft 1 in Weight 197 lb 5.019 oz BMI 37.3 BP 112/66 Blood Pressure Location Rt brachial Position Sitting Pulse 74 Pulse Source Pulse Oximeter Pulse Oximetry (%) 96 Oxygen Delivery Method Room Air Intake Visit Reasons: Cough Allergies aspirin Allergy (Verified 12/29/24 11:05) bleeding iodine Allergy (Verified 12/29/24 11:05) Nausea and Vomiting Penicillins Allergy (Verified 12/29/24 11:05) hives Sulfa (Sulfonamide Antibiotics) Allergy (Verified 12/29/24 11:05) hives HPI Comments Details: The patient is a 74 year woman with a known history of worsening cough. Apparently she was in his usual state health until sometime in April when she started developing significant weakness to the point that she could not even stand. EMS was called to the scene and she was brought to the [facility] ED where she was briefly admitted. The patient did have a a full workup and finally discovered that she had COVID-19. The patient did have a CT scan of the chest during that admission. Initially noncontrast. I did personally reviewed. It appears that she does have enlarged thyroid gland left more than right. In addition to that she has a very narrow trachea with a crescent panchal signs suggesting some degree of proximal tracheomalacia. The resident mid trachea and distal trachea appeared to be completely fine. She also has a 1.3 cm elongated nodule in the right middle lobe area. The next day she did have a CTA that ruled out that this was a vascular structure. Therefore was recommended she have a CT scan 6 months from prior just to make sure to follow it up. The patient has not had any CT scans previously to review. Ultimately she started developing a significant cough after that. The cough is persistent. Is for the most part nonproductive although sometimes she does have some chest congestion. She has had significant laryngospasm that occur after the coughing spells. And sometimes she has loses her breath. She was placed on Breo and also given a course few courses of prednisone. In the Breo she seems to be tolerating okay she also has been using her rescue inhaler often to the point that she tends to be little tachycardic. She is also having some daytime drowsiness. The patient has an elevated [place] score 07/26. Her does state that she has significant snoring. Therefore sleep study will be helpful as well. We did teach her how to use a nebulizer in the office. I do believe a nebulizer will help her with mucus clearance. An Acapella valve will also be requested for chest PT. will provide her with cough suppressant therapy to keep her from coughing to minimize further injury to her larynx and also proximal trachea. 07/18/2025 the patient is here for a pulmonary follow-up visit. Overall she is feeling better. She is using the nebulizer and also the CPT with a Acapella valve. This has been affecting beneficial. She is also using the inhaler. Her cough is overall better. She is trying the cough technique. She is also using the cough suppressant. She does have evidence of tracheomalacia. In addition to that she does have daytime drowsiness. Her [place] score is elevated 07/26. She did have a sleep study in demonstrated significant sleep apnea. Therefore based on her cardiovascular risk factors with heart disease and has significant daytime drowsiness will be important for her to start CPAP therapy. I briefly spoke to her about it and will go ahead and send a script to the local DME comp any in order to provide with the supplies in the expertise. The patient will come back in 3-4 months. I which point the patient will also need a CT scan to follow-up with the pulmonary nodules that she had before. She prefers to have this at [facility]. 10/30/2024 the patient is here for a pulmonary follow-up visit. She started the CPAP as she has been having hard time tolerating it. Will bring back and forth trying to find her a pressure that she can not tolerate. But her coughing gets worse when she is exhaling and therefore has a hard time. They are wondering a BiPAP but she is already on the lowest pressure 4 cm water so therefore BiPAP would not really play a role. She did have the ERS activated but that did not help either. She has a very sensitive cough right now and therefore would have to control the cough before trying it again. She has responded well to the Tessalon Perles that does not keep her from coughing at nighttime. Therefore will have her try codeine cough syrup will give her a small dose and see if she can tolerate it safely in his she can that we can consider using at nighttime along with her CPAP. She also apparently needs a CT scan of the chest and she has a hard time lying flat. I did have lay flat in the office and she did have some coughing episodes but at least her oxygen and her heart rate were stable. The family has been concerned because she does have some lower extremity edema. This is more than before. Will go ahead and request blood work including a BNP especially with a history heart disease. In addition to this the patient does have a hiatal hernia based on the CT scan that we did review. The patient is already sleeping elevated. She is already stopping her eating at 07:00 o'clock at nighttime and she has has small meals. She has some underlying neurological issues going on in her primary care doctor does wanting to get an MR of the brain but again she has a hard time lying flat so will have to wait for her cough and shortness of breath symptoms to improve before undergoing an MRI. We did again look at the CT scan of the chest that she had a [facility] demonstrating the nodular density in the right middle lobe. And she does have a scheduled CT scan for early December which hopefully the cough is better by then we can have that CT scan done. 12/29/2024 the patient is here for a pulmonary follow-up visit. Overall she is doing okay. She could not tolerate the CPAP and therefore decided to return it. Operative did not want it back on she had discharge order and I did put 1 in. I did call the company as well to make sure that they will metal pickling equipment operator her machine or she can deliver. She did not tolerated because of worsening cough. In the meantime the patient has cough still persists although slightly better. She did try the codeine cough syrup which she did tolerate by though she sometimes a little unsteady on her feet and she does not like that feeling. The patient also underwent a CT scan of the chest I personally reviewed with them. Her lung parenchyma appears to be better her tracheal also appears to be better she does have that goiter. Appears to be about the same. She does have the pulmonary nodule in the right middle lobe which is about the same size. It is all reassuring although she does have mitral a mild hiatal hernia. We did talk about reflux disease being a problem especially with chronic cough and also tracheomalacia. The patient will undergo a barium swallow whenever able. She is participating in cardiac rehab. We also talked about briefly about a bronchoscopy to better clear the mucus burden her lungs and to address the question of tracheomalacia. At this point she is doing cardiac rehab and after rehab we can always consider that. If she develops worsening chest congestion we can always consider a little earlier. She is developing a rash and she is actually causing significant sores on her scans. She can try some Claritin to see if this provides some relief. She will talk to her primary care doctor as a potential allergies. We did do some regular allergy testing we did not find any normal or common [place] allergy being elevated. 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 Chronic cough Social History Patient Tobacco Use Status: Never used Tobacco Review of Systems Const Reports daytime sleepiness and Reports snoring Eyes Reports no additional complaints ENT Denies change in voice Card Denies chest pain and Reports leg edema Resp Reports cough, Reports snoring and Denies wheezing GI Reports no additional complaints Musc Reports myalgias Skin/Breast Denies rash Endo Reports no additional complaints Ricki/Lymph Reports no additional complaints Aller/Immun Denies wheezing Physical Exam Vital Signs: Last Vital Signs Pulse 74 12/29/24 11:02 BP 112/66 12/29/24 11:02 Pulse Ox 96 12/29/24 11:02 Oxygen Delivery Method Room Air 12/29/24 11:02 BMI result Body Mass Index 37.3 Const General: comfortable HEENT Head: Yes normocephalic Neck Neck: Yes supple Chest Chest palpation & inspection: normal inspection of the chest Resp Effort & Inspection: normal respiratory effort and Actively coughing Auscultation: diminished lung sounds Cardio Heart sounds: S1 normal heart sound present and S2 normal heart sound present GI Palpation (GI): Soft to palpation Skin General skin exam: no rashes or lesions noted Extrem General: No cyanosis Results Reviewed Results Reviewed: personally reviewed CT chest 10/2024 and 2023 with stable 8mm RML nodule, Trachea is better, Goiter present Assessment & Plan Assessment & Plan (1) Chronic cough: Code(s): R05.3 - Chronic cough Category: Medical (2) 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, unspecified Category: Medical (3) Tracheomalacia: Comment: proximal trachea Code(s): J39.8 - Other specified diseases of upper respiratory tract Category: Medical (4) Pulmonary nodule: Comment: RML 1.3cm, not vascular anomaly based on CTA Code(s): R91.1 - Solitary pulmonary nodule Category: Medical (5) VIOLETTE (obstructive sleep apnea): Code(s): G47.33 - Obstructive sleep apnea (adult) (pediatric) Category: Medical (6) Allergy: Code(s): T78.40XA - Allergy, unspecified, initial encounter Category: Medical Qualifiers: Encounter type: initial encounter Qualified Code(s): T78.40XA - Allergy, unspecified, initial encounter (7) CHF (congestive heart failure): Comment: LE edema, basilar crackles, elevated BNP Code(s): I50.9 - Heart failure, unspecified Category: Medical Qualifiers: Heart failure type: other Qualified Code(s): I50.9 - Heart failure, unspecified Plan Breo daily nebulizer with xopenex BID CPT with acapella valve BID cough medicine: codeine cough medicine as needed D/C PAP therapy, did not tolerate Barium swallow reflux diet sleep with HOB elevated Consider bronchosocpy Antihistamines as needed for rash F/U 3-4 months Medications: New loratadine (Claritin) 10 mg PO DAILY 30 tabs 11RF 30 days J30.2 - Other seasonal allergic rhinitis, J45.909 - Unspecified asthma, uncomplicated Coding Level of Care Code Est Pt Level 5 (42955) Complex EM visit Add On G2211 Diagnoses Chronic cough R05.3 [id number] syndrome U09.9 Tracheomalacia J39.8 Pulmonary nodule R91.1 VIOLETTE (obstructive sleep apnea) G47.33 Allergy, initial encounter T78.40XA Encounter type: initial encounter Other congestive heart failure I50.9 Heart failure type: other Time Spent (min) 45
[2024-12-29 11:02] VITALS: BP 112/66; PULSE 74; O2SAT 96; BMI 37.3
--- OUTSIDE RECORDS SUMMARY | 2024-12-29 12:41 | XMS_ITS ---
Author Organization [facility] Address [address] [place] [address] [address] [place] [address] Care Team Providers Care Air Transportation Provider Name Role Phone LUCILA CORDERO Primary Care Provider REASON FOR VISIT Pantoprazole clarification Medications Medication SIG (Take, Route, Frequency, Duration) Notes Start Date End Date Status Pantoprazole Sodium 40 MG 1 tablet on an empty stomach Orally twice a day for 30 days Active Encounters Encounter Location Date Provider Diagnosis [facility] 294 [facility] [address] [place] [address] 12/02/2024 LUCILA CORDERO Plan Of Treatment Medication Medication Name Sig Start Date Stop Date Notes Pantoprazole Sodium 40 MG 1 tablet on an empty stomach Orally twice a day for 30 days Next Appt Details Provider Name:LUCILA CORDERO , 01/12/2025 10:45:00 AM, [address] [place] [address], [place], [address], Progress Notes * MAMTA YOUSSEFOB: (74 yo F)Acc No.[id number]:12/02/2024 Patient:?JUAN YOUSSEF :1950???Age:74 Y???Sex:Female Phone: Address:[address] [place] [id number] * Refills? Refill Pantoprazole Sodium Tablet Delayed Release, 40 MG, Orally, 60 Tablet, 1 tablet on an empty stomach, twice a day, 30 days, Refills=5 * true * Date:? Generated for Printi vickie/Senia/eTransmitting on:?12/29/2024 12:41 PM EDT
--- OUTSIDE RECORDS SUMMARY | 2024-12-29 12:41 | XMS_ITS | Clinical Summary ---
Author Organization [address] [place] [address] Dr Pereira Address [address] [place] [address] Phone Care Team Providers Care Press Tender Name Role Phone Valentin Levi MD Primary Care Provider Surgical History Surgery Date Site/Laterality Comments TOTAL [...] Care Team (Late st Contact Info) Description 12/30/2024 11:00 AM EDT Clinical Support Cardiac and Pul[facility] Rehabilitation - Charity Zuluaga [address] [place] [address] 12/31/2024 11:00 AM EDT Clinical Support Cardiac and Pul[facility] Rehabilitation - Charity Zuluaga [address] [place] [address] 01/04/2025 11:00 AM EDT Clinical Support Cardiac and Pul[facility] Rehabilitation - Charity Zuluaga [address] [place] [address] 01/06/2025 11:00 AM EDT Clinical Support Cardiac and Pul[facility] - Charity Zuluaga [address] [place] [address] 01/07/2025 11:00 AM EDT Clinical Support Cardiac and Pul[facility] Rehabilitation - Charity Zuluaga [address] [place] [address] 01/11/2025 11:00 AM EDT Clinical Support Cardiac and Pulmonary Rehabilitation - Charity Zuluaga [address] [place] [address] Health Maintenance Due Date Last Done Comments [...] (2 - 2023-2 5 season) 2024 02/13/2021 RSV Immunization Adult Patients (1 - 1-dose 75+ series) 2024 Influenza Vaccine (Season Ended) 2025 Osteoporosis Screening (Bone Density Screening) 04/27/2029 04/27/2019 [...] age to complete this topic Meningococcal B Vaccine Aged Out No l onger eligible based on patient's age to complete [...] classified as having normal bone density. [facility] Department of Internal Medicine recommends using National [...] the World Health Organization criteria, Yaquelin Chavez shouldbe classified as having normal bone density. [facility] Department of Internal Medicine recommendsusing National Osteoporosis [...] fracture risk by FRAX. Raquel Cheng MD IMG DXA PROCEDURES Final Result from Last 3 Months or Most Recently Relevant to Health Maintenance Insurance [employer] MEDICARE Care Teams Press Tender Relationship Specialty Start Date End Date Valentin Levi MD [address] [place] [address] PCP - General 05/26/24
--- OUTSIDE RECORDS SUMMARY | 2024-12-29 12:42 | XMS_ITS ---
Author Organization [facility] Address [address] [place] [address] Care Team Providers Care Tin Roofer Name Role Phone LUCILA CORDERO Primary Care Provider REASON FOR VISIT Med Review Req Encounters Encounter Location Date Provider Diagnosis [address] [address] 12/04/2024 LUCILA CORDERO Plan Of Treatment Next Appt Details Provider Name:LUCILA CORDERO , 01/12/2025 10:45:00 AM, [address] [place] [address], [place], [address], Progress Notes * MAMTA YOUSSEFOB: 9 (74 yo F)Acc No.[id number]:12/04/2024 Patient:?JUAN YOUSSEF :1950???Age:74 Y???Sex:Female Phone: Address:[address] [facility], [place] [address] * true * Date:? Generated for Printi ng/Faanng/eTransmitting on:?12/29/2024 12:42 PM EDT
--- OUTSIDE RECORDS SUMMARY | 2024-12-29 12:42 | XMS_ITS | Data Portability ---
Author Organization [place] [facility], [facility] Address [address] [facility] [address] [place] [address] Care Team Providers Care Intelligence Analyst Name Role Phone CARA FELTON Primary Care [...] . Referral speech therapy referral 2024 025 [facility], [address] [place] [address], [address] Floor, [place], [address], 5 11:03:59 Procedures None recorded . 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 Procedures Surgical History Date Name Laterality Status Provider Name and Address Organization Details Recorded Time 09/30/19 25 Fiberoptic Laryngoscopy (Comprehensive) completed CHRIS WARREN MD [address], [address], [place] - [facility] 09/30/2024 15:44:06 02/06/20 24 Comp Audio with Tymps (96628 & 85002) completed ELIANA LORENZANA [address], [address], [place] - [facility] 02/06/2024 10:34:07 total knee replacement completed Brianna Daniels [place] - [facility] 02/06/2024 10:37:01 procedure on shoulder completed Brianna aDniels [place] - [facility] 02/06/2024 10:37:09 complete repair of rotator cuff completed Brianna Daniels [place] - [facility] 02/06/2024 10:37:40 procedure on elbow completed Brianna Daniels [facility] 02/06/2024 10:38:13 Imaging Results Imaging Date Name Status LastModified by Organiz ation Details LastModified Time 02/12/2024 audiogram completed BAR[facility] Information no t available 02/12/2024 12:37:41 Procedure Notes None recorded. Medical Equipment None Reported. Allergies Allergen ID Allergen Name Allergen Category Reaction Reaction Severity Criticality Documentation Date Start Date Code Code System Note Provider Name and Address Organization Details Recorded Time 429975 Product containin g penicilli n (product) medicatio n Not available Not available Not available 02/06/2024 52724 8001 SNOMED Brianna pennington [facility] 4 10:28:43 217681 Substance with sulfonami de structure and antibacte rial mechanism of action (substanc e) medicatio n Not available Not available Not available 02/06/2024 65616 8003 SNOMED Brianna pennington [place] - [facility] 4 10:28:50 051920 wheat preparati on food,medi cation Not available Not available Not available 02/06/2024 33214 52 RxNorm Brianna pennington [facility] 4 10:28:58 345141 soy environme nt,food,m edication Not available Not available Not available 02/06/2024 96328 UNK Brianna pennington [place] - [facility] 4 10:29:04 670130 shellfish derived food,medi cation Not available Not available Not available 02/06/2024 02235 UNK Brianna pennington [place] - [facility] 4 10:29:41 441300 iodine medicatio n Not available Not available Not available 09/30/2024 5933 RxNorm Brianna pennington [place] - [facility] 5 15:46:41 001065 aspirin medicatio n Not available Not available Not available 09/30/2024 1191 RxNorm Brianna pennington [place] [facility] 15:46:48 Medications Name Sig Start Date Stop [...] History Condition Response Arthritis Y GERD/Reflux Y Hyperlipidemia Y Heart Attack ([place]) Y Thyroid Problems Y Hypertension Y Gynecological HistoryNo gynecological history recorded. Obstetrics History GPAL:G 0 P 0 0 0 0 Past Encounters Encounter ID Performer Location Encounter Start Date Encounter Closed Date Diagnosis/Indication Diagnosis SNOMED-CT Code Diagnosis ICD10 Code Diagnosis Note [id number] ELIANA LORENZANA [facility] [address] [address] 02/06/2024 10:09:46 02/06/2024 11:15:27 Sensorineural hearing loss of bilateral ears 590486327 H90.3 Audiologic al evaluation results:Merged with [facility] ear:{{Norm al auditory thresholds Normal sloping [...] seal}} 3000 VANDANA REHMAN MD [facility] [address] [place] [address] 02/06/2024 10:09:46 02/06/2024 11:15:27 Unsteady when walking 76679404 R26.89 Patient referred for evaluation of dizziness [...] Sensorineu ral hearing loss of bilateral ears 530271816 H90.3 Audiologic al evaluation results:Ri ght ear:{{Norm [...] up for a hearing aid evaluation . [id number] CHRIS FREEMAN MD [facility] [address] [address] 09/30/2024 14:39:01 09/30/2024 15:53:55 Chronic cough 82965779 R05.3 Daughter reports chronic cough that was present prior to COVID but has been voice. I do not see any anatomical cause. Consider CT of sinus if sx persist. Vocal nodu les in adults 84340093 J38.2 Daughter reports voice is actually improved. There is small nodule on the right side. Speech is fluent. Daughter concerned about slurred speech Tracheomalacia 64358438 Q32.0 Sent by PCP here for management [...] Ayala Member ID Guarantor Name 02/06/2024 1 [facility] (MEDICARE REPLACEMENT/A DVANTAGE - HMO) [id number] Yaquelin Chavez [id number] Yaquelin Chavez 02/06/2024 1 [facility] (MEDICARE REPLACEMENT/A DVANTAGE - HMO) [id number] Yaquelin Chavez [id number] Yaquelin Chavez 09/30/2024 1 [facility] (MEDICARE REPLACEMENT/A DVANTAGE - HMO) [id number] Yaquelin Chavez [id number] Yaquelin Chavez Notes Date Note Type Note [...] lower extremity swelling lately. VANDANA REHMAN MD [address] [place] [address],[address], [address], [place] - [facility] 02/06/2024 11:18:17 09/30/2024 text/html cough since COVI [...] scan showed tracheomalacia. CHRIS WARREN MD [address] [facility],[address], [address], [facility] - [facility] 09/30/2024 17:13:25 OBGyn Episode No OBEpisode recorded.
--- OUTSIDE RECORDS SUMMARY | 2024-12-29 12:42 | XMS_ITS ---
Author Organization [facility] Address [address] [facility] [address] [place] [address] Care Team Providers Care Supervisor [employer] Name Role Phone LUCILA CORDERO Primary Care Provider [phone] Georgi Teran Unavailable [phone] REASON FOR VISIT Medicare Wellness Encounters Encounter Location Date Provider Diagnosis [facility] [address] [facility] [address] [place] [address] 12/22/2024 Georgi Tierney Plan Of Treatment Next Appt Details Provider Name:LUCILA CORDERO , 01/12/2025 10:45:00 AM, [address] [facility] [address], [place], [address], Progress Notes * MAMTA YOUSSEFOB: (74 yo F)Acc No.[id number]:12/22/2024 Progress Note Patient:?JUAN YOUSSEF Provider:?Georgi Tierney :1950???Age:74 Y???Sex:Female D ate:12/22/2024 Phone: Address:[address] [place], [place] [id number] Pcp:LUCILA CORDERO Subjective: * Chief Complaints: * ???1. Medicare Wellness. * Medical History:? Objective: * Vitals:? Assessment: Plan: * Treatment: * Images: * Electronic signature of Aly Tierney on 12/29/2024 at 12:41 PM EDT Sign off status: Pending * Provider:Viji Tierney, Date:?12/22/2024 Generated for Corbin johnston/Senia/eTlilianasmitting on:?12/29/2024 12:41 PM EDT
--- OUTSIDE RECORDS SUMMARY | 2024-12-29 12:42 | XMS_ITS | Patient Health Record ---
Author Organization [employer] Address [address] [place] [address] Care Team Providers Care Private Investigator Name Role Phone LUCILA CORDERO Primary Care Provider Georgi Tierney Unavailable [phone] GaneshsindySanjiv logan Unavailable [phone] Allergies Allergen (clinical drug ingredient) Drug/Non Drug [...] Reference Range Notes Basic Metabolic Panel ([id number] Reviewed date:07/07/2024 03:16:45 PM Interpretation: Performing Lab:[facility], [address] [place] [address], Phone - [phone], Director - Maame Notes/Report: Glucose 97 70-99 mg/dL BUN 11 8-27 mg/dL Creatinine 1.02 0.57-1.00 mg/dL eGFR 57 >59 mL/min/1.73 BUN/Creatinine Ratio 11 12-28 Sodium 142 134-144 mmol/L Potassium 4.4 3.5-5.2 mmol/L Chloride 104 96-106 mmol/L Carbon Dioxide, Total 19 20-29 mmol/L TSH+Free [id number] Reviewed date:05/02/2024 01:14:51 AM Interpretation: Performing Lab:[facility] [place], [address], [address], [place], Phone - [phone], Director - [facility] Notes/Report: TSH 0.526 0.450-4.500 uIU/mL T4,Free(Direct) 1.17 0.82-1.77 ng/dL Viral Hepatitis HBV, HCV-144 025 Reviewed date:05/02/2024 01:15:01 AM Interpretation: Performing Lab:[facility], [address], [address], [place], Phone - [phone], Director - [facility] Notes/Report: HBsAg Screen Negative Negative Hep B [...] indicate HCV infection. Hep B Core Ab, IgM-231625 Reviewed date:05/02/2024 01:15:18 AM Interpretation: Performing Lab:[facility], [address], [address], [place], Phone - [phone], Director - [facility] Notes/Report: Hep B Core Ab, IgM Negative Negative Hep Be Ag-[id number] Reviewed date:05/20/2024 03:59:47 PM Interpretation: Performing Lab:[facility] [place], [address], [address], [place], Phone - [phone], Director - [facility] Notes/Report: Hep Be Ag Negative Negative Hepatitis B Surf Ab Quant-00 6530 Reviewed date:05/20/2024 03:59:30 PM Interpretation: Performing Lab:[facility] [place], [address], [address], [place], Phone - [phone], Director - [facility] Notes/Report: Hepatitis B Surf Ab Quant <3.5 Immunity>10 mIU /mL Status of Immunity Anti-HBs Level Inconsistent with Immunity 0.0 - 10.0 Consistent with Immunity >10.0 ALT (SGPT)-[id number] Reviewed date:05/02/2024 01:15:35 AM Interpretation: Performing Lab:[facility] [place], [address], [address], [place], Phone - [phone], Director - [facility] Notes/Report: ALT (SGPT) 20 0-32 IU/L AST (SGOT)-[id number] Reviewed date:05/02/2024 01:15:26 AM Interpretation: Performing Lab:[facility] [place], [address], [address], [place], Phone - [phone], Director - [facility] Notes/Report: AST (SGOT) 17 0-40 IU/L Thyroid Panel-[id number] Reviewed date:05/02/2024 01:14:42 AM Interpretation: Performing Lab:[facility] [place], [address], [address], [place], Phone - [phone], Director - [facility] Notes/Report: Thyroxine (T4) 7.8 4.5-12.0 ug/dL T3 Uptake 24 24-39 % Free Thyroxine Index 1.9 1.2-4.9 Reason For Referral Reason Evaluation and manag ement Diagnosis 1 Gastro-esophageal re flux disease without esophagitis (K21.9) Referral Organization [facility] Referring Provider First Name LUCILA Referring Provider Last Name FEDERICA Referring Provider Speciality Internal edicine Referred Provider Specialty Gastroentero logy General Notes Referral faxed to [facility] Gastro[facility]ology - Dept will call patient for scheduling.Rakan Latraya 04/01/2024 08:11:55 AM > Referral Priority Routine Reason Evaluation and manag ement Diagnosis 1 Unsteadiness on feet (R26.81) Referral Organization [facility] Referring Provider First Name LUCILA Referring Provider Last Name FEDERICA Referring Provider Speciality Internal edicine Referred Provider Specialty Physical The rapist General Notes Referral faxed to [facility] Physical Therapy in [place]- Dept will call patient for scheduling.Rakan Latraya 04/01/2024 08:13:41 AM > Referral Priority Routine Reason Please evaluate and treat Diagnosis 1 Unsteadiness on feet (R26.81) Referral Organization [facility] Referring Provider First Name LUCILA Referring Provider Last Name [facility] Referring Provider Speciality Internal edicine Referred Provider Specialty Physical The rapist General Notes Referral faxed to [facility] at [phone] as requested by the patient. Please contact the patient to schedule an appt.Isabelle Kayla 04/01/2024 08:30:16 AM > Referral Priority Routine Reason cough post covid- Diagnosis 1 Cough (R05.9) Referral Organization [facility] Referring Provider First Name Sanjiv Referring Provider Last Name Onur Referred Provider Specialty Pulmonology General Notes faxed to [facility] Yvonne Young Brittney 04/29/2024 03:37:25 PM > Referral Priority Routine Reason Evaluation and manag ement Diagnosis 1 Pain in right wrist (M25.531) Diagnosis 2 Pain in left wrist ( M25.532) Referral Organization [facility] Referring Provider First Name LUCILA Referring Provider Last Name [facility] Referring Provider Speciality Internal edformerly [facility] Referred Provider Specialty Occupational Therapy General Notes Referral sent to [facility] in [place]- Office will call patient for scheduling.Rakan Latraya 05/14/2024 12:24:23 PM > Referral Priority Routine Reason Evaluation and manag ement Diagnosis 1 Solitary pulmonary n odule (R91.1) Referral Organization [facility] Referring Provider First Name LUCILA Referring Provider Last Name FEDERICA Referring Provider Speciality Internal edicine Referred Provider Specialty Pulmonary Di seases General Notes URGENT Referral faxe d to [facility]. I spoke with Lana who states they are not contracted with the patient's insurance. Isabelle Kayla 05/18/2024 02:16:36 PM >, Urgent referral faxed to [facility]. They are closed today so I could not call to schedule an appt. Isabelle Kayla 05/18/2024 02:23:13 PM > Referral Priority Urgent Reason THYROID NODULE - CT done at [facility] Diagnosis 1 Nontoxic single thyr oid nodule (E04.1) Referral Organization [facility] Referring Provider First Name LUCILA Referring Provider Last Name [facility] Referring Provider Speciality Internal edformerly [facility] Referred Provider Specialty Intervention al Radiology General Notes Referral sent to [facility] - Office will call patient for scheduling.Rakan Latraya 05/21/2024 10:48:26 AM > Referral Priority Routine Reason Evaluation and manag ement Diagnosis 1 Pain in unspecified hand (M79.643) Referral Organization [facility] Referring Provider First Name GAYTAN Referring Provider Last Name CONSUELO Referring Provider Speciality Internal edicine Referred Provider Specialty Hand Surgery General Notes Referral faxed to [facility] - Office will call patient for scheduling., Maday Bledsoe 06/23/2024 01:03:08 PM > Referral Priority Routine Reason please evaluate and treat Diagnosis 1 Slurred speech (R47. 81) Referral Organization [facility] Referring Provider First Name Sanjiv Referring Provider Last Name Onur Referred Provider Specialty Speech and l samanta therapist Clinical Notes Faxed to [facility], they will contact ptDavis Brittney 07/02/2024 09:38:23 AM > Referral Priority Routine Reason Please evaluate and treat Diagnosis 1 Solitary pulmonary n odule (R91.1) Referral Organization [facility] Referring Provider First Name Sanjiv Referring Provider Last Name Onur Referred Provider Specialty Pulmonary Di seases General Notes Referral faxed to [facility]. The office will call the patient to schedule., Donna Walton 07/07/2024 03:32:16 PM > Referral Priority Urgent Reason Dr. 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) Referral Organization [facility] Referring Provider First Name Georgi Referring [...] day for 30 days 05/15/2024 Not-Taking Nystatin 478742 UNIT/GM 1 application Externally Twice a day [...] Risk Notes Problem Non-toxic single thyroid nodule (646389046) Nontoxic single thyroid nodule (E04.1) Active confirmed Problem Non-toxic multinodular goiter (55075624) Nontoxic multinodular goiter (E04.2) Active confirmed Problem Mixed hyperlipidemia (577451413) Mixed hyperlipidemia (E78.2) Active confirmed Problem Essential hypertension (07000161) Essential (primary) hypertension (I10) Active confirmed Problem Gastro-esophageal reflux disease without esophagitis (081324058) Gastro-esophageal reflux disease without esophagitis (K21.9) Active confirmed Problem Diaphragmatic hernia (40839792) Diaphragmatic hernia without obstruction or gangrene (K44.9) Active confirmed Problem Diverticulitis of colon (940886273) Diverticulitis of large intestine without perforation or abscess without bleeding (K57.32) Active confirmed Problem Fatty liver (757324062) Fatty (change of) liver, not elsewhere classified (K76.0) Active confirmed Problem Osteoarthritis (003336838) Polyosteoarthriti s, unspecified (M15.9) Active confirmed Problem 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 Problem Abnormal gait (92058868) Unsteadiness on feet (R26.81) Active confirmed Problem Abnormal gait (05724874) Other abnormalities of gait and mobility (R26.89) Active confirmed Problem Solitary pulmonary nodule (294999593) Solitary pulmonary nodule (R91.1) Active confirmed Problem Imaging result abnormal (169720984) Abnormal findings on diagnostic imaging of other specified body structures (R93.89) Active confirmed Problem 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-CFPQX-75 condition (B94.8) Active confirmed Problem Chronic jxzr-GOZEV-42 syndrome (disorder) (0485208517) Gose-LPBGX-23 syndrome (B94.8) Active confirmed Problem 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) (2752118922) Post COVID-19 condition, 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) Active confirmed Vital Signs Heart Rate 72 /min 10/29/2024 Temperature 96.5 degrees Fahrenheit 10/29/2024 Blood pressure diastolic 80 mm Hg 10/29/2024 Oximetry 95 % 10/29/2024 Height 4'1'' in 10/29/2024 Blood pressure systolic 130 mm Hg 10/29/2024 Weight 204.8 lbs 10/29/2024 BMI 59.96 kg/m2 10/29/2024 Encounters Encounter Location Date Provider Diagnosis [address] [place] [address] 03/31/2024 GAYTAN FEDERICAYvonne Gastro-esophageal reflux disease without esophagitis K21.9 ; Mixed hyperlipidemia E78.2 ; Polyosteoarthritis, unspecified M15.9 ; Diverticulitis of large intestine without perforation or abscess without bleeding K57.32 and Cough, unspecified R05.[address] [place] [address] 04/29/2024 [facility] discharge follow-up Z09 ; Abnormal findings on diagnostic imaging of other specified body structures R93.89 ; Cough R05.9 ; Nontoxic multinodular goiter E04.2 ; Fatty (change of) liver, not elsewhere classified K76.0 and Diaphragmatic hernia without obstruction or gangrene K44.[address] [address] 05/15/2024 LUCILA STALLWORTHYvonne Lpij-BHBRE-15 syndro me B94.8 ; Cough, unspecified R05.9 ; Solitary pulmonary nodule R91.1 ; Nontoxic single thyroid nodule E04.1 ; Other abnormalities of gait and mobility R26.89 and Pain in right wrist M25.[address] [address] 06/30/2024 [facility] Solitary pulmonary nodule R91.1 ; Nontoxic single thyroid nodule E04.1 ; Other abnormalities of gait and mobility R26.89 ; Pain in right wrist M25.531 ; Slurred speech R47.81 ; Edema, unspecified R60.9 ; Essential (primary) hypertension I10 and Gastro-esophageal reflux disease without esophagitis K21.[address] [place] [address] 07/07/2024 [facility] Essential (primary) hypertension I10 ; Cough R05.9 and Gastro-esophageal reflux disease without esophagitis K21.9 [facility] [address] [place] [address] 07/22/2024 Ghadeer Mazloum Essential (primary) hypertension I10 and Cough, unspecified R05.9 [facility] [address] [place] [address] 09/03/2024 [facility] discharge follow-up Z09 [facility] [address] [place] [address] 10/29/2024 [facility] Slurred speech R47.8 1 ; Cough, unspecified R05.9 and Post COVID-19 condition, unspecified U09.9 [facility] [address] [place] [address] 03/31/2024 [facility] Cough, unspecified R05.9 [facility] [address] [place] [address] 04/01/2024 [facility] [address] [place] [address] 04/17/2024 [facility] [address] [place] [address] 04/28/2024 Ghadeer Ganeshloum [facility] [address] [place] [address] 05/11/2024 [facility] [address] [place] [address] 05/15/2024 [facility] [address] [place] [address] 05/20/2024 Ghadeer Mazloum Other specified abnormal immunological findings in serum R76.8 [facility] [address] [place] [address] 06/22/2024 [facility] [address] [place] [address] 07/03/[address] [place] [address] 07/07/2024 Ghadeer Mazloum Nontoxic multinodula r goiter E04.2 [facility] [address] [place] [address] 07/09/2024 Ghadeer Mazloum Nontoxic multinodula r goiter E04.2 [facility] [address] [place] [address] 07/13/[address] [facility] [address] [place] [address] 07/14/2024 [facility] [address] [place] [address] 08/27/2024 [facility] [address] [place] [address] 08/28/2024 [facility] [address] [place] [address] 09/09/2024 [facility] [address] [place] [address] 09/16/2024 [facility] [address] [place] [address] 09/24/2024 [facility] [address] [place] [address] 10/23/2024 [facility] [address] [place] [address] 10/28/2024 [facility] [address] [place] [address] 10/28/2024 [facility] [address] [place] [address] 10/29/2024 [facility] [address] [place] [address] 12/01/2024 [facility] [address] [place] [address] 12/01/2024 [facility] [address] [place] [address] 12/04/2024 [facility] [address] [place] [address] 05/01/2024 [facility] [address] [place] [address] 05/05/2024 [facility] [address] [place] [address] 05/16/2024 [facility] [address] [place] [address] 05/18/2024 [facility] Cough R05.9 [facility] [address] [place] [address] 05/20/2024 [facility] [address] [place] [address] 05/21/2024 [facility] [address] [place] [address] 05/21/2024 Sanjiv Mohr Pngb-ELOSJ-45 condit ion B94.8 [facility] [address] [place] [address] 06/09/2024 [facility] [address] [place] [address] 06/24/2024 [facility] [address] [place] [address] 07/02/2024 [facility] [address] [place] [address] 07/07/2024 [facility] [address] [place] [address] 07/10/2024 [facility] [address] [place] [address] [facility] [address] [place] [address] 07/23/2024 GAYTAN GUL Cough R05.9 and Gastro-esophageal reflux disease without esophagitis K21.9 [facility] [address] [place] [address] 07/24/2024 [facility] [address] [place] [address] 08/04/2024 GAYTAN GUL Essential (primary) hypertension I10 [facility] [address] [place] [address] 08/05/2024 GAYTAN GUL Essential (primary) hypertension I10 [facility] [address] [place] [address] 08/14/2024 [facility] [address] [place] [address] 08/14/2024 GAYTAN GUL Cough R05.9 [facility] [address] [place] [address] 08/16/2024 [facility] [address] [place] [address] 09/04/2024 GAYTAN L [facility] [address] [place] [address] 09/08/2024 GAYTAN [facility] [address] [place] [address] 09/09/2024 [facility] [address] [place] [address] 09/16/2024 [facility] [address] [place] [address] 09/18/[address] [place] [address] 09/25/[address] [place] [address] 09/25/[address] [place] [address] 10/23/[address] [place] [address] 11/06/[address] [place] [address] 11/26/2024 GAYTAN FEDERICAL Cough R05.[address] [place] [address] 11/27/2024 GAYTAN [facility] Cough, unspecified R05.[address] [place] [address] 12/01/[address] [place] [address] 12/02/2024 GAYTAN GU Assessments Encounter Date Diagnosis [...] patient but was available upon request 05/15/2024 Xjoy-IVZXJ-58 syndrome (ICD-10 - B94.8) Yanique is 73 years old lady with acid reflux, fatty liver, mixed type edema. She was recently hospitalized at [facility] for coronavirus 19 infection. Today she complains [...] be given referral to Dr. Abebe at [facility] pulmonology Thyroid nodule. She will be sent [...] Patient located in a home setting in [facility] during this telemedicine visit. Provider located at [facility] in [place] in [facility] 05/15/2024 Cough, unspecified (ICD-10 - R05.9) Yanique is 73 years old lady with acid reflux, fatty liver, mixed type edema. She was recently hospitalized at [facility] for coronavirus 19 infection. Today she complains [...] be given referral to Dr. Abebe at [facility] pulmonology Thyroid nodule. She will be sent [...] Patient located in a home setting in [facility] during this telemedicine visit. Provider located at [facility] in [place] in [facility] 05/18/2024 Cough (ICD-10 - R05.9) 05/20/2024 Other specified abnormal immunological findings in serum (ICD-10 - R76.8) 05/21/2024 Sywp-EMHJM-29 condition (ICD-10 - B94.8) 03/31/2024 Cough, unspecified (ICD-10 - R05.9) 07/23/2024 Cough (ICD-10 - R05.9) 08/04/2024 Essential (primary) hypertension (ICD-10 - I10) 08/05/2024 Essential (primary) hypertension (ICD-10 - I10) 08/14/2024 Cough (ICD-10 - R05.9) 09/03/2024 Hospital discharge follow-up (ICD-10 - Z09) 74-year-old lady with history of hypertension hyperlipidemia GERD post Kober syndrome hepatic steatosis who was admitted to [facility] on 08/16/24 for management of cough and shortness of breath she was found to have a ST elevation SC patient is here for a post hospital discharge, she was discharged on 08/23/24. ST elevation SC status post stent placement mid RCA DS, left main is 45% stenosis but medically treated. Patient was seen by Dr. Santos she will follow up as an outpatient with district cardiology in 4-6 weeks. Continue with aspirin, continue Plavix 75 [place] daily atorvastatin 80 mg daily she was [...] are going to Dr. Amos pulmonology in [place]. Thyroid nodule she has history of subclinical hypothyroidism, in the past there was a question of a biopsy, at the time this was not followed up as patient went to the hospital and had an ST elevation SC. Currently she is on aspirin and Plavix. [...] of post coitus syndrome, hypertension, ST elevation SC status post stent, chronic cough tracheomalacia is [...] wrap's and elevation History of ST elevation SC status post stent placement mid RCA DS, left main is 45% stenosis but medically treated. Patient was seen by Dr. Santos she will follow up as an outpatient with district cardiology in 4-6 weeks. Continue with aspirin, continue Plavix 75 [place] daily atorvastatin 80 mg daily and metoprolol Lung nodulet followed by Dr. Amos pulmonology in [place] .Thyroid nodule she has history of subclinical [...] for follow-up. She was recently hospitalized at [facility] for coronavirus 19 infection. Today she complains [...] compare. She will be given referral to [facility] pulmonology Thyroid nodule. - Incidental finding of [...] of post coitus syndrome, hypertension, ST elevation SC status post stent, chronic cough tracheomalacia is [...] wrap's and elevation History of ST elevation SC status post stent placement mid RCA DS, left main is 45% stenosis but medically treated. Patient was seen by Dr. Santos she will follow up as an outpatient with district cardiology in 4-6 weeks. Continue with aspirin, continue Plavix 75 [place]zia daily atorvastatin 80 mg daily and metoprolol Lung nodulet followed by Dr. Amos pulmonology in [place] .Thyroid nodule she has history of subclinical hypothyroidism, multiple questions were answered today, spoke to patient's and daughter at length 05/15/2024 Solitary pulmonary nodule (ICD-10 - R91.1) Yanique is 73 years old lady with acid reflux, fatty liver, mixed type edema. She was recently hospitalized at [facility] for coronavirus 19 infection. Today she complains [...] be given referral to Dr. Abebe at [facility] pulmonology Thyroid nodule. She will be sent [...] Patient located in a home setting in [facility] during this telemedicine visit. Provider located at [facility] in [place] in [facility] 06/30/2024 Nontoxic single thyroid nodule (ICD-10 - E04.1) Yanique is 74 years old lady with acid reflux, fatty liver, mixed type edema is here for follow-up. She was recently hospitalized at [facility] for coronavirus 19 infection. Today she complains [...] compare. She will be given referral to [facility] pulmonology Thyroid nodule. - Incidental finding of [...] type edema. She was recently hospitalized at [facility] for coronavirus 19 infection. Today she complains [...] be given referral to Dr. Abebe at [facility]ology Thyroid nodule. She will be sent [...] Patient located in a home setting in [facility] during this telemedicine visit. Provider located at [facility] in [facility] 06/30/2024 Other abnormalities of gait and mobility (ICD-10 - R26.89) Yanique is 74 years old lady with acid reflux, fatty liver, mixed type edema is here for follow-up. She was recently hospitalized at [facility] for coronavirus 19 infection. Today she complains [...] compare. She will be given referral to [facility] pul[facility]ology Thyroid nodule. - Incidental finding of [...] of post coitus syndrome, hypertension, ST elevation SC status post stent, chronic cough tracheomalacia is [...] wrap's and elevation History of ST elevation SC status post stent placement mid RCA DS, left main is 45% stenosis but medically treated. Patient was seen by Dr. Santos she will follow up as an outpatient with district cardiology in 4-6 weeks. Continue with aspirin, continue Plavix 75 Powell daily atorvastatin 80 mg daily and metoprolol Lung nodulet followed by Dr. Amos pulmonology in [place] .Thyroid nodule she has history of subclinical [...] type edema. She was recently hospitalized at [facility] for coronavirus 19 infection. Today she complains [...] be given referral to Dr. Abebe at [facility] pul[facility]ology Thyroid nodule. She will be sent [...] Patient located in a home setting in [facility] during this telemedicine visit. Provider located at [facility] in [place] in [facility] 06/30/2024 Pain in right wrist (ICD-10 - M25.531) Yanique is 74 years old lady with acid reflux, fatty liver, mixed type edema is here for follow-up. She was recently hospitalized at [facility] for coronavirus 19 infection. Today she complains [...] compare. She will be given referral to [facility] pul[facility]ology Thyroid nodule. - Incidental finding of [...] type edema. She was recently hospitalized at [facility] for coronavirus 19 infection. Today she complains [...] be given referral to Dr. Abebe at [facility] pul[facility]ology Thyroid nodule. She will be sent [...] Patient located in a home setting in [facility] during this telemedicine visit. Provider located at [facility] in [place] in [facility] 06/30/2024 Slurred speech (ICD-10 - R47.81) Yanique is 74 years old lady with acid reflux, fatty liver, mixed type edema is here for follow-up. She was recently hospitalized at [facility] for coronavirus 19 infection. Today she complains [...] compare. She will be given referral to [facility] Thyroid nodule. - Incidental finding of [...] for follow-up. She was recently hospitalized at [facility] for coronavirus 19 infection. Today she complains [...] compare. She will be given referral to [facility] Thyroid nodule. - Incidental finding of [...] this patient under direct supervision of Dr. Cordeor, who did not see the patient but was available upon request 06/30/2024 Essential (primary) hypertension (ICD-10 - I10) Yanique is 74 years old lady with acid reflux, fatty liver, mixed type edema is here for follow-up. She was recently hospitalized at [facility] for coronavirus 19 infection. Today she complains [...] compare. She will be given referral to [facility] Thyroid nodule. - Incidental finding of [...] for follow-up. She was recently hospitalized at [facility] for coronavirus 19 infection. Today she complains [...] compare. She will be given referral to [facility] pul[facility] Thyroid nodule. - Incidental finding of [...] & Lat 06/30 Hepatitis B Surf Ab Quant-[id number] Hep B Core Ab, [id number] 04/29/2024 Next Appt Details Provider Name:LUCILA CORDERO , 01/12/2025 10:45:00 AM, [address] [place] [address], [phone], Insurance Providers Payer Name Payer Address Payer Phone Subscriber Number Group Number Insured Name Patient Relationship to Insured Coverage Start Date Coverage End Date [employer] MEDICARE COMPLETE [address] [address] [place] [phone] [id number] JUAN YOUSSEF Self - patient is the insured Medical (General) History Medical History History ICD Code GERD arthritis, bilateral hand/thumb diverticulitis Surgical History Surgery Date(Month/Year) right total knee replacement left rotator cuff repair, left bicep mus dana -work related
== END 2024-12-29 11:47 | disposition home or self-care (01) ==
LOC: HO.HPS 10:56
PROVIDERS: PCP Hospitalist; Referring Provider Hospitalist; Visit Provider Hospitalist
DX: R05.3 Chronic cough (principal); U09.9 Post COVID-19 condition, unspecified; J39.8 Other specified diseases of upper respiratory tract; R91.1 Solitary pulmonary nodule; G47.33 Obstructive sleep apnea (adult) (pediatric); T78.40XA Allergy, unspecified, initial encounter; I50.9 Heart failure, unspecified
CPT/HCPCS: 99215; G2211

== ENCOUNTER → 2024-12-29 10:56 | Outpatient (BNVA) | payer MEDICARE, SELFPAY | PROVIDERS: PCP Hospitalist; Referring Provider Hospitalist; Visit Provider Hospitalist | DX: G47.33 Obstructive sleep apnea (adult) (pediatric) (principal); R05.3 Chronic cough; J39.8 Other specified diseases of upper respiratory tract; U09.9 Post COVID-19 condition, unspecified; R91.1 Solitary pulmonary nodule; I50.9 Heart failure, unspecified; T78.40XA Allergy, unspecified, initial encounter; X58.XXXA Exposure to other specified factors, initial encounter | CPT/HCPCS: 99212 ==

== ENCOUNTER 2025-07-06 10:36 | Outpatient (REF) | payer MEDICARE, SELFPAY ==
--- NOTE | ~2025-07-06 | XR_ITS ---
EXAMINATION: XR CHEST CLINICAL INFORMATION: R09.89 - Other specified symptoms and signs involving the circulatory an... COMPARISON: Previous chest CT December 2024 TECHNIQUE: 2 views of the chest were obtained. FINDINGS: The lungs are clear. No consolidation or pulmonary edema. Right middle lobe nodule seen by chest CT not appreciated by x-ray. No pleural effusion or pneumothorax. Cardiac and mediastinal contours are normal. Degenerative changes of the spine. XR/XR chest 2V IMPRESSION: No evidence for acute disease in the chest. Electronically signed by: Milly Avila MD 07/06/2025 12:30 PM [facility]
== END 2025-07-06 10:37 | disposition home or self-care (01) ==
LOC: HO.XRAY 10:36
PROVIDERS: PCP Hospitalist; Visit Provider Hospitalist
DX: R91.1 Solitary pulmonary nodule (principal); R05.3 Chronic cough; U09.9 Post COVID-19 condition, unspecified; J39.8 Other specified diseases of upper respiratory tract; I50.9 Heart failure, unspecified; G47.33 Obstructive sleep apnea (adult) (pediatric); T78.40XA Allergy, unspecified, initial encounter; Z79.899 Other long term (current) drug therapy
CPT/HCPCS: 71046; 94010; 99212

== ENCOUNTER 2025-07-06 10:36 | Outpatient (AMB) | payer MEDICARE, SELFPAY ==
--- OUTSIDE RECORDS SUMMARY | 2024-12-22 06:30 | XMS_ITS ---
Author Organization [facility] Address [address] [address] Care Team Providers Care Crime Scene Specialist Name Role Phone LUCILA CORDERO Primary Care Provider [phone] Georgi Teran [phone] REASON FOR VISIT Medicare Wellness Encounters Encounter Location Date Provider Diagnosis [facility] 294 [facility] [address] [place] [address] 12/22/2024 Georgi Tierney Plan Of Treatment Next Appt Details Provider Name:LUCILA CORDERO , 07/13/2025 11:15:00 AM, [address] [address], [place], [address], Progress Notes * Doris YOUSSEFOB: 9 (75 yo F)Acc No.[id number]:12/22/2024 Progress Note Patient: Yaquelin SWAN Provider: El Tierney, :1950 A ge:74 Y S ex:Female Date:12/22/2024 Address:[address] [place], [place] [phone] Pcp:LUCILA CORDERO Subjective: * Chief Complaints: * 1 . Medicare Wellness. * Medical History: Objective: * Vitals: Assessment: Plan: * Treatment: * Images: * Electronic signature of Reido sa Tierney on 07/06/2025 at 12:31 PM EST Sign off status: Pending * Provider: El Tierney, Date: 0 12/22/2024 Generated for Corbin johnston/Senia/Jayjay on: 1 09/05/2024 12:31 PM EST
--- NOTE | 2025-07-06 10:39 | A.OFFVIS_ITS ---
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 Apparently she was in his usual state health until sometime in April when she started developing significant weakness to the point that she could not even stand. EMS was called to the scene and she was brought to the [facility] ED where she was briefly admitted. The patient did have a a full workup and finally discovered that she had COVID-19. The patient did have a CT scan of the chest during that admission. Initially noncontrast. I did personally reviewed. It appears that she does have enlarged thyroid gland left more than right. In addition to that she has a very narrow trachea with a crescent panchal signs suggesting some degree of proximal tracheomalacia. The resident mid trachea and distal trachea appeared to be completely fine. She also has a 1.3 cm elongated nodule in the right middle lobe area. The next day she did have a CTA that ruled out that this was a vascular structure. Therefore was recommended she have a CT scan 6 months from prior just to make sure to follow it up. The patient has not had any CT scans previously to review. Ultimately she started developing a significant cough after that. The cough is persistent. Is for the most part nonproductive although sometimes she does have some chest congestion. She has had significant laryngospasm that occur after the coughing spells. And sometimes she has loses her breath. She was placed on Breo and also given a course few courses of prednisone. In the Breo she seems to be tolerating okay she also has been using her rescue inhaler often to the point that she tends to be little tachycardic. She is also having some daytime drowsiness. The patient has an elevated [place] score 07/26. Her does state that she has significant snoring. Therefore sleep study will be helpful as well. We did teach her how to use a nebulizer in the office. I do believe a nebulizer will help her with mucus clearance. An Acapella valve will also be requested for chest PT. will provide her with cough suppressant therapy to keep her from coughing to minimize further injury to her larynx and also proximal trachea. 07/18/2025 the patient is here for a pulmonary follow-up visit. Overall she is feeling better. She is using the nebulizer and also the CPT with a Acapella valve. This has been affecting beneficial. She is also using the inhaler. Her cough is overall better. She is trying the cough technique. She is also using the cough suppressant. She does have evidence of tracheomalacia. In addition to that she does have daytime drowsiness. Her Northfield score is elevated 11/24. She did have a sleep study in demonstrated significant sleep apnea. Therefore based on her cardiovascular risk factors with heart disease and has significant daytime drowsiness will be important for her to start CPAP therapy. I briefly spoke to her about it and will go ahead and send a script to the local [employer] company in order to provide with the supplies in the expertise. The patient will come back in 3-4 months. I which point the patient will also need a CT scan to follow-up with the pulmonary nodules that she had before. She prefers to have this at [facility]. 10/30/2024 the patient is here for a pulmonary follow-up visit. She started the CPAP as she has been having hard time tolerating it. Will bring back and forth trying to find her a pressure that she can not tolerate. But her coughing gets worse when she is exhaling and therefore has a hard time. They are wondering a BiPAP but she is already on the lowest pressure 4 cm water so therefore BiPAP would not really play a role. She did have the ERS activated but that did not help either. She has a very sensitive cough right now and therefore would have to control the cough before trying it again. She has responded well to the Tessalon Perles that does not keep her from coughing at nighttime. Therefore will have her try codeine cough syrup will give her a small dose and see if she can tolerate it safely in his she can that we can consider using at nighttime along with her CPAP. She also apparently needs a CT scan of the chest and she has a hard time lying flat. I did have lay flat in the office and she did have some coughing episodes but at least her oxygen and her heart rate were stable. The family has been concerned because she does have some lower extremity edema. This is more than before. Will go ahead and request blood work including a BNP especially with a history heart disease. In addition to this the patient does have a hiatal hernia based on the CT scan that we did review. The patient is already sleeping elevated. She is already stopping her eating at 07:00 o'clock at nighttime and she has has small meals. She has some underlying neurological issues going on in her primary care doctor does wanting to get an MR of the brain but again she has a hard time lying flat so will have to wait for her cough and shortness of breath symptoms to improve before undergoing an MRI. We did again look at the CT scan of the chest that she had a [employer] demonstrating the nodular density in the right middle lobe. And she does have a scheduled CT scan for early December which hopefully the cough is better by then we can have that CT scan done. 12/29/2024 the patient is here for a pulmonary follow-up visit. Overall she is doing okay. She could not tolerate the CPAP and therefore decided to return it. Operative did not want it back on she had discharge order and I did put 1 in. I did call the company as well to make sure that they will parts picker her machine or she can deliver. She did not tolerated because of worsening cough. In the meantime the patient has cough still persists although slightly better. She did try the codeine cough syrup which she did tolerate by though she sometimes a little unsteady on her feet and she does not like that feeling. The patient also underwent a CT scan of the chest I personally reviewed with them. Her lung parenchyma appears to be better her tracheal also appears to be better she does have that goiter. Appears to be about the same. She does have the pulmonary nodule in the right middle lobe which is about the same size. It is all reassuring although she does have mitral a mild hiatal hernia. We did talk about reflux disease being a problem especially with chronic cough and also tracheomalacia. The patient will undergo a barium swallow whenever able. She is participating in cardiac rehab. We also talked about briefly about a bronchoscopy to better clear the mucus burden her lungs and to address the question of tracheomalacia. At this point she is doing cardiac rehab and after rehab we can always consider that. If she develops worsening chest congestion we can always consider a little earlier. She is developing a rash and she is actually causing significant sores on her scans. She can try some Claritin to see if this provides some relief. She will talk to her primary care doctor as a potential allergies. We did do some regular allergy testing we did not find any normal or common [place] allergy being elevated. 07/06/2025 the patient is here for a follow-up visit. Her symptoms are getting worse all of a sudden. Her cough is getting worsening congested. Her coughing indeed sounds like her tracheomalacia. She does have some congestion and some crackles at the bases likely lower respiratory infection. The patient has been dealing with significant skin reaction after medication and then developed open wounds resulting in a infection. She was initially placed on doxy but then cultures demonstrated possibly some resistance so she was switched over to ciprofloxacin. She is also concerned about her goiter. In the office we did do a spirometry. No evidence of any dynamic obstruction or any upper airway obstruction to suggest extrinsic compression from goiter. Her cough again more consistent with floppiness of the trachea consistent with tracheomalacia. She can continue with the Tessalon Perles and also the cough syrup to help her with her coughing spells. Will start her on doxy and the patient will go for an x- ray. She also has a barium swallow scheduled soon. 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 Chronic cough Social History Patient Tobacco Use Status: Never used Tobacco Review of Systems Const Reports daytime sleepiness and Reports snoring Eyes Reports no additional complaints ENT Denies change in voice Card Denies chest pain and Reports leg edema Resp Reports chest congestion, Reports cough, Reports snoring and Denies wheezing GI Reports no additional complaints Musc Reports myalgias Skin/Breast Denies rash Endo Reports no additional complaints Ricki/Lymph Reports no additional complaints Aller/Immun Denies wheezing Physical Exam Vital Signs: Last Vital Signs Pulse 105 H 07/06/25 10:40 BP 126/60 07/06/25 10:40 Pulse Ox 95 07/06/25 10:40 Oxygen Delivery Method Room Air 07/06/25 10:40 BMI result Body Mass Index 38.5 Const General: comfortable HEENT Head: Yes normocephalic Neck Neck: Yes supple Chest Chest palpation & inspection: normal inspection of the chest Resp Effort & Inspection: normal respiratory effort and Actively coughing Auscultation: rales and diminished lung sounds Cardio Heart sounds: S1 normal heart sound present and S2 normal heart sound present GI Palpation (GI): Soft to palpation Skin General skin exam: no rashes or lesions noted Extrem General: No cyanosis Office Procedures Spirometry Testing Spirometry Comments: spirometry done 25909- Spirometry Assessment & Plan Assessment & Plan (1) Chronic cough: Code(s): R05.3 - Chronic cough Category: Medical (2) 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, unspecified Category: Medical (3) Tracheomalacia: Comment: proximal trachea Code(s): J39.8 - Other specified diseases of upper respiratory tract Category: Medical (4) Pulmonary nodule: Comment: RML 1.3cm, not vascular anomaly based on CTA Code(s): R91.1 - Solitary pulmonary nodule Category: Medical (5) VIOLETTE (obstructive sleep apnea): Code(s): G47.33 - Obstructive sleep apnea (adult) (pediatric) Category: Medical (6) Allergy: Code(s): T78.40XA - Allergy, unspecified, initial encounter Category: Medical Qualifiers: Encounter type: initial encounter Qualified Code(s): T78.40XA - Allergy, unspecified, initial encounter (7) CHF (congestive heart failure): Comment: LE edema, basilar crackles, elevated BNP Code(s): I50.9 - Heart failure, unspecified Category: Medical Qualifiers: Heart failure type: other Qualified Code(s): I50.9 - Heart failure, unspecified (8) Chest crackles: Code(s): R09.89 - Other specified symptoms and signs involving the circulatory and respiratory systems Category: Medical Plan Start Docycycline Breo daily nebulizer with xopenex BID CPT with acapella valve BID cough medicine: codeine cough medicine as needed CXR Spirometry-no obstruction Barium swallow pending Sputum cx reflux diet sleep with HOB elevated Consider bronchoscopy Antihistamines as needed for rash F/U 1 months Orders: Orders XR chest 2V Today Raz Amos MD R09.89 - Other specified symptoms and signs involving the circulatory and respiratory systems Sputum Cult + Gram stain Today Raz Amos MD R91.1 - Solitary pulmonary nodule AMB Spirometry Testing Today Dhara Saldivar, RT R05.3 - Chronic cough Medications: New doxycycline monohydrate 100 mg PO BID 28 tabs 0RF 14 days Raz Amos MD benzonatate 200 mg PO BID PRN 60 caps 4RF cough 30 days Raz Amos MD Coding Level of Care Code Est Pt Level 5 (50034) Diagnoses Chronic cough R05.3 [id number] syndrome U09.9 Tracheomalacia J39.8 Pulmonary nodule R91.1 VIOLETTE (obstructive sleep apnea) G47.33 Allergy, initial encounter T78.40XA Encounter type: initial encounter Other congestive heart failure I50.9 Heart failure type: other Chest crackles R09.89 CPT Codes Spirometry - CPT: 98908- Spirometry ([id number]) Time Spent (min) 60
[2025-07-06 10:40] VITALS: BP 126/60; PULSE 105; O2SAT 95; BMI 38.5
--- OUTSIDE RECORDS SUMMARY | 2025-07-06 12:31 | XMS_ITS | Patient Health Record ---
Author Organization [facility] Address [address] [place] [address] [address] [place] [address] Care Team Providers Care Security Incident Response Engineer Name Role Phone FEDERICAYvonne GAYTAN Primary Care Provider Georgi Tierney Unavailable [phone] Sanjiv Mohr Unavailable [phone] Allergies Allergen (clinical drug ingredient) Drug/Non Drug [...] Active Results Component Value Reference Range Notes Hemoglobin [id number] Reviewed date:01/22/2025 07:50:14 AM Interpretation: Performing Lab:[facility] [place], [address] [place] [address], Phone - [phone], Director - Maame Notes/Report: A courtesy copy of this report has been sent to [phone], [phone] Hemoglobin A1c 6.1 4.8-5.6 % . Prediabetes: 5.7 - 6.4 Diabetes: >6.4 Glycemic control for adults with diabetes: <7.0 Albumin/Creatinine Ratio,Uri [id number] Reviewed date:01/22/2025 07:49:39 AM Interpretation: Performing Lab:[facility] [place], [address] [facility], [place], Phone - [phone], Director - Maame Notes/Report: A courtesy copy of this report has been sent to [phone], [phone] Creatinine, Urine 47.0 Not Estab. mg/dL Albumin, Urine <3.0 Not Estab. ug/mL Alb/Creat Ratio <6 0-29 mg/g creat Normal: 0 - 29 Moderately increased: 30 - 300 Severely increased: >300 Lipid Panel-[id number] Reviewed date:01/22/2025 07:50:08 AM Interpretation: Performing Lab:[facility] [place], [address] [place] [address], Phone - [phone], Director - Maame Notes/Report: A courtesy copy of this report has been sent to [phone], Cholesterol, Total 120 100-199 mg/dL Triglycerides 92 0-149 mg/dL HDL Cholesterol 44 >39 mg/dL VLDL Cholesterol Erik 18 5-40 mg/dL LDL Chol Calc (NIH) 58 0-99 mg/dL Comp. Metabolic Panel (14)-3 Reviewed date:01/22/2025 07:50:00 AM Interpretation: Performing Lab:[facility] [place], [address] [facility], [place], Phone - [phone], Director - Maame Notes/Report: A courtesy copy of this report has been sent to [phone], Glucose 86 70-99 mg/dL BUN 12 8-27 mg/dL Creatinine 0.93 0.57-1.00 mg/dL eGFR 64 >59 mL/min/1.73 BUN/Creatinine Ratio 13 12-28 Sodium 141 134-144 mmol/L Potassium 4.2 3.5-5.2 mmol/L Chloride 102 96-106 mmol/L Carbon Dioxide, Total 21 20-29 mmol/L Calcium 9.0 8.7-10.3 mg/dL Protein, Total 6.9 6.0-8.5 g/dL Albumin 4.5 3.8-4.8 g/dL Globulin, Total 2.4 1.5-4.5 g/dL Bilirubin, Total 0.7 0.0-1.2 mg/dL Alkaline Phosphatase 119 44-121 IU/L AST (SGOT) 22 0-40 IU/L ALT (SGPT) 22 0-32 IU/L Reason For Referral Reason Please evaluate and treat Diagnosis 1 Solitary pulmonary n odule (R91.1) Referral Organization [facility] Referring Provider First Name Kaitymauriceanthony Referring Provider Last Name Onur Referred Provider Specialty Pulmonary Di seases General Notes Referral faxed to [facility]. The office will call the patient to schedule. Donna Walton 07/07/2024 03:32:16 PM > Referral Priority Urgent Reason Dr. 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 Please contact the patient to schedule. Referral Priority Routine Reason itching Please mukesh luate and treat Diagnosis 1 Pruritus, unspecifie d (L29.9) Referral Organization [facility] Referring Provider First Name GAYTAN Referring Provider Last Name [facility] Referring Provider Speciality [facility] Referred Provider Specialty Dermatology General Notes Please call the radha ent to schedule the appointment, [facility]. Please contact them at [phone], Linda Harvey 01/14/2025 04:13:40 PM > Referral Priority Routine Reason heart attack follow up please evaluate and treat Diagnosis 1 Encounter for follow -up examination after completed treatment for conditions other than malignant neoplasm (Z09) Referral Organization [facility] Referring Provider First Name GAYTAN Referring Provider Last Name [facility] Referred Provider Specialty Cardiology General Notes referral was faxed t [facility]. Please contact patient for scheduling.Nerissa Rashida 02/22/2025 04:26:45 PM > Referral Priority Routine Reason Evaluation and manag ement Wound care Please evaluate and treat Diagnosis 1 Encounter for change or removal of nonsurgical wound dressing (Z48.00) Referral Organization [facility] Referring Provider First Name GAYTAN Referring Provider Last Name [facility] Referring Provider Speciality [facility] Referred Provider Specialty Other Medica l Care General Notes Please call the radha ent to schedule the appointment, Encounter created and SMS sent to the pt., Linda Harvey 04/01/2025 04:29:09 PM > Referral Priority Routine Reason Evaluation and manag ement Please evaluate and treat Diagnosis 1 Local infection of t he skin and subcutaneous tissue, unspecified (L08.9) Referral Organization [facility] Referring Provider First Name LUCILA Referring Provider Last Name CONSUELO Referring Provider Speciality Internal [facility] Referred Provider Specialty Other Medica l Care General Notes Please call the radha ent to schedule the appointment, Encounter created and SMS sent to the pt.Wes Charmain 04/09/2025 04:31:24 PM > Referral Priority Routine Medications Medication SIG (Take, Route, Frequency, Duration) Notes Start Date End Date Status Claritin 10 MG 1 tablet Orally Once a day Active Fluticasone Furoate-Vilanterol 100-25 MCG/ACT 1 puff Inhalation Once a day; Duration: 30 days 05/15/2024 Not-Taking Azithromycin 250 MG as directed Orally 2 tablets on the first day, then 1 tablet daily; Duration: 5 days 04/29/2024 Not-Taking guaiFENesin-Codeine 200-8 MG/5ML 5 mL as needed Orally every 6 hrs; Duration: 14 days 04/29/2024 Not-Taking predniSONE 20 MG 1 tablet Orally Once a day; Duration: 7 days 04/29/2024 Not-Taking Clopidogrel Bisulfate 75 MG 1 tablet Orally Once a day; Duration: 30 days Not-Takin g Albuterol Sulfate HFA 108 (90 Base) MCG/ACT 1 puff as needed Inhalation every 4 hrs; Duration: 30 days Active Symbicort 80-4.5 MCG/ACT 1 puff as neede d Inhalation Twice a day; Duration: 30 days 05/21/2024 Not-Takin g Ethacrynic Acid 25 MG 1 tablet with food or milk Orally daily Not-Taking predniSONE 10 MG take 4 tablets a day for 3 days, then 3 tablets a day for 3 days, then 2 tablets a day for 3 days, then 1 tablet a day for 3 days Orally Once a day; Duration: 12 days 05/15/2024 Not-Takin g Nystatin 815624 UNIT/GM 1 application Externally Twice a day; Duration: 30 days 09/09/2024 Active Pantoprazole Sodium 40 MG 1 tablet Orall y twice a day; Duration: 90 days Active Metoprolol Succinate ER 50 MG TAKE 1 TABLET BY MOUTH EVERY DAY FOR 30 DAYS; Duration: 30 Active Aspirin Low Dose 81 MG TAKE 1 TABLET BY MOUTH EVERY DAY FOR 30 DAYS; Duration: 30 Active Delsym Cgh/Chest Pineda DM Child 5-100 MG/5ML as directed Orally Not -Taking Atorvastatin Calcium 80 MG TAKE 1 TABLET BY MOUTH EVERY DAY FOR 30 DAYS; Duration: 30 Active Robitussin Cold Cough+ Chest prn Not-Taking hydrOXYzine HCl 25 MG TAKE 1 TABLET BY M OUTH EVERY DAY NEEDED FOR 30 DAYS; Duration: 30 Active Breo Ellipta 200-25 MCG/ACT INHALE 1 PUFF INTO THE LUNGS EVERY DAY; Duration: 30 days Active diphenhydrAMINE HCl 25 MG 1 capsule at b edtime as needed Orally Once a day; Duration: 2 days 10/29/2024 Not-Taking Levocetirizine Dihydrochloride 5 MG 1 tablet in the evening Orally Once a day; Duration: 30 days 04/08/2025 Not-Takin g Doxycycline Hyclate 100 MG 1 tablet Oral ly twice a day; Duration: 7 days 04/08/2025 Not-Taking Benzonatate 200 MG 1 capsule as needed Orally twice a day; Duration: 7 days 03/31/2024 Not-Taking Breo Ellipta 100-25 MCG/ACT 1 puff Inhalation Once a day; Duration: 30 days 05/18/2024 Not-Taking Trelegy Ellipta 200-62.5-25 MCG/ACT 1 puff Inhalation Once a day; Duration: 30 days 07/22/2024 Not-Taking Immunizations Vaccine Route Administration Date Status Comme nts COVID Delmy Unknown 02/13/2021 Administered Td (adult), absorbed Unknown 10/08/2018 Administered Td (adult), absorbed Unknown 05/23/2023 Administered Social History Tobacco Use: Social History Observation Description Date Details (start date - stop date) Never Smoker NA - NA Tobacco Use/Smoking Question Answer Notes Are you a nonsmoker Problems Problem Type SNOMED Code ICD Code Onset Dates Problem Status W/U Status Risk Notes Problem Non-toxic single thyroid nodule (079297305) Nontoxic single thyroid nodule (E04.1) Active confirmed Problem Non-toxic multinodular goiter (52522097) Nontoxic multinodular goiter (E04.2) Active confirmed Problem Mixed hyperlipidemia (686947256) Mixed hyperlipidemia (E78.2) Active confirmed Problem Essential hypertension (42420009) Essential (primary) hypertension (I10) Active confirmed Problem Coronary arteriosclerosis of coronary artery bypass graft (674797658) Atherosclerosis of coronary artery bypass graft(s) without angina pectoris (I25.810) Active confirmed Problem Gastro-esophageal reflux disease without esophagitis (625855275) Gastro-esophageal reflux disease without esophagitis (K21.9) Active confirmed Problem Diaphragmatic hernia (26701239) Diaphragmatic hernia without obstruction or gangrene (K44.9) Active confirmed Problem Diverticulitis of colon (624838863) Diverticulitis of large intestine without perforation or abscess without bleeding (K57.32) Active confirmed Problem Fatty liver (548144731) Fatty (change of) liver, not elsewhere classified (K76.0) Active confirmed Problem Osteoarthritis (404227281) Polyosteoarthritis , unspecified (M15.9) Active confirmed Problem Congenital tracheomalacia (99749778) 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) Active confirmed Problem Abnormal gait (76457290) Unsteadiness on feet (R26.81) Active confirmed Problem Abnormal gait (63341242) Other abnormalities of gait and mobility (R26.89) Active confirmed Problem Solitary pulmonary nodule (645015733) Solitary pulmonary nodule (R91.1) Active confirmed Problem Imaging result abnormal (527476040) Abnormal findings on diagnostic imaging of other specified body structures (R93.89) Active confirmed Problem Chronic kidney disease stage 3A (disorder) (838009132) Chronic kidney disease, stage 3a (N18.31) Active confirmed Problem Chronic bdmu-MBAXG-45 syndrome (disorder) (9543433467) Hbri-BFLXW-25 condition (B94.8) Active confirmed Problem Chronic nlwg-TXDZZ-21 syndrome (disorder) (9690595628) Oofy-URLYX-89 syndrome (B94.8) Active confirmed Problem 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) (2076155320) Post COVID-19 condition, 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) Active confirmed Vital Signs Heart Rate 97 /min 01/12/2025 Temperature 98.3 degrees Fahrenheit 01/12/2025 Oximetry 98 % 01/12/2025 Blood pressure diastolic 70 mm Hg 01/12/2025 Height 4'1 in 01/12/2025 Blood pressure systolic 124 mm Hg 01/12/2025 Weight 195.3 lbs 01/12/2025 BMI 57.18 kg/m2 01/12/2025 Encounters Encounter Location Date Provider Diagnosis [address] [place] [address] 07/07/2024 Ghadeer Mazloum Essential (primary) hypertension I10 ; Cough R05.9 and Gastro-esophageal reflux disease without esophagitis K21.[address] [place] [address] 07/22/2024 Ghadeer Mazloum Essential (primary) hypertension I10 and Cough, unspecified R05.[address] [place] [address] 09/03/2024 [facility] discharge follow-up Z09 [address] [place] [address] 10/29/2024 [facility] Slurred speech R47.8 1 ; Cough, unspecified R05.9 and Post COVID-19 condition, unspecified U09.[address] [place] [address] 01/12/2025 LUCILA CORDERO Encounter for genera l adult medical examination without abnormal findings Z00.00 ; Atherosclerosis of coronary artery bypass graft(s) without angina pectoris I25.810 ; Essential (primary) hypertension I10 ; Mixed hyperlipidemia E78.2 ; Pruritus, unspecified L29.9 ; Prediabetes R73.03 ; Chronic kidney disease, stage 3a N18.31 and Other abnormalities of gait and mobility R26.[address] [place] [address] 04/08/2025 LUCILA CORDERO Local infection of t he skin and subcutaneous tissue, unspecified L08.[address] [place] [address] 06/29/2025 LUCILA CORDERO [address] [place] [address] 07/07/2024 Ghadeer Mazloum Nontoxic multinodula r goiter E04.[address] [place] [address] 07/09/2024 [facility] E04.2 [facility] [address] [place] [address] 07/13/2024 Ghadeer Mazloum [facility] [address] [place] [address] 07/14/2024 [facility] [address] [place] [address] 08/27/2024 [facility] [address] [place] [address] 08/28/2024 [facility] [address] [place] [address] 09/09/2024 [facility] [address] [place] [address] 09/16/2024 [facility] [address] [place] [address] 09/24/2024 [facility] [address] [place] [address] 10/23/2024 Kaityadeer Ganeshloum [facility] [address] [place] [address] 10/28/2024 [facility] [address] [place] [address] 10/28/2024 [facility] [address] [place] [address] 10/29/2024 [facility] [address] [place] [address] 12/01/2024 [facility] [address] [place] [address] 12/01/2024 [facility] [address] [facility] [place] [address] 12/04/2024 [facility] [address] [facility] [place] [address] 02/03/2025 [facility] [address] [facility] [place] [address] 03/29/2025 [facility] [address] [facility] [place] [address] 04/01/2025 [facility] [address] [facility] [place] [address] 04/05/2025 [facility] [address] [place] [address] 04/08/2025 [facility] [address] [facility] [place] [address] 04/14/2025 [facility] [address] [facility] [place] [address] 04/16/2025 [facility] [address] [facility] [place] [address] 04/16/2025 [facility] [address] [facility] [place] [address] 04/20/2025 [facility] [address] [place] [address] 04/28/2025 [facility] [address] [place] [address] 07/07/2024 [facility] [address] [facility] [place] [address] 07/10/2024 [facility] [address] [place] [address] 07/16/2024 [facility] [address] [place] [address] 07/23/2024 GAYTAN GUL Cough R05.9 and Gastro-esophageal reflux disease without esophagitis K21.9 [facility] [address] [place] [address] 07/24/2024 [facility] [address] [place] [address] 08/04/2024 GAYTAN GUL Essential (primary) hypertension I10 [facility] [address] [place] [address] 08/05/2024 GAYTAN GUL Essential (primary) hypertension I10 [facility] [address] [place] [address] 08/14/2024 [facility] [address] [place] [address] 08/14/2024 GAYTAN GUL Cough R05.9 [facility] [address] [place] [address] 08/16/2024 [facility] [address] [place] [address] 09/04/2024 [facility] [address] [place] [address] 09/08/2024 [facility] [address] [place] [address] 09/09/2024 [facility] [address] [place] [address] 09/16/2024 Sanjiv Andersenloum [facility] [address] [place] [address] 09/18/2024 [facility] [address] [place] [address] 09/25/2024 [facility] [address] [place] [address] 09/25/2024 [facility] [address] [place] [address] 10/23/2024 GAYTAN GUL [facility] [address] [place] [address] 11/06/2024 GAYTAN L [facility] [address] [place] [address] 11/26/2024 GAYTAN GUL Cough R05.9 [facility] [address] [place] [address] 11/27/2024 GAYTAN GUL Cough, unspecified R05.9 [facility] [address] [place] [address] 12/01/2024 GAYTAN [facility] [address] [place] [address] 12/02/2024 GAYTAN [facility] [address] [place] [address] 01/22/2025 [facility] [address] [place] [address] 01/28/2025 GAYTAN [facility] [address] [place] [address] 02/02/2025 GAYTAN GUL Cough R05.9 [facility] [address] [place] [address] 02/22/2025 GAYTAN [facility] [address] [place] [address] 04/15/2025 GAYTAN GUL Local infection of t he skin and subcutaneous tissue, unspecified L08.9 [facility] [address] [place] [address] 04/15/2025 [facility] [address] [place] [address] 05/07/2025 GAYTAN GUL Assessments Encounter Date Diagnosis (ICD Code) Assessment Notes Treatment Notes Treatment Clinical Notes Section Notes 07/07/2024 Essential (primary) hypertension (ICD-10 - I10) Yaquelin is 73 years old lady with acid [...] patient but was available upon request 07/07/2024 Cough (ICD-10 - R05.9) Yaquelin is 73 years old lady with acid [...] 07/22/2024 Essential (primary) hypertension (ICD-10 - I10) Yaquelin is 74 years old lady with [...] patient but was available upon request 07/23/2024 Cough (ICD-10 - R05.9) 08/04/2024 Essential (primary) hypertension (ICD-10 - I10) 08/05/2024 Essential (primary) hypertension (ICD-10 - I10) 08/14/2024 Cough (ICD-10 - R05.9) 09/03/2024 Hospital discharge follow-up (ICD-10 - Z09) 74-year-old lady with history of hypertension hyperlipidemia GERD post Kober syndrome hepatic steatosis who was admitted to [facility] on 08/16/24 for management of cough and shortness of breath she was found to have a ST elevation OH patient is here for a post hospital discharge, she was discharged on 08/23/24. ST elevation OH status post stent placement mid RCA DS, [...] to be following up with pulmonology at [facility] however the daughter told me that they are going to Dr. Amos pulmonology in [place]. Thyroid nodule she has history of subclinical hypothyroidism, in the past there was a question of a biopsy, at the time this was not followed up as patient went to the hospital and had an ST elevation OH. Currently she is on aspirin and Plavix. [...] of post coitus syndrome, hypertension, ST elevation OH status post stent, chronic cough tracheomalacia is [...] wrap's and elevation History of ST elevation OH status post stent placement mid RCA DS, left main is 45% stenosis but medically treated. Patient was seen by Dr. Santos she will follow up as an outpatient with district cardiology in 4-6 weeks. Continue with aspirin, continue Plavix 75 Fouzia daily atorvastatin 80 mg daily and metoprolol Lung nodulet followed by Dr. Amos pulmonology in [place] .Thyroid nodule she has history of subclinical hypothyroidism, multiple questions were answered today, spoke to patient's and daughter at length 11/26/2024 Cough (ICD-10 - R05.9) 11/27/2024 Cough, unspecified (ICD-10 - R05.9) 02/02/2025 Cough (ICD-10 - R05.9) 04/08/2025 Local infection of the skin and subcutaneous tissue, unspecified (ICD-10 - L08.9) Yaquelin is 74 years old with non-ST elevation OH, hypertension, hyperlipidemia, GERD, obesity called today for multiple eruptions on her skin. She went recently to the emergency room where she was diagnosed with dermatitis and she was given antihistamines and initially she was prescribed a Medrol pack and then she was told not to take Medrol Micah because she has upcoming appointment with dermatology. Plan is as follows Multiple small skin eruptions. Differential diagnosis is disseminated MRSA infection, autoimmune skin disease, drug allergy cannot be rule out. At this point she will be treated with doxycycline 100 mg 1 tablet twice a day for 7 days and she cannot use antihistamines. Keep the area clean and use bacitracin ointment on the open lesions and on other parts of the skin she can use calamine lotion or Caladryl for itching. She has appointment with attacher in the next couple weeks. she also requested [facility] for wound care and multiple skin eruptions. this visit was conducted over telephone in line with National Social Distancing Guidelines. Data gathered during this visit by patient self-report. Patient provided verbal consent to conduct the visit by telemedicine. Patient understands that it is a billable visit. Patient located in a home setting in [facility] during this telemedicine visit. Provider located at [facility] in [place] in [facility] 04/15/2025 Local infection of the skin and subcutaneous tissue, unspecified (ICD-10 - L08.9) 01/12/2025 Atherosclerosis of coronary artery bypass graft(s) without angina pectoris (ICD-10 - I25.810) Yanique is 74 years old lady with coronary artery disease and status post RUFUS to RCA and 45% stenosis of left main, hypertension, hyperlipidemia, gait instability and she uses a walker, obesity, CKD stage IIIa, pruritus and tracheomalacia and she follows up with Dr. Amos at [facility], GERD, multiple joint osteoarthritis, fatty liver and hiatal hernia is here today for annual physical. She is accompanied by her and her daughter is on the phone. Coronary artery disease. Currently she goes to cardiac rehab at [facility] and she is on metoprolol ER 50 mg 1 tablet daily, Plavix 75 mg daily and atorvastatin 80 mg daily. We will check lipid panel. She follows up with cardiology. Hypertension/hype rlipidemia. Blood pressure reasonably controlled on metoprolol ER 50 mg and she is also on ethacrynic acid 25 mg daily. continue atorvastatin 80 mg daily. 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 Acid reflux. She is on Protonix 40 mg 1 tablet twice a day Pruritus. She has dry skin and there are silvery patches on the arms. There may be a question of diffuse psoriasis. Continue antihistamines and she is given referral to dermatology. Chronic kidney disease stage IIIa. Stable at this point and she does not appear to be in volume overload. Gait instability. Differential is also arthritis, deconditioning, obesity. She uses a walker to walk and currently she is going to cardiac rehab. Screening blood work ordered. She is full code and her Mr. Chavez is her healthcare proxy. MOLST form discussed with the patient and her . She is not interested in colon screening and vaccinations. She is interested in bone density study which we will offer. 01/12/2025 Encounter for general adult medical examination without abnormal findings (ICD-10 - Z00.00) Yanique is 74 years old lady with coronary artery disease and status post RUFUS to RCA and 45% stenosis of left main, hypertension, hyperlipidemia, gait instability and she uses a walker, obesity, CKD stage IIIa, pruritus and tracheomalacia and she follows up with Dr. Amos at [facility], GERD, multiple joint osteoarthritis, fatty liver and hiatal hernia is here today for annual physical. She is accompanied by her and her daughter is on the phone. Coronary artery disease. Currently she goes to cardiac rehab at [facility] and she is on metoprolol ER 50 mg 1 tablet daily, Plavix 75 mg daily and atorvastatin 80 mg daily. We will check lipid panel. She follows up with cardiology. Hypertension/hype rlipidemia. Blood pressure reasonably controlled on metoprolol ER 50 mg and she is also on ethacrynic acid 25 mg daily. continue atorvastatin 80 mg daily. 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 Acid reflux. She is on Protonix 40 mg 1 tablet twice a day Pruritus. She has dry skin and there are silvery patches on the arms. There may be a question of diffuse psoriasis. Continue antihistamines and she is given referral to dermatology. Chronic kidney disease stage IIIa. Stable at this point and she does not appear to be in volume overload. Gait instability. Differential is also arthritis, deconditioning, obesity. She uses a walker to walk and currently she is going to cardiac rehab. Screening blood work ordered. She is full code and her Mr. Chavez is her healthcare proxy. MOLST form discussed with the patient and her . She is not interested in colon screening and vaccinations. She is interested in bone density study which we will offer. 01/12/2025 Essential (primary) hypertension (ICD-10 - I10) Yanique is 74 years old lady with coronary artery disease and status post RUFUS to RCA and 45% stenosis of left main, hypertension, hyperlipidemia, gait instability and she uses a walker, obesity, CKD stage IIIa, pruritus and tracheomalacia and she follows up with Dr. Amos at [facility], GERD, multiple joint osteoarthritis, fatty liver and hiatal hernia is here today for annual physical. She is accompanied by her and her daughter is on the phone. Coronary artery disease. Currently she goes to cardiac rehab at [facility] and she is on metoprolol ER 50 mg 1 tablet daily, Plavix 75 mg daily and atorvastatin 80 mg daily. We will check lipid panel. She follows up with cardiology. Hypertension/hype rlipidemia. Blood pressure reasonably controlled on metoprolol ER 50 mg and she is also on ethacrynic acid 25 mg daily. continue atorvastatin 80 mg daily. 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 Acid reflux. She is on Protonix 40 mg 1 tablet twice a day Pruritus. She has dry skin and there are silvery patches on the arms. There may be a question of diffuse psoriasis. Continue antihistamines and she is given referral to dermatology. Chronic kidney disease stage IIIa. Stable at this point and she does not appear to be in volume overload. Gait instability. Differential is also arthritis, deconditioning, obesity. She uses a walker to walk and currently she is going to cardiac rehab. Screening blood work ordered. She is full code and her Mr. Chavez is her healthcare proxy. MOLST form discussed with the patient and her . She is not interested in colon screening and vaccinations. She is interested in bone density study which we will offer. 10/29/2024 Cough, unspecified (ICD-10 - R05.9) 74-yrs with history of post coitus syndrome, hypertension, ST elevation [place] status post stent, chronic cough tracheomalacia is [...] wrap's and elevation History of ST elevation OH status post stent placement mid RCA DS, left main is 45% stenosis but medically treated. Patient was seen by Dr. Santos she will follow up as an outpatient with [facility] in 4-6 weeks. Continue with aspirin, continue Plavix 75 Essie daily atorvastatin 80 mg daily and metoprolol Lung nodulet followed by Dr. Amos pulmonology in [place] .Thyroid nodule she has history of subclinical hypothyroidism, multiple questions were answered today, spoke to patient's and daughter at length 07/22/2024 Cough, unspecified (ICD-10 - R05.9) Yaquelin is 74 years old lady with [...] reflux disease without esophagitis (ICD-10 - K21.9) 07/07/2024 Gastro-esophageal reflux disease without esophagitis (ICD-10 - K21.9) Yaquelin is 73 years old lady with acid [...] of post coitus syndrome, hypertension, ST elevation [place] status post stent, chronic cough tracheomalacia is [...] wrap's and elevation History of ST elevation [place] status post stent placement mid RCA DS, left main is 45% stenosis but medically treated. Patient was seen by Dr. Santos she will follow up as an outpatient with [facility] in 4-6 weeks. Continue with aspirin, continue Plavix 75 Essie daily atorvastatin 80 mg daily and metoprolol Lung nodulet followed by Dr. Amos pulmonology in [place] .Thyroid nodule she has history of subclinical hypothyroidism, multiple questions were answered today, spoke to patient's and daughter at length 01/12/2025 Mixed hyperlipidemia (ICD-10 - E78.2) Yanique is 74 years old lady with coronary artery disease and status post RUFUS to RCA and 45% stenosis of left main, hypertension, hyperlipidemia, gait instability and she uses a walker, obesity, CKD stage IIIa, pruritus and tracheomalacia and she follows up with Dr. Amos at [facility], GERD, multiple joint osteoarthritis, fatty liver and hiatal hernia is here today for annual physical. She is accompanied by her and her daughter is on the phone. Coronary artery disease. Currently she goes to cardiac rehab at [facility] and she is on metoprolol ER 50 mg 1 tablet daily, Plavix 75 mg daily and atorvastatin 80 mg daily. We will check lipid panel. She follows up with cardiology. Hypertension/hype rlipidemia. Blood pressure reasonably controlled on metoprolol ER 50 mg and she is also on ethacrynic acid 25 mg daily. continue atorvastatin 80 mg daily. 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 Acid reflux. She is on Protonix 40 mg 1 tablet twice a day Pruritus. She has dry skin and there are silvery patches on the arms. There may be a question of diffuse psoriasis. Continue antihistamines and she is given referral to dermatology. Chronic kidney disease stage IIIa. Stable at this point and she does not appear to be in volume overload. Gait instability. Differential is also arthritis, deconditioning, obesity. She uses a walker to walk and currently she is going to cardiac rehab. Screening blood work ordered. She is full code and her Mr. Chavez is her healthcare proxy. MOLST form discussed with the patient and her . She is not interested in colon screening and vaccinations. She is interested in bone density study which we will offer. 01/12/2025 Pruritus, unspecified (ICD-10 - L29.9) Yanique is 74 years old lady with coronary artery disease and status post RUFUS to RCA and 45% stenosis of left main, hypertension, hyperlipidemia, gait instability and she uses a walker, obesity, CKD stage IIIa, pruritus and tracheomalacia and she follows up with Dr. Amos at [facility], GERD, multiple joint osteoarthritis, fatty liver and hiatal hernia is here today for annual physical. She is accompanied by her and her daughter is on the phone. Coronary artery disease. Currently she goes to cardiac rehab at [facility] and she is on metoprolol ER 50 mg 1 tablet daily, Plavix 75 mg daily and atorvastatin 80 mg daily. We will check lipid panel. She follows up with cardiology. Hypertension/hype rlipidemia. Blood pressure reasonably controlled on metoprolol ER 50 mg and she is also on ethacrynic acid 25 mg daily. continue atorvastatin 80 mg daily. 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 Acid reflux. She is on Protonix 40 mg 1 tablet twice a day Pruritus. She has dry skin and there are silvery patches on the arms. There may be a question of diffuse psoriasis. Continue antihistamines and she is given referral to dermatology. Chronic kidney disease stage IIIa. Stable at this point and she does not appear to be in volume overload. Gait instability. Differential is also arthritis, deconditioning, obesity. She uses a walker to walk and currently she is going to cardiac rehab. Screening blood work ordered. She is full code and her Mr. Chavez is her healthcare proxy. MOLST form discussed with the patient and her . She is not interested in colon screening and vaccinations. She is interested in bone density study which we will offer. 01/12/2025 Prediabetes (ICD-10 - R73.03) Yanique is 74 years old lady with coronary artery disease and status post RUFUS to RCA and 45% stenosis of left main, hypertension, hyperlipidemia, gait instability and she uses a walker, obesity, CKD stage IIIa, pruritus and tracheomalacia and she follows up with Dr. Amos at [facility], GERD, multiple joint osteoarthritis, fatty liver and hiatal hernia is here today for annual physical. She is accompanied by her and her daughter is on the phone. Coronary artery disease. Currently she goes to cardiac rehab at [facility] and she is on metoprolol ER 50 mg 1 tablet daily, Plavix 75 mg daily and atorvastatin 80 mg daily. We will check lipid panel. She follows up with cardiology. Hypertension/hype rlipidemia. Blood pressure reasonably controlled on metoprolol ER 50 mg and she is also on ethacrynic acid 25 mg daily. continue atorvastatin 80 mg daily. 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 Acid reflux. She is on Protonix 40 mg 1 tablet twice a day Pruritus. She has dry skin and there are silvery patches on the arms. There may be a question of diffuse psoriasis. Continue antihistamines and she is given referral to dermatology. Chronic kidney disease stage IIIa. Stable at this point and she does not appear to be in volume overload. Gait instability. Differential is also arthritis, deconditioning, obesity. She uses a walker to walk and currently she is going to cardiac rehab. Screening blood work ordered. She is full code and her Mr. Chavez is her healthcare proxy. MOLST form discussed with the patient and her . She is not interested in colon screening and vaccinations. She is interested in bone density study which we will offer. 01/12/2025 Chronic kidney disease, stage 3a (ICD-10 - N18.31) Yanique is 74 years old lady with coronary artery disease and status post RUFUS to RCA and 45% stenosis of left main, hypertension, hyperlipidemia, gait instability and she uses a walker, obesity, CKD stage IIIa, pruritus and tracheomalacia and she follows up with Dr. Amos at [facility], GERD, multiple joint osteoarthritis, fatty liver and hiatal hernia is here today for annual physical. She is accompanied by her and her daughter is on the phone. Coronary artery disease. Currently she goes to cardiac rehab at [facility] and she is on metoprolol ER 50 mg 1 tablet daily, Plavix 75 mg daily and atorvastatin 80 mg daily. We will check lipid panel. She follows up with cardiology. Hypertension/hype rlipidemia. Blood pressure reasonably controlled on metoprolol ER 50 mg and she is also on ethacrynic acid 25 mg daily. continue atorvastatin 80 mg daily. 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 Acid reflux. She is on Protonix 40 mg 1 tablet twice a day Pruritus. She has dry skin and there are silvery patches on the arms. There may be a question of diffuse psoriasis. Continue antihistamines and she is given referral to dermatology. Chronic kidney disease stage IIIa. Stable at this point and she does not appear to be in volume overload. Gait instability. Differential is also arthritis, deconditioning, obesity. She uses a walker to walk and currently she is going to cardiac rehab. Screening blood work ordered. She is full code and her Mr. Chavez is her healthcare proxy. MOLST form discussed with the patient and her . She is not interested in colon screening and vaccinations. She is interested in bone density study which we will offer. 01/12/2025 Other abnormalities of gait and mobility (ICD-10 - R26.89) Yanique is 74 years old lady with coronary artery disease and status post RUFUS to RCA and 45% stenosis of left main, hypertension, hyperlipidemia, gait instability and she uses a walker, obesity, CKD stage IIIa, pruritus and tracheomalacia and she follows up with Dr. Amos at [facility], GERD, multiple joint osteoarthritis, fatty liver and hiatal hernia is here today for annual physical. She is accompanied by her and her daughter is on the phone. Coronary artery disease. Currently she goes to cardiac rehab at [facility] and she is on metoprolol ER 50 mg 1 tablet daily, Plavix 75 mg daily and atorvastatin 80 mg daily. We will check lipid panel. She follows up with cardiology. Hypertension/hype rlipidemia. Blood pressure reasonably controlled on metoprolol ER 50 mg and she is also on ethacrynic acid 25 mg daily. continue atorvastatin 80 mg daily. 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 Acid reflux. She is on Protonix 40 mg 1 tablet twice a day Pruritus. She has dry skin and there are silvery patches on the arms. There may be a question of diffuse psoriasis. Continue antihistamines and she is given referral to dermatology. Chronic kidney disease stage IIIa. Stable at this point and she does not appear to be in volume overload. Gait instability. Differential is also arthritis, deconditioning, obesity. She uses a walker to walk and currently she is going to cardiac rehab. Screening blood work ordered. She is full code and her Mr. Chavez is her healthcare proxy. MOLST form discussed with the patient and her . She is not interested in colon screening and vaccinations. She is interested in bone density study which we will offer. Plan Of Treatment Pending Test Test Name Order Date Bone Density 01/12/2025 CT Scan : Chest with contrast 04/29/2024 Ultrasound : Neck 04/29/2024 MRI : Brain without Contrast 06/30/2024 MR Brain WO 10/29/2024 US Thyroid 07/09/2024 Ultrasound: Needle Biopsy Thyroid-Rad Xray: Chest-Standard Frontal & Lat 06/30 Xray: Chest-Standard Frontal & Lat 04/29 Hepatitis B Surf Ab Quant-[id number] Hep B Core Ab, [id number] 04/29/2024 Next Appt Details Provider Name:LUCILA CORDERO , 07/13/2025 11:15:00 AM, [address] [place] [address], [id number], Insurance Providers Payer Name Payer Address Payer Phone Subscriber Number Group Number Insured Name Patient Relationship to Insured Coverage Start Date Coverage End Date [employer]PLETE [address] [address] [place] [phone] [id number] Yaquelin Chavez Self - patient is the insured Medical (General) History Medical History History ICD Code GERD arthritis, bilateral hand/thumb diverticulitis ST elevation [place] and status p ost RUFUS to RCA and 45% stenosis of Left main and optimize medical management Tracheomalacia and she follows up with Gopi Amos gait instability Obesity Surgical History Surgery Date(Month/Year) right total knee replacement left rotator cuff repair, left bicep mus dana -work related
--- OUTSIDE RECORDS SUMMARY | 2025-07-06 12:31 | XMS_ITS | Data Portability ---
Author Organization [place] [facility], Allergy Address [address] [address] [place] [address] Care Team Providers Care Seasonal Package Handler Name Role Phone CARA FELTON Primary Care Provider [phone] Assessment Encounter Date Assessment Date Assessment LastModified [...] . Referral speech therapy referral 2024 025 [facility], [address] [place] [address], 1[address] Floor, [place], [address], 11:03:59 Procedures None recorded . Surgeries None [...] Time Sensorineural hearing loss of bilateral ears [id number] Active 2023 ELIANA LORENZANA [address] [facility] [address], [place], [address], [place] - [facility] 4 10:35:36 Unsteady when walking 96907470 Active 2023 VANDANA REHMAN MD [address] [facility], [place], [address], [place] - [facility] 4 11:15:19 Chronic cough 18806347 Active 2024 CHRIS NUNEZ MD [address] [facility], [place], [address], [place] - [facility] 20:24:15 Vocal nodules in adults 10392828 Active 2024 CHRIS NUNEZ MD [address] [facility], [place], [address], [place] - [facility] 15:44:27 Tracheomalacia 90897571 Active 2024 CHRIS NUNEZ MD [address] [facility], [place], [address], [place] - [facility] 15:44:41 Problem Notes None recorded. Procedures Surgical History Date Name Laterality Status Provider Name and Address Organization Details Recorded Time 09/30/19 25 Fiberoptic Laryngoscopy (Comprehensive) completed CHRIS WARREN MD [address] [address], [place], [address], [facility] - [facility] 09/30/2024 15:44:06 02/06/20 24 Comp Audio with Tymps - 28728 & 11466 completed ELIANA LORENZANA [address] [facility],[address] [address], [place], [address], [place] - [facility] 02/06/2024 10:34:07 total knee replacement completed Brianna Daniels [place] - [facility] 02/06/2024 10:37:01 procedure on shoulder completed Brianna Daniels [place] [facility] 02/06/2024 10:37:09 complete repair of rotator cuff completed Brianna Daniels [facility] 02/06/2024 10:37:40 procedure on elbow completed Brianna Daniels [facility] 02/06/2024 10:38:13 Imaging Results None recorded. Procedure Notes None recorded. Medical Equipment None Reported. Allergies Allergen ID Allergen Name Allergen Category Reaction Reaction Severity Criticality Documentation Date Start Date Code Code System Note Provider Name and Address Organization Details Recorded Time 343541 Product containin g penicilli n (product) medicatio n Not available Not available Not available 02/06/2024 50498 8001 SNOMED Brianna pennington [place] [facility] 10:28:43 129482 Substance with sulfonami de structure and antibacte rial mechanism of action (substanc e) medicatio n Not available Not available Not available 02/06/2024 53029 8003 SNOMED Brianna pennington [place] [facility] 10:28:50 920581 wheat preparati on food,medi cation Not available Not available Not available 02/06/2024 96923 52 RxNorm Brianna pennington [place] [facility] 10:28:58 953661 soy environme nt,food,m edication Not available Not available Not available 02/06/2024 Brianna pennington [facility] 10:29:04 817222 shellfish derived food,medi cation Not available Not available Not available 02/06/2024 Brianna pennington [facility] 4 10:29:41 851202 iodine medicatio n Not available Not available Not available 09/30/2024 5933 RxNorm Brianna pennington [place] [facility] 5 15:46:41 999101 aspirin medicatio n Not available Not available Not available 09/30/2024 1191 RxNorm Brianna pennington [facility] 5 15:46:48 Medications Name Sig Start Date [...] Y GERD/Reflux Y Hyperlipidemia Y Heart Attack ([place]) Y Thyroid Problems Y Hypertension Y Gynecological HistoryNo gynecological history recorded. Obstetrics History GPAL:G 0 P 0 0 0 0 Past Encounters Encounter ID Performer Location Encounter Start Date Encounter Closed Date Diagnosis/Indication Diagnosis SNOMED-CT Code Diagnosis ICD10 Code Diagnosis IMO Codes Diagnosis Note [id number] ELIANA LORENZANA [facility] [address] [address] 02/06/2024 10:09:46 02/06/2024 11:15:27 Sensorineural hearing loss of bilateral ears 598536531 H90.3 Audiologic al evaluation results:Ri ght ear:Normal sloping at 2kHz to a mild to severe SNHL with excellent speech discrimina tion.Left ear:Normal sloping at 2kHz to a mild to severe SNHL with excellent speech discrimina tion. Tympanomet ry:Right Ear:Type ALeft Ear:Type As 3000 VANDANA REHMAN MD [facility] [address] [address] 02/06/2024 10:09:46 02/06/2024 11:15:27 Unsteady when walking 69215256 R26.89 Patient referred for evaluation of dizziness [...] Sensorineu ral hearing loss of bilateral ears 764733088 H90.3 Audiologic al evaluation results:Ri ght ear:Normal sloping at 2kHz to a mild to severe SNHL with excellent speech discrimina tion.Left ear:Normal sloping at 2kHz to a mild to severe SNHL with excellent speech discrimina tion. Tympanomet ry:Right Ear:Type ALeft Ear:Type As Patient is an excellent candidate to consider binaural amplificat ion. She is interested in learning more about this, so we will set her up for a hearing aid evaluation . [id number] CHRIS FREEMAN MD [facility] [address] [address] 09/30/2024 14:39:01 09/30/2024 15:53:55 Chronic cough 26493409 R05.3 Daughter reports chronic cough that was present prior to COVID but has been voice. I do not see any anatomical cause. Consider CT of sinus if sx persist. Vocal nodu les in adults 59810062 J38.2 Daughter reports voice is actually improved. There is small nodule on the right side. Speech is fluent. Daughter concerned about slurred speech Tracheomalacia 37152774 Q32.0 Sent by PCP here for management [...] Recorded Advance Directives Directive None Recorded Payers Insurance Date Sequence Insurance Name Policy Number Policy Ayala Covered Member ID Ayala Member ID Guarantor Name 09/30/2024 1 [facility] (MEDICARE REPLACEMENT/A DVANTAGE - HMO) [id number] Yaquelin Kelsi Scott [id number] Yaquelin Hauserth Scott Notes Date Note Type Note Provider Name and Address Organization Details Recorded Time 02/06/2024 text/html 73-year-old female who comes in today for evaluation of [...] lower extremity swelling lately. VANDANA REHMAN MD [address] [place] [address],[address], [address], [facility] - [facility] 02/06/2024 11:18:17 09/30/2024 text/html ROS as noted in the HPI cough since COVID 04/2024. Seeing pulmonary-Dr Ellsworth. Denies sinus issuesHad [...] scan showed tracheomalacia. CHRIS WARREN MD [address],[address], [place], [address], [facility] - [facility] 09/30/2024 17:13:25 OBGyn Episode No OBEpisode recorded.
--- OUTSIDE RECORDS SUMMARY | 2025-07-06 12:31 | XMS_ITS | Clinical Summary ---
Author Organization [facility] Address [address] [place] [address] Phone Care Team Providers Care Bundle Collector Name Role Phone Unknown, Unknown Primary Care Provider Unavai lable Allergies Active Allergy Reactions Criticality Noted Date Comments Aspirin Other (See Comments) 05/31/2010 epistaxis, severe bleeding age 7 Iodine GI Upset,Other (See Comments) 05/31/2010 red, flushed Penicillins Diarrhea,Hives,Itchi ng Medium 11/10/2015 Sulfa (Sulfonamide Antibiotics) Rash Medium 11/10/2015 Active Problems Problem Noted Date Diagnosed Date Rotator cuff syndrome 10/22/2010 Overview (10/23/2014): Rotator cuff syndrome; L, s/p repair 2008, sustained in injury Tendinitis 10/22/2010 Overview (10/23/2014): Shoulder tendinitis; L, occurred in injury, 2008, to have repair 10/13 Hyperlipidemia 10/22/2010 Overview (10/23/2014): Hyperlipidemia; declines medical treatment 1997: total cholesterol 310 triglycerides 159 HDL 48 LDL 230 (TSH 0.76), stable since then with no change Delivery normal 05/31/2010 Overview (10/23/2014): Delivery normal; times 2 Immunizations Immunization Administration Dates Next Due Influenza Nasal, Unspecified Formulation 09/30/2014(Deferred: Patient Decision - , Ordered By: [id number]) Influenza, Unspecified Formulation 08/16(Deferred: Patient Decision - , Ordered By: [id number]) Pneumococcal, Unspecified Formulation (Deferred: Patient Decision - 00),09/30/2014(Deferred: Patient Decision - , Ordered By: [id number]) Zoster live 11/10/2015(Deferred: Patient Decision - 00) Social History Tobacco Use Types Packs/Day Years Used Date Smoking Tobacco: Never Education Answer Date Recorded Are you interested in more education? Not on an e 12/27/2022 Are you concerned about learning? Not on file 12/27/2022 No 12/27/2022 No 12/27/2022 Digital Access Answer Date Recorded No 01/28/2023 No 01/28/2023 No 01/28/2023 Reliable internet access at home? Not on file 01/28/2023 Device with a working camera? Not on file Comments Unknown Sex and Gender Information Value Date Recorded Sex Assigned at Not on file Legal Sex Female 7:19 PM EST Gender Identity Not on file Sexual Orientation Not on file Last Filed Vital Signs Vital Sign Reading Time Taken Comments Blood Pressure 154/84 01/11/2016 12:09 PM EDT Pulse 86 01/11/2016 12:09 PM EDT Temperature 37.3 C (99.2 F) 09/30/2014 11:18 AM EST Respiratory Rate 16 05/31/2010 10:37 AM EDT Oxygen Saturation - - Inhaled Oxygen Concentration - - Weight 85.3 kg (188 lb) 01/11/2016 12:09 PM EDT Height 154.9 cm (5' 1 ) 11/10/2015 3:27 PM EST Body Mass Index 35.52 11/10/2015 3:27 PM EST Plan of Treatment Health Maintenance Due Date Last Done Comments LIPID PANEL 1949 DEPRESSION SCREENING 1961 SMOKING Hx and SMOKELESS TOB ACCO SCREENING 1962 HEPATITIS C SCREENING 1967 PNEUMOCOCCAL VACCINES (50+ y ears) (1 of 1 - PCV) 1999 ZOSTER VACCINES (1 of 2) 1999 OSTEOPOROSIS SCREENING INITI AL (ONE-TIME) 2014 RSV VACCINE (1 - 1-dose 75+ series) 2024 INFLUENZA VACCINE (#1) 2025 COVID-19 VACCINE (2 - 2024-2 6 season) 2025 02/13/2021 Adult Td,Tdap Booster 10/08/2028 10/08/2018 HEPATITIS A VACCINES Aged Out No long er eligible based on patient's age to complete this topic HIB VACCINES Aged Out No longer eligi ble based on patient's age to complete this topic MENINGOCOCCAL VACCINES (ACWY) Aged Out No longer eligible based on patient's age to complete this topic MENINGOCOCCAL VACCINES (B) Aged Out N o longer eligible based on patient's age to complete this topic Medical Devices Not on file [facility] [employer] [facility] PPO BLUE [place] OUT OF STATE PPO Member Subscriber Plan / Payer ( fective 2014-Present) Name:Yaquelin Youssef Relation to Subscriber:Spouse Name:BRIANNA YOUSSEF Date of :1946 (Home) Address: [address] [place] [address] Payer ID:[id number] (NAIC) Type:PPO Address: [address] [id number] [employer] [place] OUT OF STATE PPO BLUE [place] OUT OF STATE PPO BLUE [place] OUT OF [facility] PPO BLUE [place] OUT [place] STATE PPO BLUE [place] OUT OF [facility] PPO BLUE [place] OUT OF [place] PPO Care Teams Bundle Collector Relationship Specialty Start Date End Date Unknown, Unknown, PCP - General 09/21/19 Additional Source Comments The information contained in this document represents components of the legal health record. It is not the complete legal health record.[facility]
--- OUTSIDE RECORDS SUMMARY | 2025-07-06 12:31 | XMS_ITS ---
Author Name [facility] Organization Unknown Encounters Encounter Type Encounter Reason Primary Diagnosis Location Date Ambulatory ST elevation (STEMI) myocardial infarction of unspecified site (CMS/HCC V24, CMS/HCC V28) ST elevation (STEMI) myocardial infarction of unspecified site (CMS/HCC V24, CMS/HCC V28) [facility] 02/22/[address] elevation (STEMI) myocardial infarction of unspecified site (CMS/HCC V24, CMS/HCC V28) ST elevation (STEMI) myocardial infarction of unspecified site (CMS/HCC V24, CMS/HCC V28) [facility] 02/18/[address] elevation (STEMI) myocardial infarction of unspecified site (CMS/HCC V24, CMS/HCC V28) ST elevation (STEMI) myocardial infarction of unspecified site (CMS/HCC V24, CMS/HCC V28) [facility] 02/17/[address] elevation (STEMI) myocardial infarction of unspecified site (CMS/HCC V24, CMS/HCC V28) ST elevation (STEMI) myocardial infarction of unspecified site (CMS/HCC V24, CMS/HCC V28) [facility] 02/11/[address] elevation (STEMI) myocardial infarction of unspecified site (CMS/HCC V24, CMS/HCC V28) ST elevation (STEMI) myocardial infarction of unspecified site (CMS/HCC V24, CMS/HCC V28) [facility] 02/10/[address] elevation (STEMI) myocardial infarction of unspecified site (CMS/HCC V24, CMS/HCC V28) ST elevation (STEMI) myocardial infarction of unspecified site (CMS/HCC V24, CMS/HCC V28) [facility] 02/08/[address] elevation (STEMI) myocardial infarction of unspecified site (CMS/HCC V24, CMS/HCC V28) ST elevation (STEMI) myocardial infarction of unspecified site (CMS/HCC V24, CMS/HCC V28) [facility] 02/03/[address] elevation (STEMI) myocardial infarction of unspecified site (CMS/HCC V24, CMS/HCC V28) ST elevation (STEMI) myocardial infarction of unspecified site (CMS/HCC V24, CMS/HCC V28) [facility] 02/01/[address] elevation (STEMI) myocardial infarction of unspecified site (CMS/HCC V24, CMS/HCC V28) ST elevation (STEMI) myocardial infarction of unspecified site (CMS/HCC V24, CMS/HCC V28) [facility] 01/28/[address] elevation (STEMI) myocardial infarction of unspecified site (CMS/HCC V24, CMS/HCC V28) ST elevation (STEMI) myocardial infarction of unspecified site (CMS/HCC V24, CMS/HCC V28) [facility] 01/27/[address] elevation (STEMI) myocardial infarction of unspecified site (CMS/HCC V24, CMS/HCC V28) ST elevation (STEMI) myocardial infarction of unspecified site (CMS/HCC V24, CMS/HCC V28) [facility] 01/22/[address] elevation (STEMI) myocardial infarction of unspecified site (CMS/HCC V24, CMS/HCC V28) ST elevation (STEMI) myocardial infarction of unspecified site (CMS/HCC V24, CMS/HCC V28) [facility] 01/21/[address] elevation (STEMI) myocardial infarction of unspecified site (CMS/HCC V24, CMS/HCC V28) ST elevation (STEMI) myocardial infarction of unspecified site (CMS/HCC V24, CMS/HCC V28) [facility] 01/18/[address] elevation (STEMI) myocardial infarction of unspecified site (CMS/HCC V24, CMS/HCC V28) ST elevation (STEMI) myocardial infarction of unspecified site (CMS/HCC V24, CMS/HCC V28) [facility] 01/07/[address] elevation (STEMI) myocardial infarction of unspecified site (CMS/HCC V24, CMS/HCC V28) ST elevation (STEMI) myocardial infarction of unspecified site (CMS/HCC V24, CMS/HCC V28) [facility] 01/06/[address] elevation (STEMI) myocardial infarction of unspecified site (CMS/HCC V24, CMS/HCC V28) ST elevation (STEMI) myocardial infarction of unspecified site (CMS/HCC V24, CMS/HCC V28) [facility] 01/04/[address] elevation (STEMI) myocardial infarction of unspecified site (CMS/HCC V24, CMS/HCC V28) ST elevation (STEMI) myocardial infarction of unspecified site (CMS/HCC V24, CMS/HCC V28) [facility] 12/31/[address] elevation (STEMI) myocardial infarction of unspecified site (CMS/HCC V24, CMS/HCC V28) ST elevation (STEMI) myocardial infarction of unspecified site (CMS/HCC V24, CMS/HCC V28) [facility] 12/30/[address] elevation (STEMI) myocardial infarction of unspecified site (CMS/HCC V24, CMS/HCC V28) ST elevation (STEMI) myocardial infarction of unspecified site (CMS/HCC V24, CMS/HCC V28) [facility] 12/28/[address] elevation (STEMI) myocardial infarction of unspecified site (CMS/HCC V24, CMS/HCC V28) ST elevation (STEMI) myocardial infarction of unspecified site (CMS/HCC V24, CMS/HCC V28) [facility] 12/28/[address] elevation (STEMI) myocardial infarction of unspecified site (CMS/HCC V24, CMS/HCC V28) ST elevation (STEMI) myocardial infarction of unspecified site (CMS/HCC V24, CMS/HCC V28) [facility] 12/23/[address] elevation (STEMI) myocardial infarction of unspecified site (CMS/HCC V24, CMS/HCC V28) ST elevation (STEMI) myocardial infarction of unspecified site (CMS/HCC V24, CMS/HCC V28) [facility] 12/16/[address] elevation (STEMI) myocardial infarction of unspecified site (CMS/HCC V24, CMS/HCC V28) ST elevation (STEMI) myocardial infarction of unspecified site (CMS/HCC V24, CMS/HCC V28) [facility] 12/14/[address] elevation (STEMI) myocardial infarction of unspecified site (CMS/HCC V24, CMS/HCC V28) ST elevation (STEMI) myocardial infarction of unspecified site (CMS/HCC V24, CMS/HCC V28) [facility] 12/07/[address] elevation (STEMI) myocardial infarction of unspecified site (CMS/HCC V24, CMS/HCC V28) ST elevation (STEMI) myocardial infarction of unspecified site (CMS/HCC V24, CMS/HCC V28) [facility] 12/03/[address] elevation (STEMI) myocardial infarction of unspecified site (CMS/HCC V24, CMS/HCC V28) ST elevation (STEMI) myocardial infarction of unspecified site (CMS/HCC V24, CMS/HCC V28) [facility] 12/02/[address] elevation (STEMI) myocardial infarction of unspecified site (CMS/HCC V24, CMS/HCC V28) ST elevation (STEMI) myocardial infarction of unspecified site (CMS/HCC V24, CMS/HCC V28) [facility] 11/30/[address] elevation (STEMI) myocardial infarction of unspecified site ST elevation (STEMI) myocardial infarction of unspecified site [facility] 11/26/[address] elevation (STEMI) myocardial infarction of unspecified site ST elevation (STEMI) myocardial infarction of unspecified site [facility] 11/25/[address] elevation (STEMI) myocardial infarction of unspecified site ST elevation (STEMI) myocardial infarction of unspecified site [facility] 11/23/[address] elevation (STEMI) myocardial infarction of unspecified site ST elevation (STEMI) myocardial infarction of unspecified site [facility] 11/19/[address] elevation (STEMI) myocardial infarction of unspecified site ST elevation (STEMI) myocardial infarction of unspecified site [facility] 11/18/[address] elevation (STEMI) myocardial infarction of unspecified site ST elevation (STEMI) myocardial infarction of unspecified site [facility] 11/16/[address] elevation (STEMI) myocardial infarction of unspecified site ST elevation (STEMI) myocardial infarction of unspecified site [facility] 11/12/[address] elevation (STEMI) myocardial infarction of unspecified site ST elevation (STEMI) myocardial infarction of unspecified site [facility] 11/11/[address] elevation (STEMI) myocardial infarction of unspecified site ST elevation (STEMI) myocardial infarction of unspecified site [facility] 11/10/2024 Care Team Organization Name Specialty Phone Email Start Date End Da te [facility] 11/14/2024 [facility] 11/10/2024
== END 2025-07-06 11:30 | disposition home or self-care (01) ==
LOC: HO.HPS 10:36
PROVIDERS: PCP Hospitalist; Visit Provider Hospitalist
DX: R05.3 Chronic cough (principal); U09.9 Post COVID-19 condition, unspecified; J39.8 Other specified diseases of upper respiratory tract; R91.1 Solitary pulmonary nodule; G47.33 Obstructive sleep apnea (adult) (pediatric); T78.40XA Allergy, unspecified, initial encounter; I50.9 Heart failure, unspecified; R09.89 Other specified symptoms and signs involving the circulatory and respiratory systems
CPT/HCPCS: 94010; 99215

== ENCOUNTER → 2025-07-06 11:52 | Outpatient (BNV) | payer MEDICARE, SELFPAY | PROVIDERS: PCP Hospitalist; Visit Provider Radiology Diagnostic Radiology | DX: R09.89 Other specified symptoms and signs involving the circulatory and respiratory systems (principal) | CPT/HCPCS: 71046 ==

== ENCOUNTER 2025-07-13 08:54 | Outpatient (REF) | payer MEDICARE, SELFPAY ==
--- OUTSIDE RECORDS SUMMARY | 2024-12-22 06:30 | XMS_ITS ---
Author Organization [facility] Address [address] [address] Care Team Providers Care Pipe Coremaker Name Role Phone LUCILA CORDERO Primary Care Provider [phone] Georgi Teran [phone] REASON FOR VISIT Medicare Wellness Encounters Encounter Location Date Provider Diagnosis [facility] [address] [address] 12/22/2024 Georgi Tierney Plan Of Treatment Next Appt Details Provider Name:LUCILA CORDERO , 08/05/2025 10:45:00 AM, [address] [place] [address], [place], [address], Progress Notes * Doris YOUSSEFOB: 9 (75 yo F)Acc No.[id number]:12/22/2024 Progress Note Patient: Yaquelin SWAN Provider: El Tierney, :1950 A ge:74 Y S ex:Female Date:12/22/2024 Address:[address] [place], [place] [id number] Pcp:LUCILA CORDERO Subjective: * Chief Complaints: * 1 . Medicare Wellness. * Medical History: Objective: * Vitals: Assessment: Plan: * Treatment: * Images: * Electronic signature of Reido sa Tierney on 07/13/2025 at 09:18 AM EST Sign off status: Pending * Provider: El Tierney, Date: 0 12/22/2024 Generated for Corbin johnston/Senia/Jayjay on: 1 09/12/2024 09:18 AM EST
--- OUTSIDE RECORDS SUMMARY | 2025-07-11 23:59 | XMS_ITS | Continuity of Care Document ---
Author Organization [facility] Address [address] [place] [phone] Care Team Providers Care Film Coater Name Role Phone Valentin Levi MD Primary Care Physician Encounter [facility] [place] Date(s): 06/11/25 - 07/11/25 [facility] [address] [place] [id number] Encounter Type: Triage Allergies, Adverse Reactions, Alerts Substance Criticality Severity Reaction Reaction Severity Status sulfADIAZINE Active Shellfish Active penicillins Active Fish Active iodine Active Medications Albuterol (Eqv-ProAir HFA) 90 mcg/inh inhalation aerosol 2 puffs, Inhalation, Every 6 hours, # 6.7 Gm, 0 Refills, Maintenance, 04/09/24 4:14:00 PM EDT, [facility]/pharmacy #[id number], Partial fill upon patient request if the prescription is for a schedule II opioid drug., 2 puffs Inhalation Every 6 hours, 155, cm, 04/08/24 12:13:00 EDT, Height, 98, kg, 04/03/24 14:47:00 EDT, Dry Weight Start Date: 04/09/24 Status: Ordered Medication Dispense Status: Completed Quantity: 6.7 Unit: g Total Allowed Fills: 1 Fills Dispensed: 0 aspirin 81 mg oral delayed release tablet 81 mg, 1, tablet, By Mouth, Daily, # 90 tablet, Refills 0, Tot. Refills 0, Maintenance, 08/23/24 12:13:00 PM EST, Route to Pharmacy Electronically, [facility], Partial fill upon patientrequest if the prescription is for a schedule II opioid drug., 154.94, cm, 08/23/24 7:47:00 EST, Height, 72.72, kg, 08/17/24 0:48:00 EST, Dry Weight Start Date: 08/23/24 Status: Ordered Medication Dispense Status: Completed Quantity: 90.0 Unit: tablet Total Allowed Fills: 1 Fills Dispensed: 0 atorvastatin 80 mg oral tablet = 80 mg, By Mouth, Daily, # 90 tablet, 0 Refills, Maintenance, 08/23/24 12:13:00 PM EST, Tablet, [facility], Partial fill upon patient request if the prescription is for a schedule II opioid drug., 154.94, cm, 08/23/24 7:47:00 EST, Height, 72.72, kg, 08/17/24 0:48:00 EST, Dry Weight Start Date: 08/23/24 Status: Ordered Medication Dispense Status: Completed Quantity: 90.0 Unit: tablet Total Allowed Fills: 1 Fills Dispensed: 0 benzonatate 100 mg oral capsule TAKE 1 CAPSULE BY MOUTH THREE TIMES A DAY NEEDED COUGH. WAIT 6-8 HOURS BETWEEN DOSES Start Date: 11/13/24 Status: Ordered Medication Dispense Status: Completed Total Allowed Fills: 1 Fills Dispensed: 0 Brilinta (ticagrelor) 90 mg oral tablet 1 tablet = 90 mg, By Mouth, 2 times a day, # 60 tablet, 0 Refills, Maintenance, 03/26/25 8:20:00 AM EDT, [facility]/pharmacy #[id number], Partial fill upon patient request if the prescription is for a schedule II opioid drug., 155, cm, 03/25/25 13:59:00 EDT, Height, 89.5, kg, 03/25/25 13:59:00 EDT, Dry Weight Start Date: 03/26/25 Status: Ordered Medication Dispense Status: Completed Quantity: 60.0 Unit: tablet Total Allowed Fills: 1 Fills Dispensed: 0 cetirizine 10 mg oral tablet 1 tablet = 10 mg, By Mouth, Daily, # 30 tablet, 0 Refills, Maintenance, 03/25/25 8:05:00 PM EDT, Tablet, [facility]/pharmacy #[id number], Partial fill upon patient request if the prescription is for a schedule II opioid drug., 155, cm, 03/25/25 13:59:00 EDT, Height, 89.5, kg, 03/25/25 13:59:00 EDT, Dry Weight Start Date: 03/25/25 Status: Ordered Medication Dispense Status: Completed Quantity: 30.0 Unit: tablet Total Allowed Fills: 1 Fills Dispensed: 0 hydrOXYzine hydrochloride 25 mg oral tablet 1 tablet = 25 mg, Daily, 0 Refills, Maintenance, 03/11/25 1:22:00 PM EDT, Partial fill upon patient request if the prescription is for a schedule II opioid drug. Start Date: 03/11/25 Status: Ordered Medication Dispense Status: Completed Total Allowed Fills: 1 Fills Dispensed: 0 levalbuterol 1.25 mg/3 mL inhalation solution 0 Refills, Maintenance, 11/13/24 11:40:00 AM EDT, Partial fill upon patient request if the prescription is for a schedule II opioid drug. Start Date: 11/13/24 Status: Ordered Medication Dispense Status: Completed Total Allowed Fills: 1 Fills Dispensed: 0 Medrol Dosepak 4 mg oral tablet 1 pack/packet, By Mouth, Once, # 21 tablet, 0 Refills, Soft Stop, 03/25/25 8:05:00 PM EDT, Tablet, [facility]/pharmacy #[id number], Partial fill upon patient request if the prescription is for a schedule II opioiddrug., 155, cm, 03/25/25 13:59:00 EDT, Height, 89.5, kg, 03/25/25 13:59:00 EDT, Dry Weight Start Date: 03/25/25 Status: Ordered Medication Dispense Status: Completed Quantity: 21.0 Unit: tablet Total Allowed Fills: 1 Fills Dispensed: 0 Metoprolol Succinate ER 50 mg oral tablet, extended release 50 mg, 1, tablet, By Mouth, Daily, # 90 tablet, Refills 0, Tot. Refills 0, Maintenance, 08/23/24 12:13:00 PM EST, Route to Pharmacy Electronically, [facility], Partial fill upon patientrequest if the prescription is for a schedule II opioid drug., 154.94, cm, 08/23/24 7:47:00 EST, Height, 72.72, kg, 08/17/24 0:48:00 EST, Dry Weight Start Date: 08/23/24 Status: Ordered Medication Dispense Status: Completed Quantity: 90.0 Unit: tablet Total Allowed Fills: 1 Fills Dispensed: 0 Multivitamin 0 Refills, Maintenance, 11/13/24 11:42:00 AM EDT, Partial fill upon patient request if the prescription is for a schedule II opioid drug. Start Date: 11/13/24 Status: Ordered Medication Dispense Status: Completed Total Allowed Fills: 1 Fills Dispensed: 0 nystatin topical [id number] u/gm cream 2 times a day, 0 Refills, Maintenance, 03/11/25 1:22:00 PM EDT, Partial fill upon patient request ifthe prescription is for a schedule II opioid drug. Start Date: 03/11/25 Status: Ordered Medication Dispense Status: Completed Total Allowed Fills: 1 Fills Dispensed: 0 pantoprazole 40 mg oral delayed release tablet = 40 mg, By Mouth, 2 times a day, # 90 tablet, 0 Refills, Maintenance, 08/23/24 1:20:00 PM EST, EC Tablet, 154.94, cm, 08/23/24 7:47:00 EST, Height, 72.72, kg, 08/17/24 0:48:00 EST, Dry Weight Start Date: 08/23/24 Status: Ordered Medication Dispense Status: Completed Quantity: 90.0 Unit: tablet Total Allowed Fills: 1 Fills Dispensed: 0 Robitussin AC Liquid 5 mL, By Mouth, Every 4 hours, PRN Cough, 0 Refills, Maintenance, 04/08/24 12:02:00 PM EDT, Syrup, Partial fill upon patient request if the prescription is for a schedule II opioid drug. Start Date: 04/08/24 Status: Ordered Medication Dispense Status: Completed Total Allowed Fills: 1 Fills Dispensed: 0 Walker See Instructions, # 1 each, Maintenance, Weight 98 kg Height 5'1 Dx generalized weakness, 04/09/24 12:20:00 PM EDT, Supply Start Date: 04/09/24 Status: Ordered Medication Dispense Status: Completed Quantity: 1.0 Unit: each Total Allowed Fills: 1 Fills Dispensed: 0 Walker See Instructions, # 1 each, Maintenance, Height 5'1 Weight 98 kg Dx: Generalized weakness, 04/09/24 4:57:00 PM EDT, Supply Start Date: 04/09/24 Status: Ordered Medication Dispense Status: Completed Quantity: 1.0 Unit: each Total Allowed Fills: 1 Fills Dispensed: 0 Problem List Condition Confirmation Course Effective Dates Status Health St [facility] Informant COVID-19 1 Confirmed 04/08/24 Active Obese class II Confirmed Active 1Problem added by Discern Expert Social History Social History Type Response Smoking Status Never (less than 100 in lifetime) entered on: 08/16/24 Sex Sex Representation Female (finding) Patient Care team information Care Team Personnel Name: Roseanne Vu RN Position: S RN Member Role: Primary Care Nurse Name: Everton Garcia RN Position: S RN Member Role: Primary Care Nurse Name: Ada Meadows RN Position: S RN Member Role: Primary Care Nurse Name: Valentin Levi MD Position: S Physician - Primary Care Member Role: PCP Address: [address] [facility] [address] Telecom: Name: Cassi Rolon RN Position: S RN Member Role: Primary Care Nurse Name: Lamar Bera RN Position: S RN Member Role: Primary Care Nurse Care Team Related Persons Name: JANET CARRERO Name: BRIANNA YOUSSEF Insurance Providers Guarantor name: JUANKelsi YOUSSEF Health Plan Information #: [address] [facility] [place] [employer] Payer Identifier: NA Member Number: [id number] Group Number: [id number] Subscriber Identifier: DENI Relationship to Subscriber: self Coverage Type: MEDICARE Coverage Verification Date: NA Telecom: NA Address:
--- NOTE | ~2025-07-13 | FL_ITS ---
EXAMINATION: XR BARIUM SWALLOW CLINICAL INFORMATION: EXAMINATION: FL ESOPHAGRAM CLINICAL INFORMATION: Dysphagia COMPARISON: None. TECHNIQUE: Patient swallowed effervescent granules, thick and thin barium and a barium tablet under fluoroscopic monitoring. FLUOROSCOPY TIME: 23 seconds DOSE AREA PRODUCT: 133 uGy-m2 (microgray-meters squared) FINDINGS: Swallowing: Normal. No penetration or aspiration events occurred throughout the duration of the study. Esophagus: Normal caliber and motility. No esophageal mass or ulceration. There is no evidence of stricture or stenosis, and a 12mm barium pill traversed the esophagus and GE junction without difficulty. Gastroesophageal Reflux: None. Stomach: No evidence of hiatal hernia. FL/FL barium swallow IMPRESSION: No significant abnormality demonstrated by barium swallow. Electronically signed by: Terry Mchugh MD 07/13/2025 03:55 PM [facility]IND
--- OUTSIDE RECORDS SUMMARY | 2025-07-13 09:18 | XMS_ITS | Patient Health Record ---
Author Organization [employer] Address [address] [place] [address] [address] [place] [address] Care Team Providers Care Public Health Aide Name Role Phone FEDERICAYvonne GAYTAN Primary Care Provider Georgi Tierney Unavailable [phone] Sanjiv Mohr Unavailable [phone] Allergies Allergen (clinical drug ingredient) Drug/Non Drug [...] Results Component Value Reference Range Notes Hemoglobin [id number] Reviewed date:01/22/2025 07:50:14 AM Interpretation: Performing Lab:[facility] [place], [address] [place] [address], Phone - [phone], Director - Maame Notes/Report: A courtesy copy of this report has been sent to [phone], Hemoglobin A1c 6.1 4.8-5.6 % . Prediabetes: 5.7 - 6.4 Diabetes: >6.4 Glycemic control for adults with diabetes: <7.0 Albumin/Creatinine Ratio,Uri ne-[id number] Reviewed date:01/22/2025 07:49:39 AM Interpretation: Performing Lab:[facility] [place], [address] [facility], [place], Phone - [phone], Director - Maame Notes/Report: A courtesy copy of this report has been sent to [phone], Creatinine, Urine 47.0 Not Estab. mg/dL Albumin, Urine <3.0 Not Estab. ug/mL Alb/Creat Ratio <6 0-29 mg/g creat Normal: 0 - 29 Moderately increased: 30 - 300 Severely increased: >300 Lipid Panel-[id number] Reviewed date:01/22/2025 07:50:08 AM Interpretation: Performing [facility], [address] [place] [address], Phone - [phone], Director - Maame Notes/Report: A courtesy copy of this report has been sent to [phone], Cholesterol, Total 120 100-199 mg/dL Triglycerides 92 0-149 mg/dL HDL Cholesterol 44 >39 mg/dL VLDL Cholesterol Erik 18 5-40 mg/dL LDL Chol Calc (NIH) 58 0-99 mg/dL Comp. Metabolic Panel (14)-3 Reviewed date:01/22/2025 07:50:00 AM Interpretation: Performing Lab:[facility] [place], [address] [facility], [place], Phone - [phone], Director - Maame Notes/Report: A courtesy copy of this report has been sent to [phone], [phone] Glucose 86 70-99 mg/dL BUN 12 8-27 [...] 22 0-32 IU/L Reason For Referral Reason Dr. 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 Please contact the patient to schedule. Referral Priority Routine Reason itching Please mukesh luate and treat Diagnosis 1 Pruritus, unspecifie d (L29.9) Referral Organization [facility] Referring Provider First Name GAYTAN Referring Provider Last Name [facility] Referred Provider Specialty Dermatology General Notes Please call the radha ent to schedule the appointment, [facility]. Please contact them at [phone], Linda Harvey 01/14/2025 04:13:40 PM > Referral Priority Routine Reason heart attack follow up please evaluate and treat Diagnosis 1 Encounter for follow -up examination after completed treatment for conditions other than malignant neoplasm (Z09) Referral Organization [facility] Referring Provider First Name GAYTAN Referring Provider Last Name [facility] Ref[facility] Referred Provider Specialty Cardiology General Notes referral was faxed t trey [facility]. Please contact patient for scheduling., Diann Multani 02/22/2025 04:26:45 PM > Referral Priority Routine Reason Evaluation and manag ement Wound care Please evaluate and treat Diagnosis 1 Encounter for change or removal of nonsurgical wound dressing (Z48.00) Referral Organization [facility] Referring Provider First Name GAYTAN Referring Provider Last Name [facility] Ref[facility] Referred Provider Specialty Other Medica l Care General Notes Please call the radha ent to schedule the appointment, Encounter created and SMS sent to the pt., Linda Harvey 04/01/2025 04:29:09 PM > Referral Priority Routine Reason Evaluation and manag ement Please evaluate and treat Diagnosis 1 Local infection of t he skin and subcutaneous tissue, unspecified (L08.9) Referral Organization [facility] Referring Provider First Name GAYTAN Referring Provider Last Name GU [facility] Referred Provider Specialty Other Medica l Care General Notes Please call the radha ent to schedule the appointment, Encounter created and SMS sent to the pt., Linda Harvey 04/09/2025 04:31:24 PM > Referral Priority Routine [...] Duration: 12 days 05/15/2024 Not-Takin g Nystatin 527582 UNIT/GM 1 application Externally Twice a day; [...] Risk Notes Problem Non-toxic single thyroid nodule (727763485) Nontoxic single thyroid nodule (E04.1) Active confirmed Problem Non-toxic multinodular goiter (28370422) Nontoxic multinodular goiter (E04.2) Active confirmed Problem Mixed hyperlipidemia (362808067) Mixed hyperlipidemia (E78.2) Active confirmed Problem Essential hypertension (24616281) Essential (primary) hypertension (I10) Active confirmed Problem Coronary arteriosclerosis of coronary artery bypass graft (416752246) Atherosclerosis of coronary artery bypass graft(s) without angina pectoris (I25.810) Active confirmed Problem Gastro-esophageal reflux disease without esophagitis (404489672) Gastro-esophageal reflux disease without esophagitis (K21.9) Active confirmed Problem Diaphragmatic hernia (55983708) Diaphragmatic hernia without obstruction or gangrene (K44.9) Active confirmed Problem Diverticulitis of colon (076689238) Diverticulitis of large intestine without perforation or abscess without bleeding (K57.32) Active confirmed Problem Fatty liver (780424260) Fatty (change of) liver, not elsewhere classified (K76.0) Active confirmed Problem Osteoarthritis (017470439) Polyosteoarthritis , unspecified (M15.9) Active confirmed Problem Congenital tracheomalacia (70197915) 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) Active confirmed Problem Abnormal gait (57186264) Unsteadiness on feet (R26.81) Active confirmed Problem Abnormal gait (15945614) Other abnormalities of gait and mobility (R26.89) Active confirmed Problem Solitary pulmonary nodule (307940290) Solitary pulmonary nodule (R91.1) Active confirmed Problem Imaging result abnormal (411885164) Abnormal findings on diagnostic imaging of other specified body structures (R93.89) Active confirmed Problem Chronic kidney disease stage 3A (disorder) (715279830) Chronic kidney disease, stage 3a (N18.31) Active confirmed Problem Chronic jfys-PGTZN-87 syndrome (disorder) (3984123656) Bdpt-IUDFA-86 condition (B94.8) Active confirmed Problem Chronic inzr-NPXOX-98 syndrome (disorder) (0639701547) Ebyw-XLQQF-51 syndrome (B94.8) Active confirmed Problem 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) (3525135297) Post COVID-19 condition, 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) Active confirmed Vital Signs Heart Rate 97 /min 01/12/2025 Temperature 98.3 degrees Fahrenheit 01/12/2025 Blood pressure diastolic 70 mm Hg 01/12/2025 Oximetry 98 % 01/12/2025 Height 4'1 in 01/12/2025 Blood pressure systolic 124 mm Hg 01/12/2025 Weight 195.3 lbs 01/12/2025 BMI 57.18 kg/m2 01/12/2025 Encounters Encounter Location Date Provider Diagnosis [address] [address] 07/22/2024 Sanjiv Mohr Essential (primary) hypertension I10 and Cough, unspecified R05.[address] [address] 09/03/2024 [facility] Hospital discharge follow-up Z09 [facility] [address] [place] [address] 10/29/2024 [facility] Slurred speech R47.8 1 ; Cough, unspecified R05.9 and Post COVID-19 condition, unspecified U09.9 [facility] [address] [place] [address] 01/12/2025 GAYTAN [facility] Encounter for genera l adult medical examination without abnormal findings Z00.00 ; Atherosclerosis of coronary artery bypass graft(s) without angina pectoris I25.810 ; Essential (primary) hypertension I10 ; Mixed hyperlipidemia E78.2 ; Pruritus, unspecified L29.9 ; Prediabetes R73.03 ; Chronic kidney disease, stage 3a N18.31 and Other abnormalities of gait and mobility R26.89 [facility] [address] [place] [address] 04/08/2025 GAYTAN GU Local infection of t he skin and subcutaneous tissue, unspecified L08.[address] [place] [address] 06/29/2025 [facility] [address] [place] [address] 07/13/2024 [facility] [address] [facility] [address] [place] [address] 07/14/2024 [facility] [address] [place] [address] 08/27/[address] [place] [address] 08/28/2024 [facility] [address] [place] [address] 09/09/[address] [place] [address] 09/16/2024 GAYTAN GUL [facility] [address] [facility] [place] [address] 09/24/2024 [facility] [address] [facility] [place] [address] 10/23/2024 [facility] [address] [facility] [place] [address] 10/28/2024 [facility] [address] [facility] [place] [address] 10/28/2024 [facility] [address] [facility] [place] [place] [address] 10/29/2024 [facility] [address] [facility] [place] [address] 12/01/2024 [facility] [address] [facility] [place] [address] 12/01/2024 [facility] [address] [facility] [place] [address] 12/04/2024 [facility] [address] [facility] [place] [address] 02/03/2025 [facility] [address] [place] [address] 03/29/2025 [facility] [address] [facility] [place] [address] 04/01/2025 [facility] [address] [facility] [place] [address] 04/05/2025 [facility] [address] [facility] [place] [address] 04/08/2025 [facility] [address] [place] [address] 04/14/2025 [facility] [address] [place] [address] 04/16/2025 GAYTAN L [facility] [address] [place] [address] 04/16/2025 GAYTAN L [facility] [address] [place] [address] 04/20/2025 GAYTAN L [facility] [address] [place] [address] 04/28/2025 GAYTAN [facility] [address] [place] [address] 07/16/2024 [facility] [address] [place] [address] 07/23/2024 GAYTAN GUL Cough R05.9 and Gastro-esophageal reflux disease without esophagitis K21.9 [facility] [address] [place] [address] 07/24/2024 [facility] [address] [place] [address] 08/04/2024 GAYTAN GUL Essential (primary) hypertension I10 [facility] [address] [place] [address] 08/05/2024 GAYTAN GUL Essential (primary) hypertension I10 [facility] [address] [place] [address] 08/14/2024 GAYTAN L [facility] [address] [place] [address] 08/14/2024 GAYTAN GUL Cough R05.9 [facility] [address] [place] [address] 08/16/2024 GAYTAN [facility] [address] [place] [address] 09/04/2024 [facility] [address] [place] [address] 09/08/2024 GAYTAN GUL [facility] [address] [facility] [place] [address] 09/09/2024 GAYTAN GUL [facility] [address] [facility] [place] [address] 09/16/2024 Kaityadeer Ganeshloum [facility] [address] [facility] [place] [address] 09/18/2024 [facility] [address] [facility] [place] [address] 09/25/2024 GAYTAN GUL [facility] [address] [facility] [place] [address] 09/25/2024 [facility] [address] [place] [address] 10/23/2024 GAYTAN L [facility] [address] [facility] [place] [address] 11/06/2024 GAYTAN L [facility] [address] [facility] [place] [address] 11/26/2024 GAYTAN GUL Cough R05.9 [facility] [address] [facility] [place] [address] 11/27/2024 GAYTAN GUL Cough, unspecified R05.9 [facility] [address] [facility] [place] [address] 12/01/2024 GAYTAN GUL [facility] [address] [facility] [place] [address] 12/02/2024 GAYTAN GUL [facility] [address] [facility] [place] [address] 01/22/2025 [facility] [address] [place] [address] 01/28/2025 [facility] GUL [facility] [address] [place] [address] 02/02/2025 GAYTAN GUL Cough R05.[address] [place] [address] 02/22/2025 GAYTAN Yvonne [facility] [address] [place] [address] 04/15/2025 GAYTAN GUYvonne Local infection of t he skin and subcutaneous tissue, unspecified L08.9 [facility] [address] [place] [address] 04/15/2025 GAYTAN Yvonne [address] [place] [address] 05/07/2025 LUCILA CORDERO Assessments Encounter Date Diagnosis (ICD Code) Assessment Notes Treatment Notes Treatment Clinical Notes Section Notes 07/23/2024 Cough (ICD-10 - R05.9) 08/04/2024 Essential (primary) hypertension (ICD-10 - I10) 08/05/2024 Essential (primary) hypertension (ICD-10 - I10) 08/14/2024 Cough (ICD-10 - R05.9) 09/03/2024 Hospital discharge follow-up (ICD-10 - Z09) 74-year-old lady with history of hypertension hyperlipidemia GERD post Kober syndrome hepatic steatosis who was admitted to [facility] on 08/16/24 for management of cough and shortness of breath she was found to have a ST elevation MO patient is here for a post hospital discharge, she was discharged on 08/23/24. ST elevation MO status post stent placement mid RCA DS, [...] to be following up with pulmonology at [facility] however the daughter told me that they are going to Dr. Amos pulmonology in [place]. Thyroid nodule she has history of subclinical hypothyroidism, in the past there was a question of a biopsy, at the time this was not followed up as patient went to the hospital and had an ST elevation MO. Currently she is on aspirin and Plavix. [...] of post coitus syndrome, hypertension, ST elevation MO status post stent, chronic cough tracheomalacia is [...] wrap's and elevation History of ST elevation MO status post stent placement mid RCA DS, left main is 45% stenosis but medically treated. Patient was seen by Dr. Santos she will follow up as an outpatient with district cardiology in 4-6 weeks. Continue with aspirin, continue Plavix [address] [place] daily atorvastatin 80 mg daily and metoprolol Lung nodulet followed by Dr. Amos pulmonology in [place] .Thyroid nodule she has history of subclinical hypothyroidism, multiple questions were answered today, spoke to patient's and daughter at length 07/22/2024 Essential (primary) hypertension (ICD-10 - I10) [...] R05.9) 11/27/2024 Cough, unspecified (ICD-10 - R05.9) 01/12/2025 Atherosclerosis of coronary artery bypass graft(s) without angina pectoris (ICD-10 - I25.810) Yanique is 74 years old lady with coronary artery disease and status post RUFUS to RCA and 45% stenosis of left main, hypertension, hyperlipidemia, gait instability and she uses a walker, obesity, CKD stage IIIa, pruritus and tracheomalacia and she follows up with Dr. Amos at [facility], GERD, multiple joint osteoarthritis, fatty liver and hiatal hernia is here today for annual physical. She is accompanied by her and her daughter is on the phone. Coronary artery disease. Currently she goes to cardiac rehab at [facility] and she is on metoprolol ER [...] she follows up with Dr. Amos at [facility], GERD, multiple joint osteoarthritis, fatty liver and hiatal hernia is here today for annual physical. She is accompanied by her and her daughter is on the phone. Coronary artery disease. Currently she goes to cardiac rehab at [facility] and she is on metoprolol ER [...] bone density study which we will offer. 02/02/2025 Cough (ICD-10 - R05.9) 04/08/2025 Local infection of the skin and subcutaneous tissue, unspecified (ICD-10 - L08.9) Yaquelin is 74 years old with non-ST elevation MO, hypertension, hyperlipidemia, GERD, obesity called today for [...] Caladryl for itching. She has appointment with produce service team member in the next couple weeks. she also requested [facility] for wound care and multiple skin eruptions. this visit was conducted over telephone in line with National Social Distancing Guidelines. Data gathered during this visit by patient self-report. Patient provided verbal consent to conduct the visit by telemedicine. Patient understands that it is a billable visit. Patient located in a home setting in [facility] during this telemedicine visit. Provider located at [facility] in [place] in [facility] 04/15/2025 Local infection of the skin and subcutaneous tissue, unspecified (ICD-10 - L08.9) 01/12/2025 Essential (primary) hypertension (ICD-10 - I10) Yainque is 74 years old lady with coronary artery disease and status post RUFUS to RCA and 45% stenosis of left main, hypertension, hyperlipidemia, gait instability and she uses a walker, obesity, CKD stage IIIa, pruritus and tracheomalacia and she follows up with Dr. Amos at [facility], GERD, multiple joint osteoarthritis, fatty liver and hiatal hernia is here today for annual physical. She is accompanied by her and her daughter is on the phone. Coronary artery disease. Currently she goes to cardiac rehab at [facility] and she is on metoprolol ER [...] bone density study which we will offer. 07/22/2024 Cough, unspecified (ICD-10 - R05.9) Yaquelin [...] of post coitus syndrome, hypertension, ST elevation MO status post stent, chronic cough tracheomalacia is [...] wrap's and elevation History of ST elevation MO status post stent placement mid RCA DS, left main is 45% stenosis but medically treated. Patient was seen by Dr. Santos she will follow up as an outpatient with district cardiology in 4-6 weeks. Continue with aspirin, continue Plavix 75 [place] daily atorvastatin 80 mg daily and metoprolol Lung nodulet followed by Dr. Amos pulmonology in [place] .Thyroid nodule she has history of subclinical hypothyroidism, multiple questions were answered today, spoke to patient's and daughter at length 10/29/2024 Post COVID-19 condition, unspecified (ICD-10 - U09.9) 74-yrs with history of post coitus syndrome, hypertension, ST elevation MO status post stent, chronic cough tracheomalacia is [...] wrap's and elevation History of ST elevation MO status post stent placement mid RCA DS, left main is 45% stenosis but medically treated. Patient was seen by Dr. Santos she will follow up as an outpatient with district cardiology in 4-6 weeks. Continue with aspirin, continue Plavix 75 [place] daily atorvastatin 80 mg daily and metoprolol Lung nodulet followed by Dr. Amos pulmonology in [place] .Thyroid nodule she has history of subclinical [...] she follows up with Dr. Amos at [facility], GERD, multiple joint osteoarthritis, fatty liver and hiatal hernia is here today for annual physical. She is accompanied by her and her daughter is on the phone. Coronary artery disease. Currently she goes to cardiac rehab at [facility] and she is on metoprolol ER [...] she follows up with Dr. Amos at [facility], GERD, multiple joint osteoarthritis, fatty liver and hiatal hernia is here today for annual physical. She is accompanied by her and her daughter is on the phone. Coronary artery disease. Currently she goes to cardiac rehab at [facility] and she is on metoprolol ER [...] she follows up with Dr. Amos at [facility], GERD, multiple joint osteoarthritis, fatty liver and hiatal hernia is here today for annual physical. She is accompanied by her and her daughter is on the phone. Coronary artery disease. Currently she goes to cardiac rehab at [facility] and she is on metoprolol ER [...] she follows up with Dr. Amos at [facility], GERD, multiple joint osteoarthritis, fatty liver and hiatal hernia is here today for annual physical. She is accompanied by her and her daughter is on the phone. Coronary artery disease. Currently she goes to cardiac rehab at [facility] and she is on metoprolol ER [...] she follows up with Dr. Amos at [facility], GERD, multiple joint osteoarthritis, fatty liver and hiatal hernia is here today for annual physical. She is accompanied by her and her daughter is on the phone. Coronary artery disease. Currently she goes to cardiac rehab at [facility] and she is on metoprolol ER [...] & Lat 06/30 Hepatitis B Surf Ab [id number] Hep B Core Ab, [id number] 04/29/2024 Next Appt Details Provider Name:LUCILA CORDERO , 08/05/2025 10:45:00 AM, [address], [place], [address], Insurance Providers Payer Name Payer Address Payer Phone Subscriber Number Group Number Insured Name Patient Relationship to Insured Coverage Start Date Coverage End Date [employer] MEDICARE COMPLETE [address] [address] [place] [phone] [id number] Yaquelin Chavez Self - patient is the insured Medical (General) History Medical History History ICD Code GERD arthritis, bilateral hand/thumb diverticulitis ST elevation [place] and status p ost RUFUS to RCA and 45% stenosis of Left main and optimize medical management Tracheomalacia and she follows up with Gopi Amos gait instability Obesity Surgical History Surgery Date(Month/Year) right total knee replacement left rotator cuff repair, left bicep mus dana -work related
--- OUTSIDE RECORDS SUMMARY | 2025-07-13 09:18 | XMS_ITS | Clinical Summary ---
Author Organization [employer] [facility] Address [address] [place] [address] Phone Care Team Providers Care Building Maintenance Mechanic Name Role Phone Unknown, Unknown Primary Care [...] patient's age to complete this topic IPV VACCINES Aged Out No longer eligi ble based on patient's age to complete this topic MENINGOCOCCAL VACCINES (ACWY) Aged Out No longer eligible based on patient's age to complete this topic MENINGOCOCCAL VACCINES (B) Aged Out N o longer eligible based on patient's age to complete this topic Medical Devices Not on file Insurance [employer] [facility] [employer] [facility] PPO BLUE [place] OUT OF STATE PPO [facility] OUT STATE PPO BLUE [place] OUT OF STATE PPO [facility] OUT [facility] STATE PPO [place] OUT OF STATE PPO [place] OUT OF STATE PPO Care Teams Building Maintenance Mechanic Relationship Specialty Start Date End Date Unknown, Unknown, PCP - General 09/21/19 Additional Source Comments The information contained in this document represents components of the legal health record. It is not the complete legal health record.[facility]
== END 2025-07-13 08:55 | disposition home or self-care (01) ==
LOC: HO.XRAY 08:54
PROVIDERS: PCP Hospitalist; Visit Provider Hospitalist
DX: K21.9 Gastro-esophageal reflux disease without esophagitis (principal)
CPT/HCPCS: 74220

== ENCOUNTER → 2025-07-13 08:55 | Outpatient (BNV) | payer MEDICARE, SELFPAY | PROVIDERS: PCP Hospitalist; Visit Provider Radiology Diagnostic Ultrasound | DX: K21.9 Gastro-esophageal reflux disease without esophagitis (principal) | CPT/HCPCS: 74221 ==